=== PATIENT | female | born 1990 | race Caucasian/White ===

== ENCOUNTER → 2019-04-01 08:46 | Outpatient (BNVA) | payer SELFPAY | PROVIDERS: Family Provider Internal Medicine; Visit Provider Nurse Practitioner Psychiatric/Mental Health | DX: F43.12 Post-traumatic stress disorder, chronic (principal); F33.2 Major depressive disorder, recurrent severe without psychotic features; F41.0 Panic disorder [episodic paroxysmal anxiety]; F17.210 Nicotine dependence, cigarettes, uncomplicated; Z86.59 Personal history of other mental and behavioral disorders | CPT/HCPCS: 99214 ==

== ENCOUNTER 2019-09-07 17:31 | Emergency (ER) | payer SELFPAY ==
--- NOTE | 2019-09-07 17:37 | XRR_ITS ---
PROCEDURE INFORMATION: Exam: XR Right Ankle Exam date and time: 09/07/2019 5:49 PM Age: 29 years old Clinical indication: Injury or trauma; Fall; Initial encounter; Sprain or strain; Right; Injury date: 2 wks ago; [place] details[place], foot/ankle pain TECHNIQUE: Imaging protocol: XR Right ankle. Views: Frontal and lateral views. COMPARISON: CR Foot 2 views, RIGHT [id number] 06/26/2016 3:08 PM FINDINGS: Bones/joints: Normal. Soft tissues: Normal. XR/XR ankle RT 2V [id number] IMPRESSION: No acute findings.
[2019-09-07 17:38] VITALS: BP 127/73; PULSE 95; RESP 14; TEMP 36.9; O2SAT 100; BMI 26.6
--- NOTE | 2019-09-07 17:38 | XRR_ITS ---
PROCEDURE INFORMATION: Exam: XR Right Foot Exam date and time: 09/07/2019 5:49 PM Age: 29 years old Clinical indication: Injury or trauma; Fall; Initial encounter; Sprain or strain; Right; Injury date: 2 weeks ago; Injury details: [place], RT foot/ankle pain TECHNIQUE: Imaging protocol: XR Right foot. Views: Frontal and lateral views. COMPARISON: CR Foot 2 views, RIGHT [id number] 06/26/2016 3:08 PM FINDINGS: Bones/joints: No acute bony abnormality identified. A cornuate navicular is present, a sometimes symptomatic normal variant. Fifth DIP joint fusion, normal variant. Soft tissues: Normal. XR/XR foot RT 2V [id number] IMPRESSION: No acute bony injury identified.
--- NOTE | 2019-09-07 19:04 | ED_ITS ---
HPI - Extremity Problem General: Chief complaint: Extremity Injury, Lower Stated complaint: foot and ankle pain Time Seen by Provider: 09/07/19 18:51 Source: patient Mode of arrival: ambulatory Limitations: no limitations History of Present Illness: HPI Narrative: 29-year-old female states she went [place] and has had right-sided foot pain s gregory then. States it has been on the bottom of her foot for 4 to 5 days and is much worse with walking. States it is improved with rest. She states the pain is currently a 2 out of 10. Denies any fevers. Denies any known injury. Complaint: extremity pain Onset (ago): day(s) Location: right Severity scale (1-10): 5 Associated symptoms: Deny chest pain, fever(s) or rash Review of Systems Const: Denies: fever(s), chills, body aches or change in appetite Eyes: Denies: blurry vision or eye discomfort ENMT: Denies: throat pain or dental pain Card: Denies: chest pain Resp: Denies: dyspnea GI: Denies: abdominal pain, nausea, vomiting or diarrhea : Denies: dysuria Musc: Denies: neck pain or back pain Skin/Breast: Denies: rash Neuro: Denies: headache(s) Psych: Denies: depression Isaac/Lymph: Denies: easy bruising All/Imm: Denies: urticaria PFSH ED PFSH: Medical History (Updated 09/07/19 @ 19:04 by Douglas Meng MD) Chronic post-traumatic stress disorder History of eating disorder Major depressive disorder, recurrent severe without psychotic features Nicotine dependence, cigarettes, uncomplicated Panic disorder Social History (Updated 04/29/19 @ 08:08 by Zaida Byrd LPN) Smoking and tobacco status: current every day smoker cigarettes Packs smoked pe r day: 1 Physical Exam Const: COMMON NORMALS: no acute distress, patient oriented x3 and healthy appearing HENMT: COMMON NORMALS: normocephalic and atraumatic HEAD & SCALP: normocephalic and atraumatic Eye: COMMON NORMALS: Equal, round and reactive pupils present and EOMs intact bilaterally PUPIL: Yes Equal, round and reactive pupils present Neck/C-Spine: COMMON NORMALS: full ROM and supple Chest: COMMONS NORMALS: normal inspection of the chest and normal palpation of entire chest wall Resp: COMMON NORMALS: normal respiratory effort, No retractions, No use of accessory muscles and clear to auscultation bilaterally AUSCULTATION: clear to auscultation bilaterally Cardio: COMMON NORMALS: regular rate, regular rhythm and No murmurs present (Cardio) RATE: regular rate RHYTHM: regular rhythm GI: COMMON NORMALS: Normal to inspection, nondistended, normoactive bowel sounds present, Soft to palpation, non-tender and no masses PALPATION: Yes Soft to palpation Extremity: COMMON NORMALS: normal to inspection and full ROM NARRATIVE EXTREMITY EXAM: No obvious deformity. She does have tenderness over plantar fascia of right foot. Neuro: COMMON NORMALS: patient oriented x3, moves all extremities and no focal motor deficits Psych: COMMON NORMALS: mental status grossly normal, Normal thought process present and cooperative THOUGHT PROCESS: Normal thought process present Skin: COMMON NORMALS: no rashes or lesions noted and no wounds GENERAL SKIN EXAM: no rashes or lesions noted Course Vital Signs: Vital signs: Vital Signs Temperature 98.5 F 09/07/19 17:38 Pulse Rate 95 09/07/19 17:38 Respiratory Rate 14 09/07/19 17:38 Blood Pressure 127/73 09/07/19 17:38 Pulse Oximetry 100 09/07/19 17:38 MDM - Extremity (Nontraumatic) MDM Narrative: Medical decision making narrative: Patient presents here with plantar fasciitis of the right foot. Patient given exercises to do and is to ice and will place on ibuprofen as well. She is stable for discharge and is return if worsening. Discharge Plan Discharge Patient Disposition: Home, Self-Care Clinical Impression: Plantar fasciitis of right foot Condition: Stable Prescriptions: New Naprosyn 500 mg tablet 500 mg PO BID PRN (Reason: pain) Qty: 20 RF: 0 No Action ibuprofen 600 mg tablet 600 mg PO Q6H PRNRF: 0 rizatriptan [Maxalt] 10 mg tablet 10 mg PO ONCE PRNRF: 0 lamotrigine [Lamictal] 200 mg tablet 200 mg PO BID Qty: 60 RF: 3 desvenlafaxine succinate [Pristiq] 100 mg tablet extended release 24 hr 100 mg PO QAM Qty: 30 RF: 3 clonazepam [Klonopin] 0.5 mg tablet 0.5 mg PO BID Qty: 60 RF: 3 cyproheptadine 4 mg tablet 4 mg PO .bedtime Qty: 30 RF: 3 Discharge Orders: Discharge Order (Routine); Ordered 09/07/19 Ordered By: Douglas Meng Referrals: TOÑO FOSTER DO [Primary Care Provider] - 1-3 days Discharge Diet: Advance as tolerated Discharge Activity: Resume usual activity Patient Instructions: Plantar Fasciitis Exercises (GEN), Plantar Fasciitis (ED) Coding 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
[2019-09-07] MEDS: HYDROcodone-acetaminophen 5-325 mg Tablet 1 TAB PO (19:12)
[2019-09-07 19:20] VITALS: RESP 16
== END 2019-09-07 19:20 | disposition home or self-care (01) ==
PROVIDERS: Emergency Provider Emergency Medicine; PCP Internal Medicine
DX: M72.2 Plantar fascial fibromatosis (principal); F17.210 Nicotine dependence, cigarettes, uncomplicated
CPT/HCPCS: 12345; 73600; 73620; 99281; 99283

== ENCOUNTER 2019-11-19 16:34 | Emergency (ER) | payer MEDICAID, SELFPAY ==
[2019-11-19 17:38] VITALS: BP 134/91; PULSE 95; RESP 17; TEMP 36.7; O2SAT 100; BMI 25.0
[2019-11-19 21:56] LABS: Basophils % 0.6 %; Eosinophils # 0.2 10^3/uL (0.0-0.8); Eosinophils % 3.9 %; Hematocrit 43.6 % (37.0-47.0); Hemoglobin 14.5 g/dL (11.5-15.3); Lymphocytes # 1.5 10^3/uL (0.8-4.8); Lymphocytes % 30.9 %; Mean Corpuscular HGB Conc 33.3 g/dL (30.0-36.0); Mean Corpuscular Hemoglobin 31.7 pg (28.0-34.0); Mean Corpuscular Volume 95.2 fL (81-99); Mean Platelet Volume 9.6 fL (7.4-10.4); Monocytes # 0.3 10^3/uL (0.2-0.9); Monocytes % 6.4 %; Neutrophils # 2.83 10^3/uL (1.8-7.7); Nucleated Red Blood Cells % 0 %; Platelet Count 225 10^3/cmm (130-400); Red Blood Count 4.58 10^6/uL (4.1-5.3); Red Cell Distribution Width 12.1 % (12.1-15.1); White Blood Count 4.9 10^3/uL (4.0-10.0)
[2019-11-19 22:13] LABS: HCG, Serum Qual Negative (Negative)
[2019-11-19 22:19] LABS: Alanine Aminotransferase 12 U/L (0-33); Albumin Level 4.8 g/dL (3.5-5.2); Alkaline Phosphatase 52 IU/L (35-105); Anion Gap 12.5 (5-19); Aspartate Amino Transferase 15 U/L (0-32); Blood Urea Nitrogen 11 mg/dL (6-20); Calcium 9.1 mg/dL (8.5-10.5); Carbon Dioxide 26 mmol/L (22-29); Chloride 103 mmol/L (98-107); Globulin 3.1 g/dL (1.3-4.6); Glomerular Filtration Rate 65.1 mL/min (90-130); Glucose 90 mg/dL (65-115); Lipase 22 U/L (13-60); Osmolality Calculated 280 mOsm/kg (285-295); Potassium 4.5 mmol/L (3.5-5.1); Sodium 137 mmol/L (136-145); Total Bilirubin 0.3 mg/dL (0.15-1.2); Total Protein 7.9 g/dL (6.6-8.7)
[2019-11-19 22:22] LABS: INR 0.94 (0.8-1.2); Partial Thromboplastin Time 33.4 SECONDS (23.9-36.7)
[2019-11-20 00:35] VITALS: BP 121/93; PULSE 88; RESP 16; O2SAT 100
--- NOTE | 2019-11-20 00:37 | W.ED.ABDPA2 ---
HPI - Abdominal Pain General: Chief Complaint: Abdominal Pain Stated Complaint: sore throat/vommiting blood Time Seen by Provider: 11/20/19 00:37 Source: patient Mode of arrival: ambulatory Limitations: no limitations History of Present Illness: HPI narrative: Patient comes in today for complaints of 5 days of nausea with vomiting with burning into the esophagus. Patient does have a history of gastritis and heartburn. Patient denies any diarrhea. Patient reports no other symptoms or illness. Patient does take clonazepam, Lamictal, trazodone, and Effexor for mental disorder, patient also takes ibuprofen as needed. Related Data: Date of Last Menstrual Period: 10/28/19 Review of Systems General: Reports: 10 or more systems reviewed and unremarkable except in HPI and below GI: Reports: abdominal pain PFSH ED PFSH: Medical History (Updated 11/20/19 @ 02:12 by LUISA Camejo) Chronic post-traumatic stress disorder History of eating disorder Major depressive disorder, recurrent severe without psychotic features Nicotine dependence, cigarettes, uncomplicated Panic disorder Social History (Updated 04/29/19 @ 08:08 by Zaida Byrd LPN) Smoking and tobacco status: current every day smoker cigarettes Packs smoked per day: 1 Female Reproductive History: Date of last menstrual period: 10/28/19 : 2 Physical Exam Const: COMMON NORMALS: no acute distress and patient oriented x3 GENERAL APPEARANCE: cooperative HENMT: COMMON NORMALS: normocephalic, TM's normal bilaterally and Normal external nose present HEAD & SCALP: normal to inspection and normocephalic NOSE: Normal external nose present TYMPANIC MEMBRANE: TM's normal bilaterally MOUTH: Normal oral and palatal mucosa present THROAT: posterior oropharynx normal Eye: GENERAL EYE: appearance normal, both eyes and all related structures Neck/C-Spine: COMMON NORMALS: full ROM Lymph: LYMPHATIC: no lymphadenopathy noted Chest: COMMONS NORMALS: normal inspection of the chest Resp: COMMON NORMALS: normal respiratory effort EFFORT & INSPECTION: Yes able to speak in complete sentences Cardio: COMMON NORMALS: regular rate and regular rhythm RATE: regular rate RHYTHM: regular rhythm GI: INSPECTION: Yes normal to inspection AUSCULTATION: Yes normoactive bowel sounds PALPATION: Yes Tenderness to palpation present (GI) (epigastric) : COMMON NORMALS: Yes no CVA tenderness BLADDER/KIDNEY EXAM: Yes no CVA tenderness Back/Pelvis: COMMON NORMALS: no CVA tenderness and thoracic and lumbar spine normal to inspection Extremity: COMMON NORMALS: normal to inspection Neuro: COMMON NORMALS: patient oriented x3 and moves all extremities Psych: COMMON NORMALS: mental status grossly normal and cooperative Skin: COMMON NORMALS: no rashes or lesions noted GENERAL SKIN EXAM: no rashes or lesions noted Course Vital Signs: Vital signs: Vital Signs Temperature 98.1 F 11/19/19 17:38 Pulse Rate 76 11/20/19 02:06 Respiratory Rate 17 11/20/19 02:06 Blood Pressure 110/79 11/20/19 02:06 Pulse Oximetry 100 11/20/19 02:06 MDM - Abdominal Pain MDM Narrative: Medical decision making narrative: Patient comes in today for complaints of burning discomfort in her stomach. Exam notes abdomen soft with some midepigastric tenderness. Respirations are even lungs are clear to auscultation. Skin is warm and dry. Differential diagnosis includes pancreatitis, gastritis, GERD. Laboratory values were unremarkable. Urinalysis was clear. Patient was given Protonix, Zofran and Benadryl to help with her nausea and discomfort. She was given a dose of GI cocktail with some minimal relief. Suspect patient probably has a gastritis may be early peptic ulcer we will continue her on pantoprazole and recommend follow-up with surgeon for upper GI. Patient reported understanding agreed to plan. Lab Data: Labs: Lab Results 11/19/19 11/19/19 11/19/19 Range/Units 21:45 21:45 21:45 WBC 4.9 (4.0-10.0) 10^3/ uL RBC 4.58 (4.1-5.3) 10^6/u L Hgb 14.5 (11.5-15.3) g/dL Hct 43.6 (37.0-47.0) % MCV 95.2 (81-99) fL MCH 31.7 (28.0-34.0) pg MCHC 33.3 (30.0-36.0) g/dL RDW 12.1 (12.1-15.1) % Plt Count 225 (130-400) 10^3/c mm MPV 9.6 (7.4-10.4) fL Neut % (Auto) 58.0 % Lymph % (Auto) 30.9 % Kings % (Auto) 6.4 % Eos % (Auto) 3.9 % Baso % (Auto) 0.6 % Neut # (Auto) 2.83 (1.8-7.7) 10^3/u L Lymph # (Auto) 1.5 (0.8-4.8) 10^3/u L Kings # (Auto) 0.3 (0.2-0.9) 10^3/u L Eos # (Auto) 0.2 (0.0-0.8) 10^3/u L Baso # (Auto) 0.0 (0.0-0.1) 10^3/u L Nucleated RBC % (a uto) 0 % Nucleated RBCs # 0.0 /100WBC PT (12.1-14.9) SECO NDS INR (0.8-1.2) APTT (23.9-36.7) SECO NDS Sodium 137 (136-145) mmol/L Potassium 4.5 (3.5-5.1) mmol/L Chloride 103 (98-107) mmol/L Carbon Dioxide 26 (22-29) mmol/L Anion Gap 12.5 (5-19) BUN 11 (6-20) mg/dL Creatinine 1.0 H (0.5-0.9) mg/dL GFR Calculation 65.1 L (90-130) mL/min Glucose 90 (65-115) mg/dL Calculated Osmolal ity 280 L (285-295) mOsm/k g Calcium 9.1 (8.5-10.5) mg/dL Total Bilirubin 0.3 (0.15-1.2) mg/dL AST 15 (0-32) U/L ALT 12 (0-33) U/L Alkaline Phosphata se 52 (35-105) IU/L Total Protein 7.9 (6.6-8.7) g/dL Albumin 4.8 (3.5-5.2) g/dL Globulin 3.1 (1.3-4.6) g/dL Lipase 22 (13-60) U/L HCG, Qual Negative (Negative) Urine Color (Yellow) Urine Appearance (CLEAR) Urine pH (5-7) Ur Specific Gravit y (1.005-1.030) Urine Protein (Negative) Urine Glucose (UA) (Normal) Urine Ketones (Negative) Urine Blood (Negative) Urine Nitrate (Negative) Urine Bilirubin (Negative) Urine Urobilinogen (Negative) mg/dL Ur Leukocyte Gisela ase (Negative) Urine RBC (0-2) /hpf Urine WBC (0-5) /hpf Ur Squamous Epith Cells (0-5) /hpf Amorphous Sediment Urine Bacteria (NONE) /hpf 11/19/19 11/20/19 Range/Units 21:45 00:59 WBC (4.0-10.0) 10^3/ uL RBC (4.1-5.3) 10^6/u L Hgb (11.5-15.3) g/dL Hct (37.0-47.0) % MCV (81-99) fL MCH (28.0-34.0) pg MCHC (30.0-36.0) g/dL RDW (12.1-15.1) % Plt Count (130-400) 10^3/c mm MPV (7.4-10.4) fL Neut % (Auto) % Lymph % (Auto) % Kings % (Auto) % Eos % (Auto) % Baso % (Auto) % Neut # (Auto) (1.8-7.7) 10^3/u L Lymph # (Auto) (0.8-4.8) 10^3/u L Kings # (Auto) (0.2-0.9) 10^3/u L Eos # (Auto) (0.0-0.8) 10^3/u L Baso # (Auto) (0.0-0.1) 10^3/u L Nucleated RBC % (a uto) % Nucleated RBCs # /100WBC PT 12.80 (12.1-14.9) SECO NDS INR 0.94 (0.8-1.2) APTT 33.4 (23.9-36.7) SECO NDS Sodium (136-145) mmol/L Potassium (3.5-5.1) mmol/L Chloride (98-107) mmol/L Carbon Dioxide (22-29) mmol/L Anion Gap (5-19) BUN (6-20) mg/dL Creatinine (0.5-0.9) mg/dL GFR Calculation (90-130) mL/min Glucose (65-115) mg/dL Calculated Osmolal ity (285-295) mOsm/k g Calcium (8.5-10.5) mg/dL Total Bilirubin (0.15-1.2) mg/dL AST (0-32) U/L ALT (0-33) U/L Alkaline Phosphata se (35-105) IU/L Total Protein (6.6-8.7) g/dL Albumin (3.5-5.2) g/dL Globulin (1.3-4.6) g/dL Lipase (13-60) U/L HCG, Qual (Negative) Urine Color Yellow (Yellow) Urine Appearance Cloudy (CLEAR) Urine pH 6 (5-7) Ur Specific Gravit y 1.020 (1.005-1.030) Urine Protein Neg (Negative) Urine Glucose (UA) Norm (Normal) Urine Ketones Negative (Negative) Urine Blood Neg (Negative) Urine Nitrate Negative (Negative) Urine Bilirubin Neg (Negative) Urine Urobilinogen Norm (Negative) mg/dL Ur Leukocyte Gisela ase Negative (Negative) Urine RBC 0-4 H (0-2) /hpf Urine WBC 0-4 H (0-5) /hpf Ur Squamous Epith Cells 15-25 H (0-5) /hpf Amorphous Sediment Not Reportable Urine Bacteria 1+ H (NONE) /hpf Discharge Plan Discharge Patient Disposition: Home Clinical Impression: Gastritis Qualifiers: Gastritis type: unspecified gastritis Chronicity: acute Gastritis bleeding: presence of bleeding unspecified Qualified Code(s): K29.00 - Acute gastritis without bleeding Condition: Stable Prescriptions: New pantoprazole 40 mg tablet,delayed release (DR/EC) 40 mg PO DAILY Qty: 14 RF: 0 ondansetron HCl 4 mg tablet 4 mg PO Q8H PRN (Reason: nausea and vomiting) Qty: 7 RF: 0 No Action ibuprofen 600 mg tablet 600 mg PO Q6H PRNRF: 0 rizatriptan [Maxalt] 10 mg tablet 10 mg PO ONCE PRNRF: 0 cyproheptadine 4 mg tablet 8 mg PO .bedtime Qty: 60 RF: 3 venlafaxine [Effexor XR] 150 mg capsule,extended release 24hr 150 mg PO QAM Qty: 30 RF: 3 lamotrigine [Lamictal] 200 mg tablet 200 mg PO BID Qty: 60 RF: 3 clonazepam [Klonopin] 0.5 mg tablet 0.5 mg PO BID Qty: 60 RF: 3 trazodone 50 mg tablet 50 mg PO .bedtime PRN (Reason: sleep) Qty: 30 RF: 1 Naprosyn 500 mg tablet 500 mg PO BID PRN (Reason: pain) Qty: 20 RF: 0 Discharge Orders: Discharge Order (Routine); Ordered 11/20/19 Ordered By: Ming Mcfarlane Referrals: Tamika Joel DO [Primary Care Provider] - Discharge Diet: Usual diet Discharge Activity: Increase activity as tolerated Patient Instructions: Gastritis (ED) Activity Restrictions/Additional Instructions: Home and rest. Drink plenty of water. Healthy diet and exercise. Take medications as directed. Follow-up with primary care. 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
[2019-11-20] MEDS: pantoprazole 40 mg SDV IVP (00:56)
[2019-11-20] MEDS: ondansetron 2 mg/ML SDV 2 mL 4 MG IVP (00:56)
[2019-11-20] MEDS: sodium chloride 0.9% 1,000 ML 999 ML IV ×2 (00:57→02:35)
[2019-11-20] MEDS: lidocaine 2% viscous 15 ML, aluminum-mag hydrox-simethicon 30 ML, sucralfate oral liq 1 GM PO (01:51)
[2019-11-20 01:59] LABS: Add Urine Microscopic? YES; Bacteria Urine 1+ /hpf; Bilirubin Urine Neg (Negative); Blood Urine Neg (Negative); Glucose Urine UA Norm (Normal); Ketones Urine Negative (Negative); Leukocyte Esterase Urine Negative (Negative); Nitrate Urine Negative (Negative); Protein Urine Neg (Negative); RBC Urine 0-4 /hpf (0-2); Squamous Epithelial Cell Urine 15-25 /hpf (0-5); Urine Appearance Cloudy (CLEAR); Urine Color Yellow (Yellow); Urobilinogen Urine Norm (Negative); WBC Urine 0-4 /hpf (0-5); pH Urine 6 (5-7)
[2019-11-20] MEDS: diphenhydrAMINE 50 mg/mL SDV 1mL 25 MG IVP (02:01)
[2019-11-20 02:06] VITALS: BP 110/79; PULSE 76; RESP 17; O2SAT 100
[2019-11-20 03:31] VITALS: BP 108/72; PULSE 76; RESP 15; O2SAT 100
[2019-11-20 03:48] VITALS: BP 104/74; PULSE 81; RESP 16; O2SAT 100
--- NOTE | 2019-11-22 09:41 | DCPLANNER ---
manager front had message to schedule a follow up appointment for patient with general surgery. manager front called [facility], spoke with Margarita, gave clinic patients information. manager front was told that patients information would be printed and reviewed. Clinic will call patient with appointment information.
--- NOTE | 2019-11-26 14:35 | DCPLANNER ---
Patient has a follow up appointment scheduled for , December 02, 2019 at 11:[address] Lim. Clinic will call patient with appointment information.
--- NOTE | 2019-12-10 11:33 | DCPLANNER ---
Patient had a follow up appointment scheduled for 12.02.19 with [facility] - patient did attend appointment.
== END 2019-11-20 03:46 | disposition home or self-care (01) ==
PROVIDERS: Emergency Provider Nurse Practitioner Family; PCP Internal Medicine
DX: K29.00 Acute gastritis without bleeding (principal); F17.210 Nicotine dependence, cigarettes, uncomplicated
CPT/HCPCS: 36415; 80053; 81001; 83690; 84703; 85025; 85610; 85730; 96361; 96374; 96375; 99283; C9113; J1200; J2405; J7030

== ENCOUNTER → 2019-12-03 07:43 | Outpatient (BNVA) | payer OTHER, SELFPAY | PROVIDERS: PCP Internal Medicine; Visit Provider Surgery | DX: Z20.828 Contact with and (suspected) exposure to other viral communicable diseases (principal) | CPT/HCPCS: 87635 ==

== ENCOUNTER 2019-12-08 08:45 | Day surgery (SDC) | payer MEDICAID, SELFPAY ==
[2019-12-06 11:02] VITALS: BMI 25.0
[2019-12-08 09:07] VITALS: BP 127/91; PULSE 84; RESP 18; TEMP 36.3; O2SAT 97; BMI 25.0
[2019-12-08] MEDS: sodium chloride 0.9% 1,000 ML 30 ML IV (09:33)
[2019-12-08 09:35] LABS: OR HCG Qualitative Urine Negative (Negative)
--- NOTE | 2019-12-08 09:39 | ANES.PREANE2 ---
Pre-Anesthetic Assessment Pre-Anesthetic Assessment: Height/Weight: Height 1.7 m Weight 72.575 kg Temp Pulse Resp BP Pulse Ox 97.4 F L 84 18 127/91 97 12/08/19 09:07 12/08/19 09:07 12/08/19 09:07 12/08/19 09:07 12/08/19 09:07 Preop Diagnosis: Nausea and vomiting Proposed Procedure: Operation Date: 12/08/19 10:15 Proposed Procedures p EGD 42011 K92.0(Not Applicable) - Slade Lim MD Familial anesthetic complications: Wake up and freaks out, cries uncontrollably Last intake: Intake Last Liquid Date 12/07/19 Last Liquid Time 20:00 Last Solid Date 12/07/19 Last Solid Time 20:00 Social: Social History: Tobacco Exam: Pre-Anes Outpt Exam: alert, oriented x 3, clear to auscultation bilaterally and regular rate & rhythm Airway: Cervical ROM: WNL MP: 4 Dentition: Full GI: GI: GERD Musc/skel: Musc/skel: Lower Back Pain Neuropsych: Neuropsych: Depression Anesthetic Plan: ASA status: 2 Anesthesia: MAC Risk of > 500 ml blood loss (7ml/kg in children): No Meds/Allergies Current Medications: Current Medications Generic Name Dose Route Start Last Admin Trade Name Freq PRN Reason Stop Dose Admin Sodium Chloride 1,000 mls @ 30 ml s/hr 12/08/19 09:00 12/08/19 09:33 Sodium Chloride 0.9% IV 12/09/19 08:59 30 mls/hr .Q24H BLAKE Administration PFSH Anesthesia PFSH: Medical History (Updated 12/03/19 @ 11:50 by Slade Lim MD) Chronic post-traumatic stress disorder History of eating disorder Major depressive disorder, recurrent severe without psychotic features Nicotine dependence, cigarettes, uncomplicated Panic disorder Social History Smoking and tobacco status: current every day smoker cigarettes Packs smoked per day: 1 Female Reproductive History: Date of last menstrual period: 10/28/19 Data Anesthesia Other Labs: Laboratory Results - last 48 hr 12/08/19 09:34 Urine HCG, Qual Negative Cardiac Studies: No Data to Display
--- NOTE | 2019-12-08 09:55 | W.PM.OPSUD ---
Surgery/Procedure H&P Update DATE OF PROCEDURE: December 08, 2019 DATE H&P PERFORMED: 12/02/19 H&P UPDATE INFORMATION: I have reviewed H&P completed within last 30 days, I have examined patient prior to procedure and No changes to prior documentation PREOP DIAGNOSIS: Nausea and vomiting PRIMARY INDICATION FOR PROCEDURE: The same PLANNED PROCEDURE: Operation Date: 12/08/19 10:15 Proposed Procedures p EGD 81460 K92.0(Not Applicable) - Slade Lim MD
[2019-12-08 11:12] VITALS: BP 118/68; PULSE 77; RESP 16; TEMP 36.1; O2SAT 99
[2019-12-08 11:25] VITALS: BP 112/64; PULSE 90; RESP 16; O2SAT 100
--- NOTE | 2019-12-08 12:00 | ANE.PACU2 ---
Inpatient post-anesthesia follow up: Airway intact: Yes Vital signs: Temperature 97 F Pulse Rate 90 Respiratory Rate 16 Blood Pressure 112/64 Pulse Oximetry 100 Oxygen Delivery Me thod Room Air Oxygen Flow Rate Fraction of Inspir ed Oxygen Hydration adequate: Yes Nausea and vomiting: No Mental status: Baseline
[2019-12-09 06:09] LABS: H. Pylori / CLO Test Negative
== END 2019-12-08 11:34 | disposition home or self-care (01) ==
PROVIDERS: Anesthesiology; PCP Internal Medicine; Visit Provider Surgery
PROC: 0DJ08ZZ Inspection of Upper Intestinal Tract, Via Natural or Artificial Opening Endoscopic (ICD-10-PCS; CPT 43235; principal; 2019-12-08 10:15)
DX: R11.2 Nausea with vomiting, unspecified (principal); K21.0 Gastro-esophageal reflux disease with esophagitis; K29.70 Gastritis, unspecified, without bleeding; K29.80 Duodenitis without bleeding; F17.210 Nicotine dependence, cigarettes, uncomplicated
CPT/HCPCS: 12345; 43239; 84703; 87077; J2250; J2704; J7030

== ENCOUNTER 2019-12-25 10:21 | Emergency (ER) | payer MEDICAID, SELFPAY ==
[2019-12-25 10:29] VITALS: BP 136/91; PULSE 95; RESP 16; TEMP 36.1; O2SAT 99; BMI 26.9
--- NOTE | 2019-12-25 11:02 | ED_ITS ---
HPI - Back Pain/Injury General: Chief Complaint: Back Pain/Injury Stated Complaint: Back Pain, trouble walking Time Seen by Provider: 12/25/19 10:27 History of Present Illness: HPI Narrative: 29-year-old female presents to the emergency room with complaint of low back pain that began suddenly while she was driving. No recent heavy lifting no recent trauma or falls. She has had problems with recurrent chronic low back pain and she has been referred to neur osurgery but she has not yet seen them she is not had any advanced imaging either. She denies any difficulty with bowel or bladder. MD elicited complaint: back pain Pertinent past history: prior back pain Onset (ago): hour(s) Timing: constant Severity: severe Similar Symptoms Previously: Yes Quality: sharp and spasming Location: lumbar spine Radiation: left upper leg and left leg below the knee Exacerbating factors: movement and walking Relieving factors: immobilization and supine Associated symptoms: Reports difficulty walking; Deny abdominal pain, arthralgias, chills, change in bowel habits, dysuria, fati onofre, fecal incontinence, fever(s), hematuria, myalgias, nausea, numbness, syncope, tingling/numbness/burning, urinary frequency, urinary urgency, vomiting or weakness Treatments prior to arrival: NSAIDS Work related injury: No Review of Systems Const: Denies: fever(s), chills or fatigue ENMT: Denies: throat pain, ear or mastoid pain, nasal discharge or nasal congestion Card: Denies: syncope Resp: Denies: dyspnea, productive cough or non-productive cough GI: Denies: abdominal pain, nausea, vomiting, fecal incontinence or change in bowel habits : Denies: dysuria, urinary urgency or hematuria Skin/Breast: Denies: rash or pruritus Neuro: Reports: difficulty walking [facility] ED PFSH: Medical History Chronic post-traumatic stress disorder History of eating disorder Major depressive disorder, recurrent severe without psychotic features Nicotine dependence, cigarettes, uncomplicated Panic disorder Social History Smoking and tobacco status: current every day smoker cigarettes Packs smoked per day: 1 Female Reproductive History: Date of last menstrual period: 10/28/19 Physical Exam Const: COMMON NORMALS: no acute distress GENERAL APPEARANCE: cooperative and comfortable ORIENTATION/CONSCIOUSNESS: Yes awake, Yes oriented to person, Yes oriented to place and Yes oriented to time HENMT: COMMON NORMALS: normocephalic, atraumatic and hearing grossly normal bilaterally HEAD & SCALP: normocephalic and atraumatic Neck/C-Spine: COMMON NORMALS: no JVD Resp: COMMON NORMALS: normal respiratory effort, No retractions, No use of accessory muscles and clear to auscultation bilaterally AUSCULTATION: clear to auscultation bilaterally Cardio: COMMON NORMALS: no JVD, regular rate, regular rhythm and No murmurs present (Cardio) RATE: regular rate RHYTHM: regular rhythm GI: COMMON NORMALS: Soft to palpation and No hepatosplenomegaly present AUSCULTATION: Yes normoactive bowel sounds PALPATION: Yes Soft to palpation, No Tenderness to palpation present (GI), No Guarding due to palpation present (GI) and Yes No hepatosplenomegaly present Back/Pelvis: OTHER: Deep tendon reflexes equal bilaterally dorsi and plantar flexion 5 of 5 decreased sensation in the L4-5 distribution of the left leg. Straight leg raising equivocal she has worsening of pain with raising of the right or left leg. Is difficult for her to distinguish any significant worsening with leg raising in the left leg. Extremity: COMMON NORMALS: normal to inspection, capillary refill normal, no clubbing, cyanosis or edema, no calf tenderness and no pedal edema Neuro: SENSORIUM/ORIENTATION: Yes oriented to person, Yes oriented to place and Yes oriented to time Skin: COMMON NORMALS: no rashes or lesions noted GENERAL SKIN EXAM: no rashes or lesions noted Course Vital Signs: Vital signs: Vital Signs Temperature 97.0 F L 12/25/19 10:29 Pulse Rate 84 12/25/19 12:15 Respiratory Rate 17 12/25/19 12:15 Blood Pressure 141/74 12/25/19 12:15 Pulse Oximetry 100 12/25/19 12:15 MDM - Back Pain/Injury MDM Narrative: Medical decision making narrative: No evidence of cauda equina syndrome at this time work on pain control medications given as below follow-up with primary care doctor and neurosurgery as previously planned including outpatient advanced imaging. Return if has fecal incontinence or urinary retention or uncontrolled back pain. Discharge Plan Discharge Patient Disposition: Home Clinical Impression: Lumbar radiculopathy Condition: Stable Prescriptions: New hydrocodone-acetaminophen 5-325 mg tablet 1 tab PO Q6H PRN (Reason: pain) Qty: 15 RF: 0 Medrol (Daniel) 4 mg tablets,dose pack See Rx Instructions .ROUTE .COMPLEX Qty: 21 RF: 0 tizanidine 4 mg capsule 4 mg PO Q6H PRN (Reason: muscle spasticity) Qty: 30 RF: 0 No Action rizatriptan [Maxalt] 10 mg tablet 10 mg PO ONCE PRN (Reason: Headache) RF: 0 cyproheptadine 4 mg tablet 8 mg PO .bedtime Qty: 60 RF: 3 venlafaxine [Effexor XR] 150 mg capsule,extended release 24hr 150 mg PO QAM Qty: 30 RF: 3 lamotrigine [Lamictal] 200 mg tablet 200 mg PO BID Qty: 60 RF: 3 clonazepam [Klonopin] 0.5 mg tablet 0.5 mg PO BID Qty: 60 RF: 3 ondansetron HCl [Zofran] 4 mg tablet 4 mg PO Q6H PRN (Reason: nausea and vomiting) Qty: 25 RF: 1 pantoprazole [Protonix] 40 mg tablet,delayed release (DR/EC) 40 mg PO DAILY Qty: 30 RF: 2 sucralfate [Carafate] 1 gram tablet 1 gm PO BID 30 Days Qty: 60 RF: 2 venlafaxine [Effexor XR] 75 mg capsule,extended release 24hr 75 mg PO QAM Qty: 30 RF: 3 trazodone 50 mg tablet 50 mg PO .bedtime PRN (Reason: sleep) Qty: 30 RF: 3 pantoprazole 40 mg tablet,delayed release (DR/EC) 40 mg PO DAILY Qty: 14 RF: 0 ondansetron HCl 4 mg tablet 4 mg PO Q8H PRN (Reason: nausea and vomiting) Qty: 7 RF: 0 Discharge Orders: Discharge Order (Routine); Ordered 12/25/19 Ordered By: Huey Rolle Referrals: Tamika Joel DO [Primary Care Provider] - Discharge Diet: Usual diet Discharge Activity: Increase activity as tolerated Activity Restrictions/Additional Instructions: Up with your primary care doctor as scheduled. 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
[2019-12-25 11:14] VITALS: RESP 16
[2019-12-25] MEDS: ondansetron 2 mg/ML SDV 2 mL 4 MG IVP (11:14)
[2019-12-25] MEDS: morphine 4 mg/mL SDV 1 mL IVP ×2 (11:14→12:01)
[2019-12-25] MEDS: dexamethasone 10 mg/mL INJ IVP (11:15)
[2019-12-25] MEDS: ketorolac 30 mg/mL INJ IVP (11:21)
[2019-12-25 12:01] VITALS: RESP 18; O2SAT 100
[2019-12-25] MEDS: orphenadrine 30 mg/mL Inj 2 mL 60 MG IVP (12:02)
[2019-12-25 12:15] VITALS: BP 141/74; PULSE 84; RESP 17; O2SAT 100
== END 2019-12-25 12:15 | disposition home or self-care (01) ==
PROVIDERS: Emergency Provider Family Medicine; PCP Internal Medicine
DX: M54.16 Radiculopathy, lumbar region (principal); F17.210 Nicotine dependence, cigarettes, uncomplicated
CPT/HCPCS: 12345; 96374; 96375; 96376; 99282; 99283; J1100; J1885; J2270; J2360; J2405

== ENCOUNTER → 2019-12-29 08:54 | Outpatient (BNVA) | payer MEDICAID, SELFPAY | PROVIDERS: PCP Internal Medicine; Visit Provider Counselor Professional | DX: F43.12 Post-traumatic stress disorder, chronic (principal); F33.2 Major depressive disorder, recurrent severe without psychotic features; F41.0 Panic disorder [episodic paroxysmal anxiety]; F17.210 Nicotine dependence, cigarettes, uncomplicated; Z86.59 Personal history of other mental and behavioral disorders | CPT/HCPCS: 90834 ==

== ENCOUNTER 2020-01-05 08:21 | Emergency (ER) | payer MEDICAID, SELFPAY ==
[2020-01-05] VITALS (8 sets, daily range): BP systolic 113–128; BP diastolic 75–84; PULSE 75–94; RESP 16–20; TEMP 37.1; O2SAT 96–99; BMI 28.0
--- NOTE | 2020-01-05 08:41 | W.ED.FEMALGU ---
Documented by User: FE Blankenship 01/05/20 12:29 HPI - Female Genitourinary General: Chief complaint: Urogenital-Female Stated complaint: back pain, unable to void Time Seen by Provider: 01/05/20 08:26 History of Present Illness: HPI Narrative: 29-year-old female patient presents to the emergency department with 1 week onset of pain with urination, inability to void, feeling of urgency and inability to empty her bladder. Reports chills x 1 week, night sweats - reports vomiting and nausea. States has not vomited today, reports continued nausea. MD elicited complaint: dysuria, UTI , back pain (lower) and flank pain (right) Pertinent past history: pyelonephritis and other (VCUG repair; tubal ligation) Onset (ago): week(s) (1) Location of symptoms: suprapubic, low back and flank Severity: similar to previous episodes Severity scale (1-10): 10 Quality of pain: dull and aching Consistency: constant and progressively worsening Vaginal discharge: none Vaginal bleeding: none Urinary symptoms: Difficulty Urinating, Dysuria, Flank Pain, Frequency and Urgency Exacerbating factors: urination and movement Relieving factors: urination Associated symptoms: Reports abdominal pain, fevers/chills, nausea and weakness; Deny headache(s) Treatment prior to arrival: none Patient : No Date of Last Menstrual Period: 10/28/19 Review of Systems General: Reports: 10 or more systems reviewed and unremarkable except in HPI and below Const: Reports: chills, change in appetite, fatigue, malaise and night sweats; Denies: fever(s) or diaphoresis Eyes: Denies: blurry vision or eye redness ENMT: Denies: throat pain, dental pain or disequilibrium Card: Denies: chest pain, palpitations or irregular heart rhythm Resp: Denies: dyspnea, productive cough, non-productive cough or wheezing GI: Reports: abdominal pain, nausea and vomiting; Denies: diarrhea, constipation, fecal incontinence or change in stool character : Reports: flank pain, difficulty voiding, dysuria, urinary frequency, urinary urgency and urinary hesitancy; Denies: oliguria, urinary incontinence or hematuria Musc: Denies: neck pain, back pain or muscle cramps Skin/Breast: Denies: rash or pruritus Neuro: Denies: headache(s), weakness in extremities or behavioral changes Isaac/Lymph: Denies: easy bruising PFSH ED PFSH: Medical History (Updated 01/05/20 @ 12:34 by Huey Rolle DO) Chronic post-traumatic stress disorder History of eating disorder Major depressive disorder, recurrent severe without psychotic features Nicotine dependence, cigarettes, uncomplicated Panic disorder Social History Smoking and tobacco status: current every day smoker cigarettes Packs smoked per day: 1 Female Reproductive History: Date of last menstrual period: 10/28/19 Physical Exam Const: COMMON NORMALS: no acute distress, patient oriented x3, healthy appearing and alert GENERAL APPEARANCE: cooperative, comfortable and well hydrated HENMT: COMMON NORMALS: normocephalic, Normal external nose present and moist oral mucous membranes HEAD & SCALP: normocephalic NOSE: Normal external nose present Eye: COMMON NORMALS: Equal, round and reactive pupils present and EOMs intact bilaterally GENERAL EYE: appearance normal, both eyes and all related structures PUPIL: Yes Equal, round and reactive pupils present Neck/C-Spine: COMMON NORMALS: full ROM, no lymphadenopathy and no meningeal signs GENERAL: Yes normal visual inspection and Yes trachea midline CERVICAL SPINE: Yes cervical ROM normal Lymph: LYMPHATIC: no lymphadenopathy noted Chest: COMMONS NORMALS: normal inspection of the chest Resp: COMMON NORMALS: normal respiratory effort and clear to auscultation bilaterally AUSCULTATION: clear to auscultation bilaterally Cardio: COMMON NORMALS: regular rhythm, S1 normal heart sound present and S2 normal heart sound present RHYTHM: regular rhythm HEART SOUNDS: S1 normal heart sound present and S2 normal heart sound present GI: COMMON NORMALS: Soft to palpation and non-tender INSPECTION: Yes normal to inspection PALPATION: Yes Soft to palpation : COMMON NORMALS: Yes no CVA tenderness BLADDER/KIDNEY EXAM: Yes no CVA tenderness and Yes CVA tenderness Back/Pelvis: COMMON NORMALS: no CVA tenderness and thoracic and lumbar spine normal to inspection GENERAL BACK: Yes CVA tenderness CVA tenderness: bilateral THORACIC SPINE/UPPER BACK: Yes normal to inspection LUMBAR SPINE/LOWER BACK: Yes ROM limited (flexion and extension), Yes pain with ROM (flexion/extension), Yes lumbar spinal tenderness Lumbar spinal tenderness location: L1, L2, L3, L4 and L5, Yes paraspinal muscle tenderness Lumbar paraspinal muscle tenderness: bilateral, Yes straight leg raise positive right and Yes straight leg raise positive left PELVIS: Yes buttocks normal SACROILIAC JOINTS: Yes SI joints normal SACRUM: no ecchymosis COCCYX: no swelling Extremity: COMMON NORMALS: normal to inspection and capillary refill normal Neuro: COMMON NORMALS: patient oriented x3 and no focal motor deficits SENSORIUM/ORIENTATION: Yes alert MENINGEAL SIGNS: Yes no meningeal signs SPEECH: speech normal MONOFILAMENT EXAM PERFORMED: Yes Monofilament Exam (small fiber function): L great toe: normal, L 3rd toe: normal, L 5th toe: normal, R great toe: normal, R 3rd toe: normal and R 5th toe: normal MOTOR EXAM: 5/5 motor strength present throughout Psych: COMMON NORMALS: mental status grossly normal, Normal thought process present and cooperative ACTIVITY/MOTOR BEHAVIOR: Yes appropriate eye contact THOUGHT PROCESS: Normal thought process present Skin: COMMON NORMALS: no rashes or lesions noted and turgor normal GENERAL SKIN EXAM: no rashes or lesions noted and turgor normal Course ED course: transfer of care to Dr Rolle, patient to have MRI lumbar spine Vital Signs: Vital signs: Vital Signs Temperature 98.7 F 01/05/20 13:12 Pulse Rate 83 01/05/20 13:12 Respiratory Rate 16 01/05/20 13:12 Blood Pressure 114/83 01/05/20 13:12 Pulse Oximetry 96 01/05/20 13:12 MDM - Female Lab Data: Labs: Lab Results 01/05/20 01/05/20 01/05/20 Range/Units 08:30 09:08 09:08 WBC 4.9 (4.0-10.0) 10^3/ uL RBC 4.52 (4.1-5.3) 10^6/u L Hgb 14.3 (11.5-15.3) g/dL Hct 42.3 (37.0-47.0) % MCV 93.6 (81-99) fL MCH 31.6 (28.0-34.0) pg MCHC 33.8 (30.0-36.0) g/dL RDW 12.0 L (12.1-15.1) % Plt Count 225 (130-400) 10^3/c mm MPV 9.6 (7.4-10.4) fL Neut % (Auto) 55.7 % Lymph % (Auto) 32.6 % [place] % (Auto) 6.8 % Eos % (Auto) 4.1 % Baso % (Auto) 0.6 % Neut # (Auto) 2.70 (1.8-7.7) 10^3/u L Lymph # (Auto) 1.6 (0.8-4.8) 10^3/u L [place] # (Auto) 0.3 (0.2-0.9) 10^3/u L Eos # (Auto) 0.2 (0.0-0.8) 10^3/u L Baso # (Auto) 0.0 (0.0-0.1) 10^3/u L Nucleated RBC % (a uto) 0 % Nucleated RBCs # 0.0 /100WBC Sodium 135 L (136-145) mmol/L Potassium 4.1 (3.5-5.1) mmol/L Chloride 103 (98-107) mmol/L Carbon Dioxide 25 (22-29) mmol/L Anion Gap 11.1 (5-19) BUN 14 (6-20) mg/dL Creatinine 0.8 (0.5-0.9) mg/dL GFR Calculation 84.2 L (90-130) mL/min Glucose 89 (65-115) mg/dL Calculated Osmolal ity 280 L (285-295) mOsm/k g Calcium 9.2 (8.5-10.5) mg/dL Total Bilirubin 0.2 (0.15-1.2) mg/dL AST 13 (0-32) U/L ALT 9 (0-33) U/L Alkaline Phosphata se 49 (35-105) IU/L Total Protein 6.9 (6.6-8.7) g/dL Albumin 4.6 (3.5-5.2) g/dL Globulin 2.3 (1.3-4.6) g/dL Urine Color Yellow (Yellow) Urine Appearance Hazy A (CLEAR) Urine pH 6 (5-7) Ur Specific Gravit y 1.015 (1.005-1.030) Urine Protein Neg (Negative) Urine Glucose (UA) Norm (Normal) Urine Ketones Negative (Negative) Urine Blood 2+ H (Negative) Urine Nitrate Negative (Negative) Urine Bilirubin Neg (Negative) Urine Urobilinogen Norm (Negative) mg/dL Ur Leukocyte Gisela ase 1+ H (Negative) Urine RBC Rare (0-2) /hpf Urine WBC 0-4 H (0-5) /hpf Ur Squamous Epith Cells >100 H (0-5) /hpf Amorphous Sediment Not Reportable Urine Bacteria 1+ H (NONE) /hpf Urine Yeast Trace /hpf Discharge Plan Discharge Patient Disposition: Home Clinical Impression: Lumbar radicular pain, Urinary retention Condition: Stable Prescriptions: New Flomax 0.4 mg capsule 0.4 mg PO DAILY Qty: 20 RF: 0 hydrocodone-acetaminophen 5-325 mg tablet 1 tab PO Q6H PRN (Reason: pain) Qty: 10 RF: 0 Discontinued trazodone 50 mg tablet 50 mg PO BEDTIME PRN (Reason: sleep) RF: 0 No Action rizatriptan [Maxalt] 10 mg tablet 10 mg PO DAILY PRN (Reason: Headache) RF: 0 venlafaxine [Effexor XR] 150 mg capsule,extended release 24hr 150 mg PO QAM Qty: 30 RF: 3 lamotrigine [Lamictal] 200 mg tablet 200 mg PO BID Qty: 60 RF: 3 clonazepam [Klonopin] 0.5 mg tablet 0.5 mg PO BID Qty: 60 RF: 3 venlafaxine [Effexor XR] 75 mg capsule,extended release 24hr 75 mg PO QAM Qty: 30 RF: 3 pantoprazole 40 mg tablet,delayed release (DR/EC) 40 mg PO DAILY Qty: 14 RF: 0 tizanidine 4 mg capsule 4 mg PO Q6H PRN (Reason: muscle spasticity) Qty: 30 RF: 0 cyproheptadine 4 mg tablet 8 mg PO BEDTIME RF: 0 Discharge Orders: Discharge Order (Routine); Ordered 01/05/20 Ordered By: Huey Rolle Referrals: Tamika Joel DO [Primary Care Provider] - Discharge Diet: Usual diet Discharge Activity: Increase activity as tolerated Activity Restrictions/Additional Instructions: Case management will make an appointment with you to see Dr. Jeff. If you have worsening problems return. 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 She previously been seen with symptoms and had severe back pain with radicular pain at that time she had no urinary retention. We had advised her to return if it worsens she comes now today presenting with complaint of difficulty urinating as well. Initially seen by the GAME PROGRAMER I assumed care of the case urine is negative. She has decreased reflexes and sensation as well as loss of dorsal flexion at the ankle on the right foot. MD elicited complaint: dysuria and flank pain Onset (ago): day(s) Severity: severe Quality of pain: sharp Consistency: constant Vaginal discharge: none Vaginal bleeding: none Urinary symptoms: Difficulty Urinating and Dysuria Exacerbating factors: other (Ambulation) Relieving factors: other (Resting supine) Associated symptoms: Reports abdominal pain and nausea; Deny short of breath, fevers/chills, headache(s), rash, seizures, syncope, vaginal bleeding, vaginal discharge or weakness Treatment prior to arrival: none Review of Systems Const: Reports: chills; Denies: fever(s) or body aches ENMT: Denies: throat pain, ear or mastoid pain, nasal discharge or nasal congestion Card: Denies: syncope Resp: Denies: dyspnea, productive cough or non-productive cough GI: Reports: abdominal pain, nausea and vomiting : Denies: vaginal discharge Skin/Breast: Denies: rash or pruritus Neuro: Denies: headache(s) PFS ED PFSH: Medical History (Updated 01/05/20 @ 12:34 by Huey Rolle DO) Chronic post-traumatic stress disorder History of eating disorder Major depressive disorder, recurrent severe without psychotic features Nicotine dependence, cigarettes, uncomplicated Panic disorder Social History Smoking and tobacco status: current every day smoker cigarettes Packs smoked per day: 1 Physical Exam Const: GENERAL APPEARANCE: cooperative ORIENTATION/CONSCIOUSNESS: Yes awake, Yes oriented to person, Yes oriented to place and Yes oriented to time HENMT: COMMON NORMALS: normocephalic, atraumatic and hearing grossly normal bilaterally HEAD & SCALP: normocephalic and atraumatic Neck/C-Spine: COMMON NORMALS: no JVD Resp: COMMON NORMALS: normal respiratory effort, No retractions, No use of accessory muscles and clear to auscultation bilaterally AUSCULTATION: clear to auscultation bilaterally Cardio: COMMON NORMALS: no JVD, regular rate, regular rhythm and No murmurs present (Cardio) RATE: regular rate RHYTHM: regular rhythm GI: COMMON NORMALS: Soft to palpation and No hepatosplenomegaly present AUSCULTATION: Yes normoactive bowel sounds PALPATION: Yes Soft to palpation, No Tenderness to palpation present (GI), No Guarding due to palpation present (GI) and Yes No hepatosplenomegaly present : SPECULUM EXAM - VAGINA: No vaginal bleeding OB/EXTERNAL & SPECULUM: No vaginal bleeding Extremity: COMMON NORMALS: normal to inspection, capillary refill normal, no clubbing, cyanosis or edema, no calf tenderness and no pedal edema Neuro: SENSORIUM/ORIENTATION: Yes oriented to person, Yes oriented to place and Yes oriented to time OTHER: Diminished patellar tendon reflexes +1/4 on the right. 1 of 4 strength of dorsiflexion of the at the ankle and of the right great toe. Patient reports decreased sensation to sharp touch of the right compared to left. Skin: COMMON NORMALS: no rashes or lesions noted GENERAL SKIN EXAM: no rashes or lesions noted Course ED course: MRI of the lumbar spine does not show any evidence of cauda equina syndrome. Her symptoms are primarily on her right leg it is the left leg that has the more pronounced disc bulge. Discussed with Dr. Lawton, he concurs. He will graciously see the patient in the next 2 days if needed. We will try to get her set up with that through case management so she has short-term follow-up. Also set her up to see Dr. Jeff. I did call him and reviewed the case with him working to have her hold her trazodone start tamsulosin, And we will remove the Vasquez. Turn if she has further problems. Vital Signs: Vital signs: Vital Signs Temperature 98.7 F 01/05/20 13:12 Pulse Rate 83 01/05/20 13:12 Respiratory Rate 16 01/05/20 13:12 Blood Pressure 114/83 01/05/20 13:12 Pulse Oximetry 96 01/05/20 13:12 MDM - Female Lab Data: Labs: Lab Results 01/05/20 01/05/20 01/05/20 Range/Units 08:30 09:08 09:08 WBC 4.9 (4.0-10.0) 10^3/ uL RBC 4.52 (4.1-5.3) 10^6/u L Hgb 14.3 (11.5-15.3) g/dL Hct 42.3 (37.0-47.0) % MCV 93.6 (81-99) fL MCH 31.6 (28.0-34.0) pg MCHC 33.8 (30.0-36.0) g/dL RDW 12.0 L (12.1-15.1) % Plt Count 225 (130-400) 10^3/c mm MPV 9.6 (7.4-10.4) fL Neut % (Auto) 55.7 % Lymph % (Auto) 32.6 % [place] % (Auto) 6.8 % Eos % (Auto) 4.1 % Baso % (Auto) 0.6 % Neut # (Auto) 2.70 (1.8-7.7) 10^3/u L Lymph # (Auto) 1.6 (0.8-4.8) 10^3/u L [place] # (Auto) 0.3 (0.2-0.9) 10^3/u L Eos # (Auto) 0.2 (0.0-0.8) 10^3/u L Baso # (Auto) 0.0 (0.0-0.1) 10^3/u L Nucleated RBC % (a uto) 0 % Nucleated RBCs # 0.0 /100WBC Sodium 135 L (136-145) mmol/L Potassium 4.1 (3.5-5.1) mmol/L Chloride 103 (98-107) mmol/L Carbon Dioxide 25 (22-29) mmol/L Anion Gap 11.1 (5-19) BUN 14 (6-20) mg/dL Creatinine 0.8 (0.5-0.9) mg/dL GFR Calculation 84.2 L (90-130) mL/min Glucose 89 (65-115) mg/dL Calculated Osmolal ity 280 L (285-295) mOsm/k g Calcium 9.2 (8.5-10.5) mg/dL Total Bilirubin 0.2 (0.15-1.2) mg/dL AST 13 (0-32) U/L ALT 9 (0-33) U/L Alkaline Phosphata se 49 (35-105) IU/L Total Protein 6.9 (6.6-8.7) g/dL Albumin 4.6 (3.5-5.2) g/dL Globulin 2.3 (1.3-4.6) g/dL Urine Color Yellow (Yellow) Urine Appearance Hazy A (CLEAR) Urine pH 6 (5-7) Ur Specific Gravit y 1.015 (1.005-1.030) Urine Protein Neg (Negative) Urine Glucose (UA) Norm (Normal) Urine Ketones Negative (Negative) Urine Blood 2+ H (Negative) Urine Nitrate Negative (Negative) Urine Bilirubin Neg (Negative) Urine Urobilinogen Norm (Negative) mg/dL Ur Leukocyte Gisela ase 1+ H (Negative) Urine RBC Rare (0-2) /hpf Urine WBC 0-4 H (0-5) /hpf Ur Squamous Epith Cells >100 H (0-5) /hpf Amorphous Sediment Not Reportable Urine Bacteria 1+ H (NONE) /hpf Urine Yeast Trace /hpf Discharge Plan Discharge Patient Disposition: Home Clinical Impression: Lumbar radicular pain, Urinary retention Condition: Stable Prescriptions: New Flomax 0.4 mg capsule 0.4 mg PO DAILY Qty: 20 RF: 0 hydrocodone-acetaminophen 5-325 mg tablet 1 tab PO Q6H PRN (Reason: pain) Qty: 10 RF: 0 Discontinued trazodone 50 mg tablet 50 mg PO BEDTIME PRN (Reason: sleep) RF: 0 No Action rizatriptan [Maxalt] 10 mg tablet 10 mg PO DAILY PRN (Reason: Headache) RF: 0 venlafaxine [Effexor XR] 150 mg capsule,extended release 24hr 150 mg PO QAM Qty: 30 RF: 3 lamotrigine [Lamictal] 200 mg tablet 200 mg PO BID Qty: 60 RF: 3 clonazepam [Klonopin] 0.5 mg tablet 0.5 mg PO BID Qty: 60 RF: 3 venlafaxine [Effexor XR] 75 mg capsule,extended release 24hr 75 mg PO QAM Qty: 30 RF: 3 pantoprazole 40 mg tablet,delayed release (DR/EC) 40 mg PO DAILY Qty: 14 RF: 0 tizanidine 4 mg capsule 4 mg PO Q6H PRN (Reason: muscle spasticity) Qty: 30 RF: 0 cyproheptadine 4 mg tablet 8 mg PO BEDTIME RF: 0 Discharge Orders: Discharge Order (Routine); Ordered 01/05/20 Ordered By: Huey Rolle Referrals: Tamika Joel DO [Primary Care Provider] - Discharge Diet: Usual diet Discharge Activity: Increase activity as tolerated Activity Restrictions/Additional Instructions: Case management will make an appointment with you to see Dr. Jeff. If you have worsening problems return. Discharge Date/Time: 01/05/20 13:19 Coding Level of Care Code ED Band Head Saw Operator for Jimg Fwd Exam Comprehensive
[2020-01-05 08:46] LABS: Add Urine Microscopic? YES; Bilirubin Urine Neg (Negative); Blood Urine 2+ (Negative); Glucose Urine UA Norm (Normal); Ketones Urine Negative (Negative); Leukocyte Esterase Urine 1+ (Negative); Nitrate Urine Negative (Negative); Protein Urine Neg (Negative); Specific Gravity, Urine 1.015 (1.005-1.030); Urine Appearance Hazy (CLEAR); Urine Color Yellow (Yellow); Urobilinogen Urine Norm (Negative); pH Urine 6 (5-7)
[2020-01-05 08:48] LABS: Add Urine Culture? No; Bacteria Urine 1+ /hpf; RBC Urine RARE /hpf (0-2); Squamous Epithelial Cell Urine >100 /hpf (0-5); WBC Urine 0-4 /hpf (0-5)
--- NOTE | 2020-01-05 09:04 | MR_ITS ---
WS: [id number] MRI LUMBAR SPINE NONCONTRAST HISTORY: urinary retention COMPARISON: 06/05/2018 TECHNIQUE: Sagittal and axial multisequence imaging is submitted. Mild RIGHT convex curvature the thoracic spine and LEFT curvature lumbar spine. No signal abnormality within the cord. Posterior alignment is normal. Benign hemangioma at L4. Disc spaces and vertebral body heights are well-preserved. Conus terminates normally at L1. L1-L2: Normal. L2-L3: Normal. L3-L4: Normal. L4-L5: Very mild annular disc bulging. There is significant motion artifact. No stenosis appreciated. Small amount of fluid in the facet joints. L5-S1: Mild annular disc bulging. Slightly asymmetric disc protrusion to the LEFT with very mild cont act on the L5 nerve root. Similar to the prior study. Urinary bladder is moderately well distended. MR/MR lumbar spine wo con* [id number] IMPRESSION: 1. No significant lumbar spine stenosis. 2. No compression upon the conus or mass effect. 3. Mild broad-based disc bulging LEFT L5-S1 foramen with mild contact on the L 5 nerve root. Similar to the study of 06/05/2018.
[2020-01-05] MEDS: ondansetron 2 mg/ML SDV 2 mL 4 MG IVP (09:12)
[2020-01-05] MEDS: sodium chloride 0.9% 500 ML 999 ML IV (09:13)
[2020-01-05] MEDS: morphine 4 mg/mL SDV 1 mL 6 MG IVP ×2 (09:15→11:33)
[2020-01-05 09:18] LABS: Basophils % 0.6 %; Eosinophils # 0.2 10^3/uL (0.0-0.8); Eosinophils % 4.1 %; Hematocrit 42.3 % (37.0-47.0); Hemoglobin 14.3 g/dL (11.5-15.3); Lymphocytes # 1.6 10^3/uL (0.8-4.8); Lymphocytes % 32.6 %; Mean Corpuscular HGB Conc 33.8 g/dL (30.0-36.0); Mean Corpuscular Hemoglobin 31.6 pg (28.0-34.0); Mean Corpuscular Volume 93.6 fL (81-99); Mean Platelet Volume 9.6 fL (7.4-10.4); Monocytes # 0.3 10^3/uL (0.2-0.9); Monocytes % 6.8 %; Neutrophils % 55.7 %; Nucleated Red Blood Cells % 0 %; Platelet Count 225 10^3/cmm (130-400); Red Blood Count 4.52 10^6/uL (4.1-5.3); White Blood Count 4.9 10^3/uL (4.0-10.0)
[2020-01-05 09:35] LABS: Alanine Aminotransferase 9 U/L (0-33); Albumin Level 4.6 g/dL (3.5-5.2); Alkaline Phosphatase 49 IU/L (35-105); Anion Gap 11.1 (5-19); Aspartate Amino Transferase 13 U/L (0-32); Blood Urea Nitrogen 14 mg/dL (6-20); Calcium 9.2 mg/dL (8.5-10.5); Carbon Dioxide 25 mmol/L (22-29); Chloride 103 mmol/L (98-107); Globulin 2.3 g/dL (1.3-4.6); Glomerular Filtration Rate 84.2 mL/min (90-130); Glucose 89 mg/dL (65-115); Osmolality Calculated 280 mOsm/kg (285-295); Potassium 4.1 mmol/L (3.5-5.1); Sodium 135 mmol/L (136-145); Total Bilirubin 0.2 mg/dL (0.15-1.2); Total Protein 6.9 g/dL (6.6-8.7)
--- NOTE | 2020-01-05 10:21 | PC.NURSE ---
Gone to MRI
--- NOTE | 2020-01-05 11:16 | PC.NURSE ---
Back from MRI, C/O low back and leg pain
[2020-01-05] MEDS: orphenadrine 30 mg/mL Inj 2 mL 60 MG IVP (11:34)
[2020-01-05] MEDS: dexamethasone 4 mg/mL INJ 10 MG IVP (11:49)
--- NOTE | 2020-01-05 12:41 | DCPLANNER ---
mining manager was asked to schedule a follow up appointment for patient with Dr. Jeff. mining manager called the office of Dr. Jeff, spoke with Shavonne, gave clinic patients information. mining manager was told that patients information would be printed and reviewed. Clinic will call patient with appointment information.
--- NOTE | 2020-01-05 13:15 | DCPLANNER ---
track manager was asked to schedule a follow up appointment for patient with Dr. Lawton. track manager called the ortho clinic, spoke with Pat, gave clinic patients information. track manager was told that patients information would be printed and reviewed. Clinic will call patient with appointment information.
--- NOTE | 2020-01-06 07:59 | DCPLANNER ---
Patient has a follow up appointment scheduled for Friday, January 17, [address] at 3:[address] Jeff. Clinic will call patient with appointment information.
--- NOTE | 2020-01-06 11:07 | DCPLANNER ---
manager social spoke with Pat at [facility] to confirm if an appointment was scheduled for patient. manager social was told that patient has a neuro surgeon in [place] that she see, and will continue to see her physician. No appointment scheduled at this time.
--- NOTE | 2020-02-09 12:28 | DCPLANNER ---
Patient had a follow up appointment scheduled for 01.17.[address] Jeff - patient did attend appointment.
== END 2020-01-05 13:19 | disposition home or self-care (01) ==
PROVIDERS: Nurse Practitioner Family; Emergency Provider Family Medicine; PCP Internal Medicine
DX: M54.16 Radiculopathy, lumbar region (principal); R33.9 Retention of urine, unspecified; F17.210 Nicotine dependence, cigarettes, uncomplicated
CPT/HCPCS: 12345; 51702; 72148; 80053; 81001; 85025; 96374; 96375; 96376; 99283; 99284; J0131; J1100; J2270; J2360; J2405; J7040

== ENCOUNTER 2020-01-06 13:06 | Outpatient (CLI) | payer MEDICAID, SELFPAY ==
--- NOTE | 2020-01-06 13:45 | MR_ITS ---
WS: [id number] MRI LUMBAR SPINE POST CONTRAST ONLY. HISTORY: DDD LUMBAR; RADICULOPATHY SPINAL REGION COMPARISON: None available. TECHNIQUE: Sagittal and axial multisequence imaging is submitted. Sagittal and axial T1 fat sat seque nces post-ProHance 16 cc IV. Only postcontrast imaging is submitted. Noncontrast MRI was performed on 01/05/2020. There are no enhancing lesions within the spinal canal or involvement of the conus. There is no mass effect upon the conus of the nerve roots. No discitis or osteomyelitis. MR/MR lumbar spine w con [id number] IMPRESSION: 1. No discitis or osteomyelitis. 2. No compression upon the conus.
== END 2020-01-06 13:07 | disposition home or self-care (01) ==
LOC: RADSHAW 13:09
PROVIDERS: PCP Family Medicine; Visit Provider Neurological Surgery
DX: M51.36 Other intervertebral disc degeneration, lumbar region (principal); M54.16 Radiculopathy, lumbar region
CPT/HCPCS: 72149; A9579

== ENCOUNTER → 2020-01-07 09:06 | Outpatient (BNVA) | payer MEDICAID, SELFPAY | PROVIDERS: PCP Family Medicine; Visit Provider Family Medicine | DX: R30.0 Dysuria (principal); F17.219 Nicotine dependence, cigarettes, with unspecified nicotine-induced disorders | CPT/HCPCS: 81000; 87077; 87086; 87184 ==

== ENCOUNTER → 2020-01-14 07:50 | Outpatient (BNVA) | payer MEDICAID, SELFPAY | PROVIDERS: PCP Family Medicine; Visit Provider Nurse Practitioner Psychiatric/Mental Health | DX: F33.2 Major depressive disorder, recurrent severe without psychotic features (principal); F41.0 Panic disorder [episodic paroxysmal anxiety]; F43.12 Post-traumatic stress disorder, chronic; F17.210 Nicotine dependence, cigarettes, uncomplicated; Z86.59 Personal history of other mental and behavioral disorders | CPT/HCPCS: 99214 ==

== ENCOUNTER → 2020-01-17 14:10 | Outpatient (BNVA) | payer MEDICAID, SELFPAY | PROVIDERS: PCP Family Medicine; Referring Provider Family Medicine; Visit Provider Nurse Practitioner Family | DX: R30.0 Dysuria (principal); N39.0 Urinary tract infection, site not specified | CPT/HCPCS: 81003 ==

== ENCOUNTER → 2020-01-18 07:56 | Outpatient (BNVA) | payer MEDICAID, SELFPAY | PROVIDERS: PCP Family Medicine; Visit Provider Counselor Professional | DX: F33.2 Major depressive disorder, recurrent severe without psychotic features (principal); F43.12 Post-traumatic stress disorder, chronic | CPT/HCPCS: 90834 ==

== ENCOUNTER 2020-01-25 11:32 | Emergency (ER) | payer MEDICAID, SELFPAY ==
[2020-01-25 11:39] VITALS: BP 117/79; PULSE 92; RESP 15; TEMP 36.4; O2SAT 99; BMI 28.1
--- NOTE | 2020-01-25 11:51 | W.ED.DENTAL ---
HPI - Dental/Oral General: Chief complaint: Dental/Oral Stated complaint: swollen gums post teeth removal Time Seen by Provider: 01/25/20 11:40 Source: patient and family Mode of arrival: ambulatory Limitations: no limitations History of Present Illness: HPI Narrative: Patient is a 29-year-old female who had her wisdom tooth taken out on her left lower mouth. She said that during the procedure the dentist realized it was infected when pus was draining while trying to take it out. She also said that the dentist had difficulty removing the tooth and had to drill down into her jaw. She was started on amoxicillin for 10 days. The tooth was taken out 7 days ago. She denies any fever, no nausea or vomiting. She does have pain on swallowing but no difficulty swallowing. She also has left jaw pain. She also is worried about the hole in her mouth where the tooth was, she does not want to eat solid foods because she does not want the food to get stuck in there. She states that she has been in pain since the tooth was removed. She has been taking hydrocodone's with no improvement. She is unable to take NSAIDs because she has stomach ulcers. MD Complaint: tooth pain Location: Tooth # (17) Onset (ago): week(s) (1) Duration: constant Severity: severe Relieving factors: nothing Context: history of dental caries Associated symptoms: Reports gum swelling and odynophagia; Denies fever(s), sore throat or tongue swelling Review of Systems General: Reports: 10 or more systems reviewed and unremarkable except in HPI and below Const: Denies: fever(s) Eyes: Denies: change in vision or blurry vision ENMT: Reports: odynophagia and dental pain; Denies: enlarged tonsils or oral sores Card: Denies: palpitations, irregular heart rhythm, edema or swelling of feet/ankles Resp: Denies: dyspnea, productive cough or non-productive cough GI: Denies: abdominal pain, nausea or vomiting : Denies: flank pain, difficulty voiding, dysuria, urinary frequency, urinary urgency or urinary hesitancy Musc: Denies: neck pain, back pain or extremity swelling Skin/Breast: Denies: rash, pruritus or erythema Neuro: Denies: headache(s), numbness in extremities or weakness in extremities Endo: Denies: polyuria, polydipsia or tired all the time All/Imm: Denies: tongue swelling PFSH ED PFSH: Medical History Chronic post-traumatic stress disorder History of eating disorder Major depressive disorder, recurrent severe without psychotic features Nicotine dependence, cigarettes, uncomplicated Panic disorder Recurrent UTI Surgical History H/O ureter repair History of colonoscopy (~2015) History of esophagogastroduodenoscopy (EGD) (~11/2019) History of laparoscopic cholecystectomy Family History Mother Chronic kidney disease (CKD) Grandfather Cancer Kidney Social History Smoking and tobacco status: current every day smoker cigarettes Packs smoked per day: 1 Alcohol intake: never Substance/Drug Use: never Marital status: Female Reproductive History: Date of last menstrual period: 01/22/20 Physical Exam Const: COMMON NORMALS: no acute distress, average body habitus, patient oriented x3, no limitations and healthy appearing HENMT: COMMON NORMALS: normocephalic and atraumatic HEAD & SCALP: normocephalic and atraumatic TEETH & GINGIVA: Yes caries (multiple teeth with caries.) THROAT: posterior oropharynx normal and tonsils absent OTHER: She has poor oral hygiene with multiple teeth with significant caries. ICD site of the surgically removed wisdom tooth on the left lower jaw, it is tender but not swollen and not erythematous. I did not appreciate any purulent drainage. No signs of infection at this time. Lymph: LYMPHATIC: no lymphadenopathy noted Resp: COMMON NORMALS: normal respiratory effort, No retractions, No use of accessory muscles and clear to auscultation bilaterally AUSCULTATION: clear to auscultation bilaterally Cardio: COMMON NORMALS: regular rate, regular rhythm, S1 normal heart sound present, S2 normal heart sound present and No murmurs present (Cardio) RATE: regular rate RHYTHM: regular rhythm HEART SOUNDS: S1 normal heart sound present and S2 normal heart sound present GI: COMMON NORMALS: Normal to inspection, nondistended, normoactive bowel sounds present, Soft to palpation and non-tender PALPATION: Yes Soft to palpation Extremity: COMMON NORMALS: normal to inspection, full ROM, capillary refill normal and no pedal edema Neuro: COMMON NORMALS: patient oriented x3 Course ED course: 29-year-old female with dental pain post surgical removal of an infected molar. On evaluation there does not appear to be any current infection, and I explained as much. I explained to her that she possibly has a dry socket or just normal pain post surgery especially as he was infected and required significant manipulation to have it taken out. I advised her regarding the defect still in her gum she needs to call this dental surgeon today and discuss it with him and to see if he needs to close it or let it heal by secondary intention. I explained that he possibly left the open due to the purulent drainage that came out when he was taking the tooth out. But she needs to call him today. She voiced understanding and is in agreement with the plan. Vital Signs: Vital signs: Vital Signs Temperature 97.5 F L 01/25/20 11:39 Pulse Rate 85 01/25/20 12:06 Respiratory Rate 16 01/25/20 12:06 Blood Pressure 122/82 01/25/20 12:06 Pulse Oximetry 100 01/25/20 12:06 MDM - Dental/Oral MDM Narrative: Medical decision making narrative: 29-year-old female patient who has pain post molar removal. On examination he does not appear complicated. We will discharge her home with some more pain medication and she is advised to call the dentist today for further advice. Medical Records: Attestation: I reviewed the patient's medical records. Discharge Plan Discharge Patient Disposition: Home Clinical Impression: Dry tooth socket, Pain, dental, Dental caries Condition: Stable Prescriptions: New Percocet 5-325 mg tablet 1 tab PO Q8H PRN (Reason: pain) Qty: 12 RF: 0 Continued rizatriptan [Maxalt] 10 mg tablet 10 mg PO DAILY PRN (Reason: Headache) RF: 0 clonazepam [Klonopin] 0.5 mg tablet 0.5 mg PO BID Qty: 60 RF: 3 venlafaxine [Effexor XR] 150 mg capsule,extended release 24hr 150 mg PO QAM Qty: 30 RF: 3 lamotrigine [Lamictal] 200 mg tablet 200 mg PO BID Qty: 60 RF: 3 ciprofloxacin HCl 500 mg tablet 500 mg PO BID Qty: 60 RF: 1 venlafaxine [Effexor XR] 75 mg capsule,extended release 24hr 75 mg PO QAM Qty: 30 RF: 3 sucralfate [Carafate] 1 gram tablet 1 gm PO BID RF: 0 pantoprazole 40 mg tablet,delayed release (DR/EC) 40 mg PO DAILY Qty: 14 RF: 0 tizanidine 4 mg capsule 4 mg PO Q6H PRN (Reason: muscle spasticity) Qty: 30 RF: 0 Flomax 0.4 mg capsule 0.4 mg PO DAILY Qty: 20 RF: 0 Discharge Orders: Discharge Order (Routine); Ordered 01/25/20 Ordered By: Yeimi Ayers Referrals: Era Yuen DO [Primary Care Provider] - 1-3 days Discharge Diet: As Directed Discharge Activity: Increase activity as tolerated Patient Instructions: Dental Caries (ED), Toothache (ED), Dry Socket (ED) Activity Restrictions/Additional Instructions: Return for any new or worsening symptoms. Call the dentist to remove the tooth today for further advice, especially regarding the hole left by the removal of the tooth. Take the pain medicine as needed. Follow the advice of the dentist. Coding Level of Care Code ED Helper Driver for Jimg Fwd Exam Detailed
[2020-01-25 12:06] VITALS: BP 122/82; PULSE 85; RESP 16; O2SAT 100
[2020-01-25 12:24] VITALS: BP 122/82; PULSE 83; RESP 15; O2SAT 100
== END 2020-01-25 12:26 | disposition home or self-care (01) ==
PROVIDERS: Emergency Provider Family Medicine; PCP Family Medicine
DX: M27.3 Alveolitis of jaws (principal); K02.9 Dental caries, unspecified; F17.210 Nicotine dependence, cigarettes, uncomplicated
CPT/HCPCS: 12345; 99281; 99282

== ENCOUNTER → 2020-01-27 07:37 | Outpatient (BNVA) | payer MEDICAID, SELFPAY | PROVIDERS: PCP Family Medicine; Visit Provider Counselor Professional | DX: F33.2 Major depressive disorder, recurrent severe without psychotic features (principal); F43.12 Post-traumatic stress disorder, chronic; Z86.59 Personal history of other mental and behavioral disorders; F41.0 Panic disorder [episodic paroxysmal anxiety] | CPT/HCPCS: 90834 ==

== ENCOUNTER → 2020-02-08 08:25 | Outpatient (BNVA) | payer MEDICAID, SELFPAY | PROVIDERS: PCP Family Medicine; Visit Provider Counselor Professional | DX: F33.2 Major depressive disorder, recurrent severe without psychotic features (principal); F43.12 Post-traumatic stress disorder, chronic; Z86.59 Personal history of other mental and behavioral disorders; F41.0 Panic disorder [episodic paroxysmal anxiety] | CPT/HCPCS: 90832 ==

== ENCOUNTER → 2020-02-10 11:58 | Outpatient (BNVA) | payer MEDICAID, SELFPAY | PROVIDERS: PCP Family Medicine; Visit Provider Family Medicine | DX: Z01.419 Encounter for gynecological examination (general) (routine) without abnormal findings (principal); F33.2 Major depressive disorder, recurrent severe without psychotic features; F41.0 Panic disorder [episodic paroxysmal anxiety]; F43.12 Post-traumatic stress disorder, chronic | CPT/HCPCS: 88175; 99214 ==

== ENCOUNTER 2020-02-24 08:25 | Outpatient (CLI) | payer MEDICAID, SELFPAY ==
--- NOTE | 2020-02-24 08:45 | US_ITS ---
WS: [id number] RENAL ULTRASOUND HISTORY: RECURRENT UTI COMPARISON: 09/28/2015 TECHNIQUE: 2-D and color Doppler imaging of the kidney submitted. Right kidney: 11.0 cm x 4.8 cm x 4.5 cm. Normal echogenicity with no hydronephrosis or mass. Left kidney: 10.8 cm x 5.2 cm x 5.8 cm. Normal echogenicity with no hydronephrosis or mass. Aorta: Normal. Urinary Bladder: Normal distention. US/US renal BI* [id number] IMPRESSION: Normal renal ultrasound.
== END 2020-02-24 08:26 | disposition home or self-care (01) ==
LOC: US 08:25
PROVIDERS: PCP Family Medicine; Visit Provider Urology
DX: N39.0 Urinary tract infection, site not specified (principal)
CPT/HCPCS: 76770; 81003

== ENCOUNTER 2020-02-29 16:41 | Emergency (ER) | payer MEDICAID, SELFPAY ==
--- NOTE | 2020-02-29 | XRR_ITS ---
[facility] Final Radiology Report Call: [phone] assistance Online chat: [email or web address] Name: DELROY ALMEIDA Age: 29Years F Date: 02/29/2020 MRN: [id number] SSN: -- : 1990 Study: XR SPINE THORACIC 3 VIEWS Requesting Physician: Maria M Reagan Images: 5 Add?l Studies: Provided Clinical History: PROCEDURE INFORMATION: Exam: XR Thoracic Spine, 3 Views Exam date and time: 02/29/2020 6:28 PM Age: 29 years old Clinical indication: Other: Mid to lower back; Pain in thoracic spine; Patient HX: Back pain while bending TECHNIQUE: Imaging protocol: XR of the thoracic spine, 3 views. COMPARISON: No relevant prior studies available. FINDINGS: Bones/joints: Normal. No acute fracture. Normal alignment. Soft tissues: Unremarkable. IMPRESSION: No acute findings. Thank you for allowing us to participate in the care of your patient. Dictated and Authenticated by: Rick Geronimo MD 02/29/2020 7:17 PM Central Time ([place] & [place]) CORNELIUS
[2020-02-29 17:17] VITALS: BP 115/80; PULSE 101; RESP 15; TEMP 36.2; O2SAT 99
--- NOTE | 2020-02-29 18:03 | XRR_ITS ---
PROCEDURE INFORMATION: Exam: XR Lumbosacral Spine, 2 or 3 Views Exam date and time: 02/29/2020 6:22 PM Age: 29 years old Clinical indication: Low back pain; Additional info: Back pain while bending TECHNIQUE: Imaging protocol: XR of the lumbosacral spine, 2 or 3 views. Other technique: AP, lateral and spot lateral views of the lumbar spine are submitted. COMPARISON: MR lumbar spine w con [id number] 01/06/2020 1:57 PM FINDINGS: Bones/joints: Slight leftward lumbar spinal curvature. Moderate T12-L1 degenerative disc narrowing. Anterior L4-L5 vertebral body marginal osteophytes. Mild-moderate L5-S1 disc height loss. Soft tissues: The gallbladder is likely surgically absent, with metallic clips overlying the gallbladder fossa. XR/XR lumbar spine 2-3V* [id number] IMPRESSION: 1. Degenerative changes as above. 2. No acute lumbar spinal bony abnormality identified. 3. Prior cholecystectomy.
--- NOTE | 2020-02-29 18:20 | W.ED.BACK ---
HPI - Back Pain/Injury General: Chief Complaint: Back Pain/Injury Stated Complaint: BACK PAIN Time Seen by Provider: 02/29/20 17:53 History of Present Illness: HPI Narrative: 29-year-old female patient presents to the emergency department with mid and lower back pain. She reports was slightly bent at the waist, wrapping a gift when she felt her back pop. She states her son also squeezed her too tight today at the onset of back pain. She reports neurosurgeon evaluation is scheduled for [facility] in March due to her chronic back pain. She denies urinary or bladder incontinence. Reports back pain is similar to that she is experienced in the past. She denies increased leg weakness or other neurological symptoms. MD elicited complaint: back pain and back injury Pertinent past history: prior back pain Onset (ago): hour(s) (1-2) Timing: constant Severity: moderate Similar Symptoms Previously: Yes Quality: dull, aching and spasming Location: lumbar spine and thoracic spine Radiation: buttocks Exacerbating factors: movement and walking Relieving factors: other (rest) Context: turning/twisting and bending Associated symptoms: Reports no associated symptoms and difficulty walking (due to pain to the lower and middle back); Deny abdominal pain, chills, dysuria, fever(s), nausea or vomiting Treatments prior to arrival: NSAIDS Work related injury: No Review of Systems General: Reports: 10 or more systems reviewed and unremarkable except in HPI and below Const: Denies: fever(s), chills or diaphoresis Eyes: Denies: blurry vision or eye redness ENMT: Denies: throat pain, dental pain or disequilibrium Card: Denies: chest pain, palpitations or irregular heart rhythm Resp: Denies: dyspnea, productive cough, non-productive cough or wheezing GI: Denies: abdominal pain, nausea or vomiting : Denies: difficulty voiding or dysuria Musc: Reports: back pain and limited range of motion (lumbar and mid thoracic); Denies: neck pain, joint swelling, muscle cramps or muscle weakness Skin/Breast: Denies: rash or pruritus Neuro: Reports: difficulty walking (due to pain to the lower and middle back); Denies: headache(s), numbness in extremities, weakness in extremities or behavioral changes Psych: Denies: anxiety or depression Isaac/Lymph: Denies: easy bruising PFSH ED PFSH: Medical History Chronic post-traumatic stress disorder History of eating disorder Major depressive disorder, recurrent severe without psychotic features Nicotine dependence, cigarettes, uncomplicated Panic disorder Recurrent UTI Surgical History H/O ureter repair History of colonoscopy (~2015) History of esophagogastroduodenoscopy (EGD) (~11/2019) History of laparoscopic cholecystectomy Family History Mother Chronic kidney disease (CKD) Grandfather Cancer Kidney Social History Smoking and tobacco status: current every day smoker cigarettes Packs smoked per day: 1 Alcohol intake: never Substance/Drug Use: never Marital status: Current occupational status: unemployed History of recent travel: No Female Reproductive History: Date of last menstrual period: 02/15/20 Physical Exam Const: COMMON NORMALS: no acute distress, average body habitus, patient oriented x3, healthy appearing, alert and well nourished EXAM LIMITATIONS: no behavioral limitations and no physical limitations GENERAL APPEARANCE: cooperative, comfortable, well kempt, well developed and well hydrated; not combative and not ill appearing NUTRITIONAL APPEARANCE: thin ORIENTATION/CONSCIOUSNESS: Yes awake, Yes oriented to person, Yes oriented to place and Yes oriented to time HENMT: COMMON NORMALS: normocephalic, atraumatic, Normal external nose present and moist oral mucous membranes HEAD & SCALP: normal to inspection, normocephalic and atraumatic FACE & SINUS: normal facial exam, sinuses nontender and face symmetric NOSE: Normal external nose present MOUTH: Normal oral and palatal mucosa present, lip normal and tongue normal THROAT: posterior oropharynx normal, tonsils normal and uvula midline Eye: COMMON NORMALS: Equal, round and reactive pupils present and EOMs intact bilaterally GENERAL EYE: appearance normal, both eyes and all related structures PUPIL: Yes Equal, round and reactive pupils present Neck/C-Spine: COMMON NORMALS: full ROM, no lymphadenopathy, supple and no meningeal signs GENERAL: Yes normal visual inspection and Yes trachea midline CERVICAL SPINE: Yes cervical ROM normal Lymph: LYMPHATIC: no lymphadenopathy noted Chest: COMMONS NORMALS: normal inspection of the chest and normal palpation of entire chest wall Resp: COMMON NORMALS: normal respiratory effort, No retractions, No use of accessory muscles and clear to auscultation bilaterally EFFORT & INSPECTION: Yes able to speak in complete sentences and No paradoxical thoraco-abdominal movements AUSCULTATION: clear to auscultation bilaterally Cardio: COMMON NORMALS: regular rhythm, S1 normal heart sound present, S2 normal heart sound present and Peripheral pulses 2+ throughout RHYTHM: regular rhythm HEART SOUNDS: S1 normal heart sound present and S2 normal heart sound present PERIPHERAL PULSES: Peripheral pulses 2+ throughout GI: COMMON NORMALS: Normal to inspection, nondistended, normoactive bowel sounds present, Soft to palpation and non-tender INSPECTION: Yes normal to inspection PALPATION: Yes Soft to palpation : COMMON NORMALS: Yes no CVA tenderness BLADDER/KIDNEY EXAM: Yes no CVA tenderness Back/Pelvis: COMMON NORMALS: no CVA tenderness and thoracic and lumbar spine normal to inspection THORACIC SPINE/UPPER BACK: Yes normal to inspection, Yes ROM limited, Yes thoracic spinal tenderness, Yes paraspinal muscle tenderness and Yes paraspinal muscle spasm LUMBAR SPINE/LOWER BACK: Yes normal to inspection, Yes ROM limited, Yes lumbar spinal tenderness, Yes paraspinal muscle tenderness, Yes paraspinal muscle spasm, Yes straight leg raise positive right, Yes straight leg raise positive left and Yes bend over test abnormal SACROILIAC JOINTS: Yes SI joints normal COCCYX: no swelling Extremity: COMMON NORMALS: normal to inspection and capillary refill normal Neuro: BARB COMA SCALE: document GCS findings Barb coma scale eye opening: Spontaneous Barb coma scale verbal response: Orientated [place] coma scale motor response: Obey commands [place] coma scale total score: 15 COMMON NORMALS: patient oriented x3 and no focal motor deficits SENSORIUM/ORIENTATION: Yes alert, Yes oriented to person, Yes oriented to place and Yes oriented to time MENINGEAL SIGNS: Yes no meningeal signs GAIT: Yes Normal gait present MOTOR EXAM: no tremor noted and Normal motor muscle tone present throughout Psych: COMMON NORMALS: mental status grossly normal, Normal thought process present and cooperative APPEARANCE: Yes well kempt ACTIVITY/MOTOR BEHAVIOR: Yes appropriate eye contact THOUGHT PROCESS: Normal thought process present Skin: COMMON NORMALS: no rashes or lesions noted and turgor normal GENERAL SKIN EXAM: no rashes or lesions noted and turgor normal Course ED course: 29-year-old female patient presents to the emergency department with onset of middle and lower back pain. Reports was slightly bent over wrapping gifts at time of onset. She also reports was hugged by her son who exacerbated lower back pain. MRI lumbar spine completed December 2019 did reveal slight disc bulge with mild contact of L5 root on the left. No other abnormalities appreciated. States has appointment with neurosurgeon in March. She is requesting prednisone as this has been helpful in the past, she is also requesting cyclobenzaprine which is also effective. Advised not to take cyclobenzaprine with Klonopin. Verbalized understanding. Advised on activity restriction and no bending or lifting greater than 10 pounds until improved. Also advised to return to the emergency department if she developed worsening pain or concerning symptoms. Vital Signs: Vital signs: Vital Signs Temperature 97.2 F L 02/29/20 17:17 Pulse Rate 101 H 02/29/20 17:17 Respiratory Rate 15 02/29/20 17:17 Blood Pressure 115/80 02/29/20 17:17 Pulse Oximetry 99 02/29/20 17:17 Discharge Plan Discharge Patient Disposition: Home Clinical Impression: Strain of thoracic spine Strain of lumbar region Qualifiers: Encounter type: initial encounter Qualified Code(s): S39.012A - Strain of muscle, fascia and tendon of lower back, initial encounter Condition: Stable Prescriptions: New cyclobenzaprine 10 mg tablet 10 mg PO TID PRN (Reason: muscle spasm) Qty: 20 RF: 0 Medrol (Daniel) 4 mg tablets,dose pack See Rx Instructions .ROUTE .COMPLEX Qty: 21 RF: 0 No Action rizatriptan [Maxalt] 10 mg tablet 10 mg PO DAILY PRN (Reason: Headache) RF: 0 venlafaxine [Effexor XR] 150 mg capsule,extended release 24hr 150 mg PO QAM Qty: 30 RF: 3 lamotrigine [Lamictal] 200 mg tablet 200 mg PO BID Qty: 60 RF: 3 clonazepam [Klonopin] 0.5 mg tablet 0.5 mg PO BID Qty: 60 RF: 3 mirtazapine 7.5 mg tablet 7.5 mg PO .bedtime Qty: 30 RF: 1 lidocaine 1.8 % adhesive patch,medicated 1 patch topical DAILY Qty: 30 RF: 1 sucralfate [Carafate] 1 gram tablet 1 gm PO BID RF: 0 ibuprofen 800 mg tablet 800 mg PO .prn RF: 0 Flomax 0.4 mg capsule 0.4 mg PO DAILY Qty: 30 RF: 12 ciprofloxacin HCl 500 mg tablet 500 mg PO BID Qty: 60 RF: 4 pantoprazole 40 mg tablet,delayed release (DR/EC) 40 mg PO DAILY Qty: 14 RF: 0 Discharge Orders: Discharge ED (Routine); Ordered 02/29/20 Ordered By: Maria M Reagan Referrals: Era Yuen DO [Primary Care Provider] - Discharge Diet: Usual diet Discharge Activity: Limit activity as instructed Patient Instructions: Low Back Strain (ED), Thoracic Pain (ED), Chronic Back Pain (ED) Activity Restrictions/Additional Instructions: Continue follow-up with your primary care provider/neurosurgeon as scheduled Turn to the emergency room if you develop urinary or bladder incontinence or inability to feel your legs, leg weakness or other concerning symptoms Continue current medications for back pain May take Tylenol as needed for pain, 1 g of Tylenol every 8 hours, continue with cool and warm compresses to the area No bending, straining or lifting over 10 pounds until back is improved Coding Level of Care Code ED Telephone Order Supervisor for Treasure Fwd Exam Comprehensive
[2020-02-29] MEDS: orphenadrine 30 mg/mL Inj 2 mL 60 MG IM (19:15)
[2020-02-29] MEDS: predniSONE 20 mg Tablet PO (19:40)
[2020-02-29 19:57] VITALS: BP 115/80; PULSE 96; RESP 16; O2SAT 99
== END 2020-02-29 19:58 | disposition home or self-care (01) ==
PROVIDERS: Emergency Provider Nurse Practitioner Family; PCP Family Medicine
DX: S39.012A Strain of muscle, fascia and tendon of lower back, initial encounter (principal); S29.012A Strain of muscle and tendon of back wall of thorax, initial encounter; F17.210 Nicotine dependence, cigarettes, uncomplicated; X50.1XXA Overexertion from prolonged static or awkward postures, initial encounter
CPT/HCPCS: 12345; 72072; 72100; 96372; 99281; 99283; J2360; J7512

== ENCOUNTER 2020-03-08 12:56 | Emergency (ER) | payer MEDICAID, SELFPAY ==
[2020-03-08 13:12] VITALS: BP 124/62; PULSE 124; RESP 16; TEMP 37.1; O2SAT 98; BMI 26.6
--- NOTE | 2020-03-08 13:48 | ED_ITS ---
Documented by User: FE Blankenship 03/11/20 09:45 HPI - COVID General: Chief Complaint: COVID symptoms Stated Complaint: fever, body aches, back pain, FELICIANO Time Seen by Provider: 03/08/20 13:25 Triage information: Has fever, cough or shortness of breath . No known COVID + exposure last 14 days History of Present Illness: HPI Narrative: 29 year old female presents to the ED with fever (100.4), chills, body aches and FELICIANO - reports chronic back pain, seen in the ED recently - reports potential COVID exposure with recent ED visit for LBP - denies loss of taste or smell. MD complaint: has COVID symptoms Prior covid testing: no COVID 19 common symptoms: positive fever(s), chills, fatigue, body aches, headache(s), nasal congestion and nausea; negative non-productive cough, productive cough, dyspnea, throat pain, vomiting or diarrhea COVID 19 other sytmptoms: negative chest pain or confusion Onset (ago): day(s) (2) Severity: moderate Treatment prior to arrival: ibuprofen COVID Results: SARS-CoV-2 Antigen (Rapid) Positive (Negative) H 03/08/20 14:54 03/08/20 Nasal/Oral Coronavirus 2019 PCR Negative 12/03/19 07:43 12/03/19 Review of Systems General: Reports: 10 or more systems reviewed and unremarkable except in HPI and below Const: Reports: fever(s), chills, body aches and fatigue Eyes: Denies: blurry vision or eye redness ENMT: Reports: nasal discharge, nasal congestion and post nasal drip; Denies: throat pain, hoarseness, halitosis, ear discharge or sinus pain Card: Denies: chest pain, palpitations or irregular heart rhythm Resp: Denies: dyspnea, productive cough, non-productive cough, wheezing or chest congestion GI: Reports: nausea; Denies: abdominal pain, vomiting, heartburn, diarrhea or constipation : Denies: difficulty voiding or dysuria Musc: Denies: neck pain, back pain or joint pain Skin/Breast: Denies: rash or pruritus Neuro: Reports: headache(s); Denies: numbness in extremities, difficulty walking, dizziness or confusion Psych: Reports: anxiety, depression and change in appetite Isaac/Lymph: Denies: easy bruising FOR[facility]LY [facility], LATER [facility] ED PFSH: Medical History Chronic post-traumatic stress disorder History of eating disorder Major depressive disorder, recurrent severe without psychotic features Nicotine dependence, cigarettes, uncomplicated Panic disorder Recurrent UTI Surgical History H/O ureter repair History of colonoscopy (~2015) History of esophagogastroduodenoscopy (EGD) (~11/2019) History of laparoscopic cholecystectomy Family History Mother Chronic kidney disease (CKD) Grandfather Cancer Kidney Social History Smoking and tobacco status: current every day smoker cigarettes Packs smoked per day: 1 Alcohol intake: never Marital status: Current occupational status: unemployed History of recent travel: No Female Reproductive History: Date of last menstrual period: 02/16/20 Physical Exam Const: COMMON NORMALS: no acute distress, patient oriented x3, healthy appearing, alert and well nourished GENERAL APPEARANCE: cooperative, comfortable and well hydrated; not ill appearing and not frail appearing NUTRITIONAL APPEARANCE: thin ORIENTATION/CONSCIOUSNESS: Yes awake, Yes oriented to person, Yes oriented to place and Yes oriented to time HENMT: COMMON NORMALS: normocephalic, atraumatic, Normal external nose present and moist oral mucous membranes HEAD & SCALP: normal to inspection, normocephalic and atraumatic FACE & SINUS: normal facial exam and face symmetric NOSE: Normal external nose present THROAT: posterior oropharynx normal and uvula midline Eye: COMMON NORMALS: Equal, round and reactive pupils present and EOMs intact bilaterally GENERAL EYE: appearance normal, both eyes and all related structures PUPIL: Yes Equal, round and reactive pupils present Neck/C-Spine: COMMON NORMALS: full ROM and no lymphadenopathy GENERAL: Yes normal visual inspection and Yes trachea midline CERVICAL SPINE: Yes cervical ROM normal Lymph: LYMPHATIC: no lymphadenopathy noted Chest: COMMONS NORMALS: normal inspection of the chest and normal palpation of entire chest wall Resp: COMMON NORMALS: normal respiratory effort, No retractions, No use of accessory muscles and clear to auscultation bilaterally EFFORT & INSPECTION: Yes able to speak in complete sentences AUSCULTATION: clear to auscultation bilaterally Cardio: COMMON NORMALS: regular rate, regular rhythm, S1 normal heart sound present, S2 normal heart sound present and Peripheral pulses 2+ throughout RATE: regular rate RHYTHM: regular rhythm HEART SOUNDS: S1 normal heart sound present and S2 normal heart sound present PERIPHERAL PULSES: Peripheral pulses 2+ throughout GI: COMMON NORMALS: Normal to inspection, nondistended, normoactive bowel sounds present, Soft to palpation and non-tender INSPECTION: Yes normal to inspection PALPATION: Yes Soft to palpation : COMMON NORMALS: Yes no CVA tenderness BLADDER/KIDNEY EXAM: Yes no CVA tenderness Back/Pelvis: COMMON NORMALS: no CVA tenderness THORACIC SPINE/UPPER BACK: Yes normal to inspection and Yes thoracic ROM normal LUMBAR SPINE/LOWER BACK: Yes normal to inspection, Yes lumbar spinal tenderness, Yes paraspinal muscle tenderness Lumbar paraspinal muscle tenderness: left and Yes straight leg raise positive left Extremity: COMMON NORMALS: normal to inspection, full ROM and capillary refill normal Neuro: COMMON NORMALS: patient oriented x3 and no focal motor deficits SENSORIUM/ORIENTATION: Yes alert, Yes oriented to person, Yes oriented to place and Yes oriented to time SPEECH: speech normal GAIT: Yes Normal gait present MOTOR EXAM: 5/5 motor strength present throughout Psych: COMMON NORMALS: mental status grossly normal, Normal thought process present and cooperative ACTIVITY/MOTOR BEHAVIOR: Yes appropriate eye contact THOUGHT PROCESS: Normal thought process present Skin: COMMON NORMALS: no rashes or lesions noted and turgor normal GENERAL SKIN EXAM: no rashes or lesions noted and turgor normal Course ED course: 29-year-old female patient presents to the emergency department with 2-day history of body aches, fever and headache. Covid positive here in the ED. Staff reports someone taking off her coat, patient became dizzy, fell off the exam bed, staff witnessed her landing on her bottom. She is complaining of left shoulder pain and dizziness/headache. X-ray left shoulder requested as well as CT of the head. Dr. Rolle was notified of fall. Patient is alert and oriented x4, neurologically at baseline. Extremities were examined for further injuries. Not able to reproduce pain to the lumbar spine upon exam. Muscle strength 5/5 x 4. Vital Signs: Vital signs: Vital Signs Temperature 98.7 F 03/08/20 13:12 Pulse Rate 86 03/08/20 19:49 Respiratory Rate 18 03/08/20 19:49 Blood Pressure 116/85 03/08/20 19:49 Pulse Oximetry 99 03/08/20 19:49 MDM - COVID Lab Data: Labs: Lab Results 03/08/20 03/08/20 03/08/20 Range/Units 14:54 15:25 15:25 WBC 1.7 L (4.0-10.0) 10^3/ uL RBC 4.87 (4.1-5.3) 10^6/u L Hgb 15.2 (11.5-15.3) g/dL Hct 45.5 (37.0-47.0) % MCV 93.4 (81-99) fL MCH 31.2 (28.0-34.0) pg MCHC 33.4 (30.0-36.0) g/dL RDW 11.8 L (12.1-15.1) % Plt Count 197 (130-400) 10^3/c mm MPV 9.6 (7.4-10.4) fL Neut % (Auto) 35.5 % Lymph % (Auto) 45.3 % [place] % (Auto) 15.1 % Eos % (Auto) 2.9 % Baso % (Auto) 1.2 % Neut # (Auto) 0.61 L* (1.8-7.7) 10^3/u L Lymph # (Auto) 0.8 (0.8-4.8) 10^3/u L [place] # (Auto) 0.3 (0.2-0.9) 10^3/u L Eos # (Auto) 0.1 (0.0-0.8) 10^3/u L Baso # (Auto) 0.0 (0.0-0.1) 10^3/u L Nucleated RBC % (a uto) 0 % Nucleated RBCs # 0.0 /100WBC ESR 4 (0-15) mm/hr Sodium (136-145) mmol/L Potassium (3.5-5.1) mmol/L Chloride (98-107) mmol/L Carbon Dioxide (22-29) mmol/L Anion Gap (5-19) BUN (6-20) mg/dL Creatinine (0.5-0.9) mg/dL GFR Calculation (90-130) mL/min Glucose (65-115) mg/dL Calculated Osmolal ity (285-295) mOsm/k g Calcium (8.5-10.5) mg/dL Total Bilirubin (0.15-1.2) mg/dL AST (0-32) U/L ALT (0-33) U/L Alkaline Phosphata se (35-105) IU/L C-Reactive Protein (0.0-4.9) mg/L Total Protein (6.6-8.7) g/dL Albumin (3.5-5.2) g/dL Globulin (1.3-4.6) g/dL Urine Color (Yellow) Urine Appearance (CLEAR) Urine pH (5-7) Ur Specific Gravit y (1.005-1.030) Urine Protein (Negative) Urine Glucose (UA) (Normal) Urine Ketones (Negative) Urine Blood (Negative) Urine Nitrate (Negative) Urine Bilirubin (Negative) Urine Urobilinogen (Negative) mg/dL Ur Leukocyte Gisela ase (Negative) Urine RBC (0-2) /hpf Urine WBC (0-5) /hpf Ur Squamous Epith Cells (0-5) /hpf Amorphous Sediment Urine Bacteria (NONE) /hpf Influenza Type A A g (Negative) Influenza Type B A g (Negative) SARS-CoV-2 Ag (Rap id) Positive H (Negative) 03/08/20 03/08/20 03/08/20 Range/Units 15:25 15:25 17:40 WBC (4.0-10.0) 10^3/ uL RBC (4.1-5.3) 10^6/u L Hgb (11.5-15.3) g/dL Hct (37.0-47.0) % MCV (81-99) fL MCH (28.0-34.0) pg MCHC (30.0-36.0) g/dL RDW (12.1-15.1) % Plt Count (130-400) 10^3/c mm MPV (7.4-10.4) fL Neut % (Auto) % Lymph % (Auto) % [place] % (Auto) % Eos % (Auto) % Baso % (Auto) % Neut # (Auto) (1.8-7.7) 10^3/u L Lymph # (Auto) (0.8-4.8) 10^3/u L [place] # (Auto) (0.2-0.9) 10^3/u L Eos # (Auto) (0.0-0.8) 10^3/u L Baso # (Auto) (0.0-0.1) 10^3/u L Nucleated RBC % (a uto) % Nucleated RBCs # /100WBC ESR (0-15) mm/hr Sodium 137 (136-145) mmol/L Potassium 4.4 (3.5-5.1) mmol/L Chloride 102 (98-107) mmol/L Carbon Dioxide 26 (22-29) mmol/L Anion Gap 13.4 (5-19) BUN 10 (6-20) mg/dL Creatinine 0.9 (0.5-0.9) mg/dL GFR Calculation 73.5 L (90-130) mL/min Glucose 79 (65-115) mg/dL Calculated Osmolal ity 282 L (285-295) mOsm/k g Calcium 9.4 (8.5-10.5) mg/dL Total Bilirubin 0.4 (0.15-1.2) mg/dL AST 14 (0-32) U/L ALT 17 (0-33) U/L Alkaline Phosphata se 64 (35-105) IU/L C-Reactive Protein 2.2 (0.0-4.9) mg/L Total Protein 7.2 (6.6-8.7) g/dL Albumin 4.7 (3.5-5.2) g/dL Globulin 2.5 (1.3-4.6) g/dL Urine Color Yellow (Yellow) Urine Appearance Sl hazy (CLEAR) Urine pH 5 (5-7) Ur Specific Gravit y 1.015 (1.005-1.030) Urine Protein Neg (Negative) Urine Glucose (UA) Norm (Normal) Urine Ketones Negative (Negative) Urine Blood Neg (Negative) Urine Nitrate Negative (Negative) Urine Bilirubin Neg (Negative) Urine Urobilinogen Norm (Negative) mg/dL Ur Leukocyte Gisela ase Negative (Negative) Urine RBC 0-4 H (0-2) /hpf Urine WBC 0-4 H (0-5) /hpf Ur Squamous Epith Cells Too numerous to c nt H (0-5) /hpf Amorphous Sediment Not Reportable Urine Bacteria 2+ H (NONE) /hpf Influenza Type A A g Negative (Negative) Influenza Type B A g Negative (Negative) SARS-CoV-2 Ag (Rap id) (Negative) COVID Results: SARS-CoV-2 Antigen (Rapid) Positive (Negative) H 03/08/20 14:54 03/08/20 Nasal/Oral Coronavirus 2019 PCR Negative 12/03/19 07:43 12/03/19 Discharge Plan Discharge Patient Disposition: Home Clinical Impression: COVID-19, Dizziness Condition: Stable Prescriptions: New Zofran 4 mg tablet 4 mg PO Q4H 5 Days Qty: 14 RF: 0 No Action rizatriptan [Maxalt] 10 mg tablet 10 mg PO DAILY PRN (Reason: Headache) RF: 0 lidocaine 1.8 % adhesive patch,medicated 1 patch topical DAILY Qty: 30 RF: 1 sucralfate [Carafate] 1 gram tablet 1 gm PO BID@0800,1900 RF: 0 diclofenac potassium 50 mg tablet 50 mg PO BID Qty: 14 RF: 0 Lamictal 200 mg tablet 200 mg PO BID@0800,2100 RF: 0 Klonopin 0.5 mg tablet 0.5 mg PO BID@0800,2100 RF: 0 Effexor XR 150 mg capsule,extended release 24hr 150 mg PO DAILY@0800 RF: 0 ciprofloxacin HCl 500 mg tablet 500 mg PO BID@0800,2100 RF: 0 Flomax 0.4 mg capsule 0.4 mg PO DAILY@0800 RF: 0 pantoprazole 40 mg tablet,delayed release (DR/EC) 40 mg PO DAILY@0800 RF: 0 mirtazapine 7.5 mg tablet 7.5 mg PO BEDTIME@2100 RF: 0 cyclobenzaprine 10 mg tablet 10 mg PO TID PRN (Reason: muscle spasm) Qty: 20 RF: 0 Discharge Orders: Discharge ED (Routine); Ordered 03/08/20 Ordered By: Malick Little Referrals: Era Yuen DO [Primary Care Provider] - Discharge Diet: Advance as tolerated and Clear Liquid Discharge Activity: Limit activity as instructed Patient Instructions: Viral Syndrome (ED), Near Syncope (ED), Dizziness (ED) Activity Restrictions/Additional Instructions: You will need to push fluids, drink lots and lots of fluids secondary to possibility of dehydration You will need to remain in quarantine, [facility] will be contacting you with further instructions, quarantine will last approximately 10 days May take Tylenol/ibuprofen as needed for pain/fever visitor services specialist will be contacting you with an appointment tomorrow for a follow-up, follow-up will be needed tomorrow via telemedicine. Return to the emergency department if you develop difficulty breathing, inability to catch her breath, or increased weakness Oxygen monitor will be provided, please return to the emergency department if you develop oxygen level less than 90% Coding Level of Care Code ED Geographic Information Systems Analyst for Chg Fwd Exam Comprehensive Documented by User: LUISA Magallon 03/09/20 17:02 HPI - COVID General: Chief Complaint: COVID symptoms Stated Complaint: fever, body aches, back pain, FELICIANO Time Seen by Provider: 03/08/20 13:25 COVID Results: SARS-CoV-2 Antigen (Rapid) Positive (Negative) H 03/08/20 14:54 03/08/20 Nasal/Oral Coronavirus 2019 PCR Negative 12/03/19 07:43 12/03/19 [facility]LY [facility] LAT[facility] ED PFS: Medical History Chronic post-traumatic stress disorder History of eating disorder Major depressive disorder, recurrent severe without psychotic features Nicotine dependence, cigarettes, uncomplicated Panic disorder Recurrent UTI Surgical History H/O ureter repair History of colonoscopy (~2015) History of esophagogastroduodenoscopy (EGD) (~11/2019) History of laparoscopic cholecystectomy Family History Mother Chronic kidney disease (CKD) Grandfather Cancer Kidney Social History Smoking and tobacco status: current every day smoker cigarettes Packs smoked per day: 1 Alcohol intake: never Marital status: Current occupational status: unemployed History of recent travel: No Course Vital Signs: Vital signs: Vital Signs Temperature 98.7 F 03/08/20 13:12 Pulse Rate 86 03/08/20 19:49 Respiratory Rate 18 03/08/20 19:49 Blood Pressure 116/85 03/08/20 19:49 Pulse Oximetry 99 03/08/20 19:49 MDM - COVID Lab Data: Labs: Lab Results 03/08/20 03/08/20 03/08/20 Range/Units 14:54 15:25 15:25 WBC 1.7 L (4.0-10.0) 10^3/ uL RBC 4.87 (4.1-5.3) 10^6/u L Hgb 15.2 (11.5-15.3) g/dL Hct 45.5 (37.0-47.0) % MCV 93.4 (81-99) fL MCH 31.2 (28.0-34.0) pg MCHC 33.4 (30.0-36.0) g/dL RDW 11.8 L (12.1-15.1) % Plt Count 197 (130-400) 10^3/c mm MPV 9.6 (7.4-10.4) fL Neut % (Auto) 35.5 % Lymph % (Auto) 45.3 % [place] % (Auto) 15.1 % Eos % (Auto) 2.9 % Baso % (Auto) 1.2 % Neut # (Auto) 0.61 L* (1.8-7.7) 10^3/u L Lymph # (Auto) 0.8 (0.8-4.8) 10^3/u L [place] # (Auto) 0.3 (0.2-0.9) 10^3/u L Eos # (Auto) 0.1 (0.0-0.8) 10^3/u L Baso # (Auto) 0.0 (0.0-0.1) 10^3/u L Nucleated RBC % (a uto) 0 % Nucleated RBCs # 0.0 /100WBC ESR 4 (0-15) mm/hr Sodium (136-145) mmol/L Potassium (3.5-5.1) mmol/L Chloride (98-107) mmol/L Carbon Dioxide (22-29) mmol/L Anion Gap (5-19) BUN (6-20) mg/dL Creatinine (0.5-0.9) mg/dL GFR Calculation (90-130) mL/min Glucose (65-115) mg/dL Calculated Osmolal ity (285-295) mOsm/k g Calcium (8.5-10.5) mg/dL Total Bilirubin (0.15-1.2) mg/dL AST (0-32) U/L ALT (0-33) U/L Alkaline Phosphata se (35-105) IU/L C-Reactive Protein (0.0-4.9) mg/L Total Protein (6.6-8.7) g/dL Albumin (3.5-5.2) g/dL Globulin (1.3-4.6) g/dL Urine Color (Yellow) Urine Appearance (CLEAR) Urine pH (5-7) Ur Specific Gravit y (1.005-1.030) Urine Protein (Negative) Urine Glucose (UA) (Normal) Urine Ketones (Negative) Urine Blood (Negative) Urine Nitrate (Negative) Urine Bilirubin (Negative) Urine Urobilinogen (Negative) mg/dL Ur Leukocyte Gisela ase (Negative) Urine RBC (0-2) /hpf Urine WBC (0-5) /hpf Ur Squamous Epith Cells (0-5) /hpf Amorphous Sediment Urine Bacteria (NONE) /hpf Influenza Type A A g (Negative) Influenza Type B A g (Negative) SARS-CoV-2 Ag (Rap id) Positive H (Negative) 03/08/20 03/08/20 03/08/20 Range/Units 15:25 15:25 17:40 WBC (4.0-10.0) 10^3/ uL RBC (4.1-5.3) 10^6/u L Hgb (11.5-15.3) g/dL Hct (37.0-47.0) % MCV (81-99) fL MCH (28.0-34.0) pg MCHC (30.0-36.0) g/dL RDW (12.1-15.1) % Plt Count (130-400) 10^3/c mm MPV (7.4-10.4) fL Neut % (Auto) % Lymph % (Auto) % [place] % (Auto) % Eos % (Auto) % Baso % (Auto) % Neut # (Auto) (1.8-7.7) 10^3/u L Lymph # (Auto) (0.8-4.8) 10^3/u L [place] # (Auto) (0.2-0.9) 10^3/u L Eos # (Auto) (0.0-0.8) 10^3/u L Baso # (Auto) (0.0-0.1) 10^3/u L Nucleated RBC % (a uto) % Nucleated RBCs # /100WBC ESR (0-15) mm/hr Sodium 137 (136-145) mmol/L Potassium 4.4 (3.5-5.1) mmol/L Chloride 102 (98-107) mmol/L Carbon Dioxide 26 (22-29) mmol/L Anion Gap 13.4 (5-19) BUN 10 (6-20) mg/dL Creatinine 0.9 (0.5-0.9) mg/dL GFR Calculation 73.5 L (90-130) mL/min Glucose 79 (65-115) mg/dL Calculated Osmolal ity 282 L (285-295) mOsm/k g Calcium 9.4 (8.5-10.5) mg/dL Total Bilirubin 0.4 (0.15-1.2) mg/dL AST 14 (0-32) U/L ALT 17 (0-33) U/L Alkaline Phosphata se 64 (35-105) IU/L C-Reactive Protein 2.2 (0.0-4.9) mg/L Total Protein 7.2 (6.6-8.7) g/dL Albumin 4.7 (3.5-5.2) g/dL Globulin 2.5 (1.3-4.6) g/dL Urine Color Yellow (Yellow) Urine Appearance Sl hazy (CLEAR) Urine pH 5 (5-7) Ur Specific Gravit y 1.015 (1.005-1.030) Urine Protein Neg (Negative) Urine Glucose (UA) Norm (Normal) Urine Ketones Negative (Negative) Urine Blood Neg (Negative) Urine Nitrate Negative (Negative) Urine Bilirubin Neg (Negative) Urine Urobilinogen Norm (Negative) mg/dL Ur Leukocyte Gisela ase Negative (Negative) Urine RBC 0-4 H (0-2) /hpf Urine WBC 0-4 H (0-5) /hpf Ur Squamous Epith Cells Too numerous to c nt H (0-5) /hpf Amorphous Sediment Not Reportable Urine Bacteria 2+ H (NONE) /hpf Influenza Type A A g Negative (Negative) Influenza Type B A g Negative (Negative) SARS-CoV-2 Ag (Rap id) (Negative) COVID Results: SARS-CoV-2 Antigen (Rapid) Positive (Negative) H 03/08/20 14:54 03/08/20 Nasal/Oral Coronavirus 2019 PCR Negative 12/03/19 07:43 12/03/19 Discharge Plan Discharge Patient Disposition: Home Clinical Impression: COVID-19, Dizziness Condition: Stable Prescriptions: New Zofran 4 mg tablet 4 mg PO Q4H 5 Days Qty: 14 RF: 0 No Action rizatriptan [Maxalt] 10 mg tablet 10 mg PO DAILY PRN (Reason: Headache) RF: 0 lidocaine 1.8 % adhesive patch,medicated 1 patch topical DAILY Qty: 30 RF: 1 sucralfate [Carafate] 1 gram tablet 1 gm PO BID@0800,1900 RF: 0 diclofenac potassium 50 mg tablet 50 mg PO BID Qty: 14 RF: 0 Lamictal 200 mg tablet 200 mg PO BID@0800,2100 RF: 0 Klonopin 0.5 mg tablet 0.5 mg PO BID@0800,2100 RF: 0 Effexor XR 150 mg capsule,extended release 24hr 150 mg PO DAILY@0800 RF: 0 ciprofloxacin HCl 500 mg tablet 500 mg PO BID@0800,2100 RF: 0 Flomax 0.4 mg capsule 0.4 mg PO DAILY@0800 RF: 0 pantoprazole 40 mg tablet,delayed release (DR/EC) 40 mg PO DAILY@0800 RF: 0 mirtazapine 7.5 mg tablet 7.5 mg PO BEDTIME@2100 RF: 0 cyclobenzaprine 10 mg tablet 10 mg PO TID PRN (Reason: muscle spasm) Qty: 20 RF: 0 Discharge Orders: Discharge ED (Routine); Ordered 03/08/20 Ordered By: Malick Little Referrals: Era Yuen DO [Primary Care Provider] - Discharge Diet: Advance as tolerated and Clear Liquid Discharge Activity: Limit activity as instructed Patient Instructions: Viral Syndrome (ED), Near Syncope (ED), Dizziness (ED) Activity Restrictions/Additional Instructions: You will need to push fluids, drink lots and lots of fluids secondary to possibility of dehydration You will need to remain in quarantine, [facility] will be contacting you with further instructions, quarantine will last approximately 10 days May take Tylenol/ibuprofen as needed for pain/fever visitor services specialist will be contacting you with an appointment tomorrow for a follow-up, follow-up will be needed tomorrow via telemedicine. Return to the emergency department if you develop difficulty breathing, inability to catch her breath, or increased weakness Oxygen monitor will be provided, please return to the emergency department if you develop oxygen level less than 90% Coding Level of Care Code ED Geographic Information Systems Analyst for Treasure Arnold Exam Comprehensive
[2020-03-08] MEDS: ondansetron 2 mg/ML SDV 2 mL 4 MG IVP (15:08)
[2020-03-08 15:32] LABS: SARS Covid-2 Antigen Positive (Negative)
[2020-03-08 15:37] LABS: Basophils % 1.2 %; Eosinophils # 0.1 10^3/uL (0.0-0.8); Eosinophils % 2.9 %; Hematocrit 45.5 % (37.0-47.0); Hemoglobin 15.2 g/dL (11.5-15.3); Lymphocytes # 0.8 10^3/uL (0.8-4.8); Lymphocytes % 45.3 %; Mean Corpuscular HGB Conc 33.4 g/dL (30.0-36.0); Mean Corpuscular Hemoglobin 31.2 pg (28.0-34.0); Mean Corpuscular Volume 93.4 fL (81-99); Mean Platelet Volume 9.6 fL (7.4-10.4); Monocytes # 0.3 10^3/uL (0.2-0.9); Monocytes % 15.1 %; Neutrophils % 35.5 %; Nucleated Red Blood Cells % 0 %; Platelet Count 197 10^3/cmm (130-400); Red Blood Count 4.87 10^6/uL (4.1-5.3); Red Cell Distribution Width 11.8 % (12.1-15.1); White Blood Count 1.7 10^3/uL (4.0-10.0)
[2020-03-08 15:46] LABS: Neutrophils # 0.61 10^3/uL (1.8-7.7)
[2020-03-08 16:12] LABS: Alanine Aminotransferase 17 U/L (0-33); Albumin Level 4.7 g/dL (3.5-5.2); Alkaline Phosphatase 64 IU/L (35-105); Anion Gap 13.4 (5-19); Aspartate Amino Transferase 14 U/L (0-32); Blood Urea Nitrogen 10 mg/dL (6-20); C Reactive Protein 2.2 mg/L (0.0-4.9); Calcium 9.4 mg/dL (8.5-10.5); Carbon Dioxide 26 mmol/L (22-29); Chloride 102 mmol/L (98-107); Globulin 2.5 g/dL (1.3-4.6); Glomerular Filtration Rate 73.5 mL/min (90-130); Glucose 79 mg/dL (65-115); Osmolality Calculated 282 mOsm/kg (285-295); Potassium 4.4 mmol/L (3.5-5.1); Sodium 137 mmol/L (136-145); Total Bilirubin 0.4 mg/dL (0.15-1.2); Total Protein 7.2 g/dL (6.6-8.7)
[2020-03-08 16:21] LABS: Influenza A by IFA Negative (Negative); Influenza B by IFA Negative (Negative)
--- NOTE | 2020-03-08 17:11 | XRR_ITS ---
PROCEDURE INFORMATION: Exam: XR Left Shoulder Exam date and time: 03/08/2020 5:13 PM Age: 29 years old Clinical indication: Injury or trauma; Fall; Blunt trauma (contusions or hematomas); Shoulder; Right; Additional info: Left shoulder pain TECHNIQUE: Imaging protocol: XR Left shoulder. Views: 2 or more views. COMPARISON: No relevant prior studies available. FINDINGS: Bones/joints: Normal. Soft tissues: Normal. XR/XR shoulder LT min 2V* [id number] IMPRESSION: No acute findings.
--- NOTE | 2020-03-08 17:11 | CTR_ITS ---
PROCEDURE INFORMATION: Exam: CT Head Without Contrast Exam date and time: 03/08/2020 5:15 PM Age: 29 years old Clinical indication: Injury or trauma; Fall; Blunt trauma (contusions or hematomas); Dizziness; Additional info: Fall, dizziness TECHNIQUE: Imaging protocol: Computed tomography of the head without contrast. Radiation optimization: All CT scans at this facility use at least one of these dose optimization techniques: automated exposure control; mA and/or kV adjustment per patient size (includes targeted exams where dose is matched to clinical indication); or iterative reconstruction. COMPARISON: CT head wo con* [id number] 01/26/2018 10:41 PM RADIATION DOSE METRICS: Total DLP (mGy-cm): 749.68 FINDINGS: Brain: Normal. No hemorrhage. Unremarkable white matter. No mass effect. Cerebral ventricles: No ventriculomegaly. Bones/joints: Unremarkable. No acute fracture. Paranasal sinuses: Visualized sinuses are unremarkable. No fluid levels. Mastoid air cells: Visualized mastoid air cells are well aerated. Soft tissues: Unremarkable. CT/CT head wo con* [id number] IMPRESSION: No acute intracranial abnormality. No change from previous. Radiation Dose CTDIVOL = (mGy): DLP = 749.68 (mGy-cm)
[2020-03-08 17:12] LABS: Erythrocyte Sedimentation Rate 4 mm/hr (0-15)
--- NOTE | 2020-03-08 17:15 | PC.NURSE ---
patient was taking off her jacket with the help of the pharmaceutical tech patient stated she got dizzy and slid off the bed tech asked if she was okay and patient stated that she was fine and nothing hurt later mariangel went in and patient stated that her head hurt and she hurt her shoulder
[2020-03-08 17:30] VITALS: BP 115/81; BP 128/77; BP 128/85; PULSE 110; PULSE 82; PULSE 90
[2020-03-08] MEDS: sodium chloride 0.9% 1,000 ML 999 ML IV (17:33)
[2020-03-08 18:36] LABS: Glucose Urine UA Norm (Normal); Ketones Urine Negative (Negative); Protein Urine Neg (Negative); Specific Gravity, Urine 1.015 (1.005-1.030); Urine Appearance SL Hazy (CLEAR); Urine Color Yellow (Yellow); pH Urine 5 (5-7)
[2020-03-08 18:37] LABS: Add Urine Microscopic? YES; Bilirubin Urine Neg (Negative); Blood Urine Neg (Negative); Leukocyte Esterase Urine Negative (Negative); Nitrate Urine Negative (Negative); Urobilinogen Urine Norm (Negative)
[2020-03-08 18:38] LABS: Bacteria Urine 2+ /hpf; RBC Urine 0-4 /hpf (0-2); Squamous Epithelial Cell Urine TOO NUMEROUS TO CNT /hpf (0-5); WBC Urine 0-4 /hpf (0-5)
[2020-03-08 18:39] LABS: Add Urine Culture? No
[2020-03-08 19:11] VITALS: BP 135/89; PULSE 90; RESP 17; O2SAT 99
[2020-03-08 19:49] VITALS: BP 116/85; PULSE 86; RESP 18; O2SAT 99
--- NOTE | 2020-03-09 09:19 | DCPLANNER ---
senior restaurant manager had message to schedule a follow up tele health visit for patient. senior restaurant manager called [facility], a follow up appointment was scheduled for , March 09, 2020 at 10:[address] Yuen. Clinic will call patient with appointment information.
--- NOTE | 2020-03-09 09:24 | DCPLANNER ---
Addendum entered by Lary Sibley 03/09/20 09:29: this note was made on wrong patient Original Note: fleet manager had message to schedule a follow up appointment for patient with ortho. fleet manager called the ortho clinic, spoke with Melissa, gave clinic patients information. fleet manager was told that patients information would be printed and reviewed. Clinic will call patient with appointment information.
== END 2020-03-08 19:49 | disposition home or self-care (01) ==
PROVIDERS: Nurse Practitioner Family; Emergency Provider Nurse Practitioner Family; PCP Family Medicine
DX: U07.1 COVID-19 (principal); F17.210 Nicotine dependence, cigarettes, uncomplicated
CPT/HCPCS: 12345; 70450; 73030; 80053; 81001; 85025; 85651; 86140; 87040; 87426; 87804; 96361; 96374; 96375; 99282; 99283; J0131; J2405; J7030

== ENCOUNTER 2020-03-13 17:24 | Emergency (ER) | payer MEDICAID, SELFPAY ==
[2020-03-13 17:36] VITALS: BP 121/81; PULSE 104; RESP 16; TEMP 36.3; O2SAT 99; BMI 27.4
--- NOTE | 2020-03-13 19:52 | ED_ITS ---
HPI - Female Genitourinary General: Chief complaint: Urogenital-Female Stated complaint: UNABLE TO URINATE, COVID + Time Seen by Provider: 03/13/20 19:49 History of Present Illness: HPI Narrative: Patient is a 29-year-old female who comes to the ED with anuria. Patient tested positive for COVID-19 on March 08[address] Patient sees Dr. Jeff and recently had an appointment with him on February 23 she was diagnosed with a UTI and put on ciprofloxacin. Today she urinated a little bit in the morning and then was able to void some this evening. Patient says she has had this acute urinary retention once before when being treated for a bad UTI she developed urinary retention and she had to get a Vasquez catheter placed. She has drink coffee and multiple bottles of water and feels like her bladder is full and is uncomfortable and she needs to urinate but is unable to. Patient also has some Covid symptoms of fevers and chills and has a headache. Associated symptoms: Reports abdominal pain (Lower abdominal pain over bladder.) and headache(s); Deny nausea Date of Last Menstrual Period: 02/16/20 Review of Systems Const: Reports: fever(s) and chills; Denies: fatigue Eyes: Denies: change in vision or eye discomfort ENMT: Denies: throat pain, odynophagia, nasal discharge or nasal congestion Card: Denies: chest pain, palpitations, edema, swelling of feet/ankles, dyspnea on exertion or orthopnea Resp: Denies: dyspnea, productive cough or non-productive cough GI: Reports: abdominal pain (Lower abdominal pain over bladder.); Denies: nausea, vomiting, diarrhea, constipation or hematochezia : Reports: difficulty voiding and oliguria; Denies: flank pain, dysuria or hematuria Musc: Denies: neck pain, back pain or extremity swelling Skin/Breast: Denies: rash or new lesions Neuro: Reports: headache(s); Denies: numbness in extremities or weakness in extremities PFS ED PFSH: Medical History Chronic post-traumatic stress disorder History of eating disorder Major depressive disorder, recurrent severe without psychotic features Nicotine dependence, cigarettes, uncomplicated Panic disorder Recurrent UTI Surgical History H/O ureter repair History of colonoscopy (~2015) History of esophagogastroduodenoscopy (EGD) (~11/2019) History of laparoscopic cholecystectomy Family History Mother Chronic kidney disease (CKD) Grandfather Cancer Kidney Social History Smoking and tobacco status: current every day smoker cigarettes Packs smoked per day: 1 Alcohol intake: never Marital status: Current occupational status: unemployed History of recent travel: No Female Reproductive History: Date of last menstrual period: 02/16/20 Physical Exam Const: COMMON NORMALS: patient oriented x3 and alert GENERAL APPEARANCE: cooperative; not comfortable (Patient appeared uncomfortable due to pain.) HENMT: COMMON NORMALS: normocephalic HEAD & SCALP: normocephalic MOUTH: Normal oral and palatal mucosa present THROAT: posterior oropharynx normal and uvula midline Neck/C-Spine: COMMON NORMALS: supple GENERAL: Yes normal visual inspection Resp: COMMON NORMALS: normal respiratory effort, No retractions, No use of accessory muscles and clear to auscultation bilaterally AUSCULTATION: clear to auscultation bilaterally Cardio: COMMON NORMALS: regular rate, regular rhythm, S1 normal heart sound present, S2 normal heart sound present, No gallops present (Cardio), No clicks present (Cardio), No murmurs present (Cardio) and Peripheral pulses 2+ throughout RATE: regular rate RHYTHM: regular rhythm HEART SOUNDS: S1 normal heart sound present and S2 normal heart sound present PERIPHERAL PULSES: Peripheral pulses 2+ throughout GI: COMMON NORMALS: Normal to inspection, nondistended, normoactive bowel sounds present, Soft to palpation, non-tender and no masses PALPATION: Yes Soft to palpation and Yes Bladder palpation abnormal : BLADDER/KIDNEY EXAM: Yes Bladder palpation abnormal Bladder abnormal details: tender and distended midway to the umbilicus and Yes CVA tenderness bilateral (Right right side seem more tender than left.) Extremity: COMMON NORMALS: normal to inspection and no pedal edema Neuro: COMMON NORMALS: patient oriented x3 and moves all extremities SENSORIUM/ORIENTATION: Yes alert Skin: GENERAL SKIN EXAM: dry skin Course ED course: Nurse tech performed bladder scan on patient and it showed 725 mL in the bladder. I told the nurse to insert Vasquez catheter and placed order. Patient's abdominal pain and discomfort improved after getting Vasquez catheter placed. Vital Signs: Vital signs: Vital Signs Temperature 97.8 F 03/13/20 23:02 Pulse Rate 86 03/13/20 23:02 Respiratory Rate 16 03/13/20 23:02 Blood Pressure 112/82 03/13/20 23:02 Pulse Oximetry 97 03/13/20 23:02 MDM - Female MDM Narrative: Medical decision making narrative: Patient is a 29-year-old female comes to the ED with acute urinary retention. She has had this issue once before and saw Dr. Jeff on February 23 and was diagnosed with UTI and is currently on ciprofloxacin to treat. Patient's bladder was tender upon palpation was distended. Bladder scan was performed and over 725 mL were identified in bladder. Patient was given a Vasquez catheter and her symptoms improved. White blood cell count 2.9 and the rest of the CBC and CMP were unremarkable. Urinalysis was unremarkable. I placed an order with case management for patient be referred to Dr. Jeff. Patient was discharged with Vasquez catheter in place and told that case management will contact her in the next several days set up an appointment with Dr. Jeff. She was instructed on catheter care by nurse. She was told to continue taking her previously prescribed ciprofloxacin. Return to ED precautions given. Patient understood agree with plan. Lab Data: Attestation: I reviewed the patient's lab results. Labs: Lab Results 03/13/20 03/13/20 03/13/20 Range/Units 21:05 21:34 21:34 WBC 2.9 L (4.0-10.0) 10^3/ uL RBC 4.55 (4.1-5.3) 10^6/u L Hgb 14.3 (11.5-15.3) g/dL Hct 43.1 (37.0-47.0) % MCV 94.7 (81-99) fL MCH 31.4 (28.0-34.0) pg MCHC 33.2 (30.0-36.0) g/dL RDW 12.0 L (12.1-15.1) % Plt Count 188 (130-400) 10^3/c mm MPV 9.3 (7.4-10.4) fL Neut % (Auto) 46.1 % Lymph % (Auto) 43.0 % Troup % (Auto) 6.8 % Eos % (Auto) 3.8 % Baso % (Auto) 0.3 % Neut # (Auto) 1.35 L (1.8-7.7) 10^3/u L Lymph # (Auto) 1.3 (0.8-4.8) 10^3/u L Troup # (Auto) 0.2 (0.2-0.9) 10^3/u L Eos # (Auto) 0.1 (0.0-0.8) 10^3/u L Baso # (Auto) 0.0 (0.0-0.1) 10^3/u L Nucleated RBC % (a uto) 0 % Nucleated RBCs # 0.0 /100WBC Sodium 137 (136-145) mmol/L Potassium 4.1 (3.5-5.1) mmol/L Chloride 102 (98-107) mmol/L Carbon Dioxide 28 (22-29) mmol/L Anion Gap 11.1 (5-19) BUN 8 (6-20) mg/dL Creatinine 0.8 (0.5-0.9) mg/dL GFR Calculation 84.2 L (90-130) mL/min Glucose 93 (65-115) mg/dL Calculated Osmolal ity 282 L (285-295) mOsm/k g Calcium 9.2 (8.5-10.5) mg/dL HCG, Qual (Negative) Urine Color Yellow (Yellow) Urine Appearance Clear (CLEAR) Urine pH 6 (5-7) Ur Specific Gravit y 1.010 (1.005-1.030) Urine Protein Neg (Negative) Urine Glucose (UA) Norm (Normal) Urine Ketones Negative (Negative) Urine Blood Neg (Negative) Urine Nitrate Negative (Negative) Urine Bilirubin Neg (Negative) Urine Urobilinogen Norm (Negative) mg/dL Ur Leukocyte Gisela ase Negative (Negative) 03/13/20 Range/Units 21:34 WBC (4.0-10.0) 10^3/ uL RBC (4.1-5.3) 10^6/u L Hgb (11.5-15.3) g/dL Hct (37.0-47.0) % MCV (81-99) fL MCH (28.0-34.0) pg MCHC (30.0-36.0) g/dL RDW (12.1-15.1) % Plt Count (130-400) 10^3/c mm MPV (7.4-10.4) fL Neut % (Auto) % Lymph % (Auto) % Troup % (Auto) % Eos % (Auto) % Baso % (Auto) % Neut # (Auto) (1.8-7.7) 10^3/u L Lymph # (Auto) (0.8-4.8) 10^3/u L Troup # (Auto) (0.2-0.9) 10^3/u L Eos # (Auto) (0.0-0.8) 10^3/u L Baso # (Auto) (0.0-0.1) 10^3/u L Nucleated RBC % (a uto) % Nucleated RBCs # /100WBC Sodium (136-145) mmol/L Potassium (3.5-5.1) mmol/L Chloride (98-107) mmol/L Carbon Dioxide (22-29) mmol/L Anion Gap (5-19) BUN (6-20) mg/dL Creatinine (0.5-0.9) mg/dL GFR Calculation (90-130) mL/min Glucose (65-115) mg/dL Calculated Osmolal ity (285-295) mOsm/k g Calcium (8.5-10.5) mg/dL HCG, Qual Negative (Negative) Urine Color (Yellow) Urine Appearance (CLEAR) Urine pH (5-7) Ur Specific Gravit y (1.005-1.030) Urine Protein (Negative) Urine Glucose (UA) (Normal) Urine Ketones (Negative) Urine Blood (Negative) Urine Nitrate (Negative) Urine Bilirubin (Negative) Urine Urobilinogen (Negative) mg/dL Ur Leukocyte Gisela ase (Negative) Discharge Plan Discharge Patient Disposition: Home Clinical Impression: Acute urinary retention Condition: Stable Prescriptions: No Action rizatriptan [Maxalt] 10 mg tablet 10 mg PO DAILY PRN (Reason: Headache) RF: 0 lidocaine 1.8 % adhesive patch,medicated 1 patch topical DAILY Qty: 30 RF: 1 sucralfate [Carafate] 1 gram tablet 1 gm PO BID@0800,1900 RF: 0 lamotrigine [Lamictal] 200 mg tablet 200 mg PO BID@0800,2100 RF: 0 clonazepam [Klonopin] 0.5 mg tablet 0.5 mg PO BID@0800,2100 RF: 0 venlafaxine [Effexor XR] 150 mg capsule,extended release 24hr 150 mg PO DAILY@0800 RF: 0 ciprofloxacin HCl 500 mg tablet 500 mg PO BID@0800,2100 RF: 0 tamsulosin [Flomax] 0.4 mg capsule 0.4 mg PO DAILY@0800 RF: 0 pantoprazole 40 mg tablet,delayed release (DR/EC) 40 mg PO DAILY@0800 RF: 0 mirtazapine 7.5 mg tablet 7.5 mg PO BEDTIME@2100 RF: 0 cyclobenzaprine 10 mg tablet 10 mg PO TID PRN (Reason: muscle spasm) Qty: 20 RF: 0 Discharge Orders: Discharge ED (Routine); Ordered 03/13/20 Ordered By: Jose Jane Referrals: Era Yuen DO [Primary Care Provider] - Discharge Diet: Regular Discharge Activity: Resume usual activity Patient Instructions: Vasquez Catheter Care, Vasquez Catheter Placement and Care (ED), Acute Urinary Retention in Women (ED) Activity Restrictions/Additional Instructions: Follow-up with medical provider as directed. Case management should be contacting you in the next several days to set up an appointment with Dr. Jeff. Nurse given instructions on Vasquez catheter care discharge. Continue taking your prescribed ciprofloxacin for UTI. Return to the ER or your medical provider if condition worsens. Please read and understand discharge instructions. If any questions, please ask. 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
[2020-03-13 20:41] VITALS: BP 114/65; PULSE 84; RESP 16; O2SAT 100
[2020-03-13 21:17] LABS: Add Urine Microscopic? NO
[2020-03-13] MEDS: HYDROcodone-acetaminophen 7.5-325 mg Tablet 1 TAB PO (21:21)
[2020-03-13 21:22] LABS: Bilirubin Urine Neg (Negative); Blood Urine Neg (Negative); Glucose Urine UA Norm (Normal); Ketones Urine Negative (Negative); Leukocyte Esterase Urine Negative (Negative); Nitrate Urine Negative (Negative); Protein Urine Neg (Negative); Urine Appearance Clear (CLEAR); Urine Color Yellow (Yellow); Urobilinogen Urine Norm (Negative); pH Urine 6 (5-7)
[2020-03-13 21:30] VITALS: BP 112/74; PULSE 98; RESP 17; O2SAT 100
[2020-03-13 21:38] LABS: Basophils % 0.3 %; Eosinophils # 0.1 10^3/uL (0.0-0.8); Eosinophils % 3.8 %; Hematocrit 43.1 % (37.0-47.0); Hemoglobin 14.3 g/dL (11.5-15.3); Lymphocytes # 1.3 10^3/uL (0.8-4.8); Mean Corpuscular HGB Conc 33.2 g/dL (30.0-36.0); Mean Corpuscular Hemoglobin 31.4 pg (28.0-34.0); Mean Corpuscular Volume 94.7 fL (81-99); Mean Platelet Volume 9.3 fL (7.4-10.4); Monocytes # 0.2 10^3/uL (0.2-0.9); Monocytes % 6.8 %; Neutrophils # 1.35 10^3/uL (1.8-7.7); Neutrophils % 46.1 %; Nucleated Red Blood Cells % 0 %; Platelet Count 188 10^3/cmm (130-400); Red Blood Count 4.55 10^6/uL (4.1-5.3); White Blood Count 2.9 10^3/uL (4.0-10.0)
[2020-03-13 21:54] LABS: HCG, Serum Qual Negative (Negative)
[2020-03-13 22:01] LABS: Anion Gap 11.1 (5-19); Blood Urea Nitrogen 8 mg/dL (6-20); Calcium 9.2 mg/dL (8.5-10.5); Carbon Dioxide 28 mmol/L (22-29); Chloride 102 mmol/L (98-107); Glomerular Filtration Rate 84.2 mL/min (90-130); Glucose 93 mg/dL (65-115); Osmolality Calculated 282 mOsm/kg (285-295); Potassium 4.1 mmol/L (3.5-5.1); Sodium 137 mmol/L (136-145)
[2020-03-13 23:02] VITALS: BP 112/82; PULSE 86; RESP 16; TEMP 36.6; O2SAT 97
--- NOTE | 2020-03-14 10:06 | DCPLANNER ---
auto parts manager had message to schedule a followup appointment for patient with Dr. Jeff. auto parts manager called the office of Dr. Jeff, spoke with Griselda. auto parts manager gave clinic patients information, case management manager was told that patients information would be printed and reviewed. Clinic will call patient with appointment information.
--- NOTE | 2020-03-16 14:39 | DCPLANNER ---
Patient has a follow up appointment scheduled for Friday, April 03, 2020 at 11:[address] Jeff. Clinic will call patient with appointment information.
--- NOTE | 2020-04-11 07:31 | DCPLANNER ---
Patient had a follow up appointment scheduled for 04.03.[address] Jeff - patient did attend appointment.
--- NOTE | 2020-04-13 13:54 | DCPLANNER ---
Patient had a follow up appointment scheduled for 03.09.20 - appointment was cancelled.
== END 2020-03-13 23:02 | disposition home or self-care (01) ==
PROVIDERS: Family Medicine; Emergency Provider Physician Assistant; PCP Family Medicine
DX: R33.9 Retention of urine, unspecified (principal); Z87.440 Personal history of urinary (tract) infections; F17.210 Nicotine dependence, cigarettes, uncomplicated
CPT/HCPCS: 12345; 51702; 51798; 80048; 81003; 84703; 85025; 99282; 99283

== ENCOUNTER → 2020-03-23 09:15 | Outpatient (BNVA) | payer MEDICAID, SELFPAY | PROVIDERS: PCP Family Medicine; Visit Provider Nurse Practitioner Psychiatric/Mental Health | DX: F33.2 Major depressive disorder, recurrent severe without psychotic features (principal); F41.0 Panic disorder [episodic paroxysmal anxiety]; F43.12 Post-traumatic stress disorder, chronic; F17.210 Nicotine dependence, cigarettes, uncomplicated; Z86.59 Personal history of other mental and behavioral disorders | CPT/HCPCS: 99214 ==

== ENCOUNTER 2020-03-28 06:00 | Outpatient (CLI) | payer MEDICAID, SELFPAY | END 2020-03-28 06:01 | disposition home or self-care (01) | LOC: LAB 10-26 12:30 | PROVIDERS: Visit Provider Family Medicine | DX: Z13.6 Encounter for screening for cardiovascular disorders (principal); D70.3 Neutropenia due to infection | CPT/HCPCS: 85025 ==

== ENCOUNTER → 2020-04-19 07:53 | Outpatient (BNVA) | payer MEDICAID, SELFPAY | PROVIDERS: PCP Family Medicine; Visit Provider Nurse Practitioner Psychiatric/Mental Health | DX: F33.2 Major depressive disorder, recurrent severe without psychotic features (principal); F41.0 Panic disorder [episodic paroxysmal anxiety]; F43.12 Post-traumatic stress disorder, chronic; F17.210 Nicotine dependence, cigarettes, uncomplicated; Z86.59 Personal history of other mental and behavioral disorders | CPT/HCPCS: 99214 ==

== ENCOUNTER 2020-05-02 09:06 | Outpatient (CLI) | payer MEDICAID, SELFPAY ==
--- NOTE | 2020-05-02 09:45 | MR_ITS ---
WS: [id number] MRI BRAIN WITH AND WITHOUT CONTRAST HISTORY: MIGRAINE HEADACHES COMPARISON: 08/06/[address] 03/08/2020 TECHNIQUE: Multiplanar imaging performed through the brain with MultiHance 16 ml's IV. No acute infarcts are seen. Watkins-white matter differentiation is well preserved. No susceptibility artifacts or prior lacunar infarcts. Ventricles and extra-axial spaces are normal. Clivus and pituitary gland are normal. Visualized posterior fossa and brainstem are also normal. No enhancing masses. There is a small venous angioma towards the RIGHT frontal vertex. No areas of he morrhage. Dural venous sinuses are normal. Paranasal sinuses: Well aerated with no significant disease. Mastoid air cells: Normal. Calvarium and scalp: Normal. MR/MR head wo/w con [id number] IMPRESSION: 1. No acute infarct or masses. 2. RIGHT frontal vertex venous angioma.
[2020-05-02] MEDS: gadobenate dimeglumine 20 mL vial IV (10:39)
== END 2020-05-02 09:07 | disposition home or self-care (01) ==
LOC: RADWPI 09:09
PROVIDERS: PCP Family Medicine; Visit Provider Family Medicine
DX: G43.009 Migraine without aura, not intractable, without status migrainosus (principal); Q28.3 Other malformations of cerebral vessels
CPT/HCPCS: 70553; A9577

== ENCOUNTER → 2020-05-09 08:58 | Outpatient (BNVA) | payer MEDICAID, SELFPAY | PROVIDERS: PCP Family Medicine; Visit Provider Counselor Professional | DX: F33.2 Major depressive disorder, recurrent severe without psychotic features (principal); F43.12 Post-traumatic stress disorder, chronic; F41.0 Panic disorder [episodic paroxysmal anxiety] | CPT/HCPCS: 90834 ==

== ENCOUNTER → 2020-05-12 08:01 | Outpatient (BNVA) | payer MEDICAID, SELFPAY | PROVIDERS: PCP Family Medicine; Visit Provider Nurse Practitioner Psychiatric/Mental Health | DX: F33.2 Major depressive disorder, recurrent severe without psychotic features (principal); F41.0 Panic disorder [episodic paroxysmal anxiety]; F43.12 Post-traumatic stress disorder, chronic; F17.210 Nicotine dependence, cigarettes, uncomplicated; Z86.59 Personal history of other mental and behavioral disorders | CPT/HCPCS: 99214 ==

== ENCOUNTER → 2020-05-29 08:20 | Outpatient (BNVA) | payer MEDICAID, SELFPAY | PROVIDERS: PCP Family Medicine; Visit Provider Counselor Professional | DX: F33.2 Major depressive disorder, recurrent severe without psychotic features (principal); F43.12 Post-traumatic stress disorder, chronic; F41.0 Panic disorder [episodic paroxysmal anxiety] | CPT/HCPCS: 90834 ==

== ENCOUNTER → 2020-06-01 09:31 | Outpatient (BNVA) | payer MEDICAID, SELFPAY | PROVIDERS: PCP Family Medicine; Visit Provider Specialist | DX: G43.711 Chronic migraine without aura, intractable, with status migrainosus (principal); D18.02 Hemangioma of intracranial structures; M51.17 Intervertebral disc disorders with radiculopathy, lumbosacral region; F17.210 Nicotine dependence, cigarettes, uncomplicated | CPT/HCPCS: 99215 ==

== ENCOUNTER → 2020-06-16 09:14 | Outpatient (BNVA) | payer MEDICAID, SELFPAY | PROVIDERS: PCP Family Medicine; Visit Provider Nurse Practitioner Psychiatric/Mental Health | DX: F33.2 Major depressive disorder, recurrent severe without psychotic features (principal); F41.0 Panic disorder [episodic paroxysmal anxiety]; F43.12 Post-traumatic stress disorder, chronic; F17.210 Nicotine dependence, cigarettes, uncomplicated; Z86.59 Personal history of other mental and behavioral disorders | CPT/HCPCS: 99214 ==

== ENCOUNTER → 2020-06-22 09:34 | Outpatient (BNVA) | payer MEDICAID, SELFPAY | PROVIDERS: PCP Family Medicine; Visit Provider Counselor Professional | DX: F33.2 Major depressive disorder, recurrent severe without psychotic features (principal); F41.0 Panic disorder [episodic paroxysmal anxiety]; F43.12 Post-traumatic stress disorder, chronic | CPT/HCPCS: 90832 ==

== ENCOUNTER → 2020-07-28 08:35 | Outpatient (BNVA) | payer MEDICAID, SELFPAY | PROVIDERS: PCP Family Medicine; Visit Provider Nurse Practitioner Psychiatric/Mental Health | DX: F33.2 Major depressive disorder, recurrent severe without psychotic features (principal); F41.0 Panic disorder [episodic paroxysmal anxiety]; F43.12 Post-traumatic stress disorder, chronic; F17.210 Nicotine dependence, cigarettes, uncomplicated; Z86.59 Personal history of other mental and behavioral disorders | CPT/HCPCS: 99214 ==

== ENCOUNTER → 2020-08-10 12:20 | Outpatient (BNVA) | payer MEDICAID, SELFPAY | PROVIDERS: PCP Family Medicine; Visit Provider Specialist | DX: G43.711 Chronic migraine without aura, intractable, with status migrainosus (principal); D18.02 Hemangioma of intracranial structures; M51.17 Intervertebral disc disorders with radiculopathy, lumbosacral region; F17.210 Nicotine dependence, cigarettes, uncomplicated | CPT/HCPCS: G0463 ==

== ENCOUNTER → 2020-08-24 08:26 | Outpatient (BNVA) | payer MEDICAID, SELFPAY | PROVIDERS: PCP Family Medicine; Visit Provider Anesthesiology Pain Medicine | DX: G89.29 Other chronic pain (principal); M51.17 Intervertebral disc disorders with radiculopathy, lumbosacral region; M54.9 Dorsalgia, unspecified; M19.90 Unspecified osteoarthritis, unspecified site; Q76.49 Other congenital malformations of spine, not associated with scoliosis; F17.210 Nicotine dependence, cigarettes, uncomplicated; Z79.891 Long term (current) use of opiate analgesic | CPT/HCPCS: 99205 ==

== ENCOUNTER 2020-09-19 15:28 | Outpatient (RCR) | payer MEDICAID, SELFPAY | END 2020-10-07 23:59 | disposition home or self-care (01) | LOC: SPT 15:28 | PROVIDERS: PCP Family Medicine; Referring Provider Nurse Practitioner Family; Visit Provider Nurse Practitioner Family | DX: G89.29 Other chronic pain (principal); M54.5 Low back pain; Z98.1 Arthrodesis status; M51.36 Other intervertebral disc degeneration, lumbar region | CPT/HCPCS: 97032; 97110; 97161 ==

== ENCOUNTER 2020-10-08 06:00 | Outpatient (RCR) | payer MEDICAID, SELFPAY | END 2020-11-07 23:59 | disposition home or self-care (01) | LOC: SPT 06:00 | PROVIDERS: PCP Family Medicine; Referring Provider Nurse Practitioner Family; Visit Provider Nurse Practitioner Family | DX: M54.5 Low back pain (principal); G89.29 Other chronic pain; Z98.1 Arthrodesis status; M51.36 Other intervertebral disc degeneration, lumbar region | CPT/HCPCS: 97110 ==

== ENCOUNTER → 2020-10-12 07:21 | Outpatient (BNVA) | payer MEDICAID, SELFPAY | PROVIDERS: PCP Family Medicine; Visit Provider Counselor Professional | DX: F33.2 Major depressive disorder, recurrent severe without psychotic features (principal); F41.0 Panic disorder [episodic paroxysmal anxiety]; F31.2 Bipolar disorder, current episode manic severe with psychotic features; F17.210 Nicotine dependence, cigarettes, uncomplicated; Z86.59 Personal history of other mental and behavioral disorders | CPT/HCPCS: 90834 ==

== ENCOUNTER 2020-10-25 16:34 | Emergency (ER) | payer MEDICAID, SELFPAY ==
[2020-10-25 16:41] VITALS: BP 136/87; PULSE 100; RESP 19; TEMP 37.1; O2SAT 97
--- NOTE | 2020-10-25 16:43 | W.ED.DENTAL ---
HPI - Dental/Oral General: Chief complaint: Dental/Oral Stated complaint: dental/oral pain Time Seen by Provider: 10/25/20 16:43 Source: patient Mode of arrival: ambulatory Limitations: no limitations History of Present Illness: HPI Narrative: Patient is a 30-year-old female who presents to ED today with a complaint of left lower dental pain. Patient tells me she had a tooth extracted yesterday at a clinic in [place]. She states her pain is severe and she has noticed facial swelling. She states she was not sent home with antibiotics or anything for her discomfort. She has been using OTC Tylenol and Motrin without relief. MD Complaint: tooth pain Teeth map: 1. extracted tooth Onset (ago): day(s) Duration: constant Severity: severe Relieving factors: nothing Exacerbating factors: chewing Context: history of dental caries and poor dental care Associated symptoms: Reports no associated symptoms; Denies ear or mastoid pain, fever(s) or odynophagia Treatment prior to arrival: topical analgesic and oral analgesic Review of Systems Const: Denies: fever(s), chills, body aches, fatigue or malaise Eyes: Denies: change in vision or blurry vision ENMT: Reports: dental pain; Denies: throat pain, odynophagia, ear or mastoid pain, nasal discharge or nasal congestion Card: Denies: chest pain Resp: Denies: dyspnea GI: Denies: nausea or vomiting Musc: Denies: neck pain Skin/Breast: Denies: rash Neuro: Denies: headache(s) PFSH ED PFSH: Medical History Chronic post-traumatic stress disorder History of eating disorder Major depressive disorder, recurrent severe without psychotic features Nicotine dependence, cigarettes, uncomplicated Panic disorder Recurrent UTI Surgical History H/O ureter repair History of colonoscopy (~2015) History of esophagogastroduodenoscopy (EGD) (~11/2019) History of laparoscopic cholecystectomy Family History Mother Chronic kidney disease (CKD) Grandfather Cancer Kidney Social History (Reviewed 08/24/20 @ 08:34 by OSIEL Acosta Smoking and tobacco status: current every day smoker cigarettes Packs smoked per day: 1 Alcohol intake: never Marital status: Current occupational status: unemployed History of recent travel: No Female Reproductive History: Date of last menstrual period: 06/08/20 Physical Exam Const: COMMON NORMALS: no acute distress, average body habitus, patient oriented x3, no limitations, healthy appearing, alert and well nourished GENERAL APPEARANCE: cooperative HENMT: HEAD & SCALP: normal to inspection FACE & SINUS: other (swelling L mandibular region) TEETH & GINGIVA: Yes poor dentition and Yes teeth discoloration (secondary to smoking) TEETH & GINGIVA IMAGES: 1. extracted tooth; no abscess formation at this time Neck/C-Spine: GENERAL: No anterior neck swelling and No submandibular swelling Lymph: LYMPHATIC: no lymphadenopathy noted Resp: COMMON NORMALS: normal respiratory effort Neuro: COMMON NORMALS: patient oriented x3 and CN's II-XII intact bilaterally SENSORIUM/ORIENTATION: Yes alert Course Vital Signs: Vital signs: Vital Signs Temperature 98.7 F 10/25/20 16:58 Pulse Rate 88 10/25/20 16:58 Respiratory Rate 19 H 10/25/20 16:58 Blood Pressure 136/87 10/25/20 16:41 Pulse Oximetry 97 10/25/20 16:58 Discharge Plan Discharge Patient Disposition: Home Clinical Impression: Status post tooth extraction, Pain, dental Condition: Stable Prescriptions: New clindamycin HCl 300 mg capsule 300 mg PO Q6H 7 Days Qty: 28 RF: 0 tramadol 50 mg tablet 50 mg PO Q6H PRN (Reason: pain) Qty: 10 RF: 0 Discontinued hydrocodone-acetaminophen 10-325 mg tablet 1 tab PO Q4H PRNRF: 0 No Action lidocaine 1.8 % adhesive patch,medicated 1 patch topical DAILY Qty: 30 RF: 1 methenamine hippurate 1 gram tablet 1 g PO BID Qty: 60 RF: 12 fluoxetine [Prozac] 40 mg capsule 40 mg PO QAM Qty: 30 RF: 3 lamotrigine [Lamictal] 200 mg tablet 200 mg PO BID Qty: 60 RF: 3 mirtazapine [Remeron] 15 mg tablet 15 mg PO .bedtime Qty: 30 RF: 3 Aimovig Autoinjector 140 mg/mL auto-injector 140 mg SUBCUT .monthly Qty: 1 RF: 2 ondansetron HCl [Zofran] 4 mg tablet 4 mg PO Q6H PRNRF: 0 methocarbamol 750 mg tablet 750 mg PO Q6H RF: 0 tizanidine 4 mg capsule 4 mg PO Q6H PRNRF: 0 clonazepam [Klonopin] 0.5 mg tablet 0.5 mg PO BID Qty: 60 RF: 3 sucralfate 1 gram tablet See Rx Instructions .ROUTE .COMPLEX Qty: 60 RF: 1 sumatriptan succinate [Imitrex] 100 mg tablet See Rx Instructions PO .COMPLEX Qty: 7 RF: 0 tamsulosin [Flomax] 0.4 mg capsule 0.4 mg PO DAILY@0800 RF: 0 pantoprazole 40 mg tablet,delayed release (DR/EC) 40 mg PO DAILY@0800 RF: 0 Discharge Orders: Discharge ED (Routine); Ordered 10/25/20 Ordered By: Mariel Stevens Referrals: Mattie Summers DO [Primary Care Provider] - Patient Instructions: Dental Caries (ED), Toothache (ED) Activity Restrictions/Additional Instructions: As we discussed please contact your dentist as soon as possible to schedule a follow-up appointment. You may return to the emergency department for severe or uncontrollable pain, severe facial swelling, difficulty swallowing, fevers, or any other concerns you may have. I hope you begin to feel better soon. 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
[2020-10-25 16:58] VITALS: PULSE 88; RESP 19; TEMP 37.1; O2SAT 97
== END 2020-10-25 17:00 | disposition home or self-care (01) ==
LOC: ER 17:00
PROVIDERS: Emergency Provider Physician Assistant; PCP Family Medicine
DX: K08.89 Other specified disorders of teeth and supporting structures (principal); K08.409 Partial loss of teeth, unspecified cause, unspecified class; F17.210 Nicotine dependence, cigarettes, uncomplicated
CPT/HCPCS: 99281

== ENCOUNTER → 2020-11-06 08:11 | Outpatient (BNVA) | payer MEDICAID, SELFPAY | PROVIDERS: PCP Family Medicine; Visit Provider Counselor Professional | DX: F33.2 Major depressive disorder, recurrent severe without psychotic features (principal); F41.0 Panic disorder [episodic paroxysmal anxiety]; F43.12 Post-traumatic stress disorder, chronic; F17.210 Nicotine dependence, cigarettes, uncomplicated; Z86.59 Personal history of other mental and behavioral disorders | CPT/HCPCS: 90834 ==

== ENCOUNTER → 2020-11-23 07:17 | Outpatient (BNVA) | payer MEDICAID, SELFPAY | PROVIDERS: PCP Family Medicine; Visit Provider Counselor Professional | DX: F33.2 Major depressive disorder, recurrent severe without psychotic features (principal); F41.0 Panic disorder [episodic paroxysmal anxiety]; F43.12 Post-traumatic stress disorder, chronic; F17.210 Nicotine dependence, cigarettes, uncomplicated; Z86.59 Personal history of other mental and behavioral disorders | CPT/HCPCS: 90834 ==

== ENCOUNTER 2020-11-28 07:36 | Emergency (ER) | payer MEDICAID, SELFPAY ==
[2020-11-28 07:46] VITALS: BP 122/100; PULSE 109; RESP 19; TEMP 36.9; O2SAT 100; BMI 25.0
[2020-11-28 07:54] VITALS: BP 122/100; PULSE 99; RESP 19; O2SAT 100
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
[2020-11-28] MEDS: ketorolac 30 mg/mL INJ IVP (08:02)
[2020-11-28] MEDS: orphenadrine 30 mg/mL Inj 2 mL 60 MG IVP (08:03)
[2020-11-28] MEDS: dexamethasone 10 mg/mL INJ IVP (08:03)
[2020-11-28 09:08] VITALS: RESP 20
[2020-11-28] MEDS: morphine 4 mg/mL SDV 1 mL IVP (09:08)
[2020-11-28] MEDS: acetaminophen 1,000 MG/100 ML PIGGYBACK 400 MG IV (09:08)
[2020-11-28 10:12] VITALS: BP 97/69; PULSE 77; RESP 17; TEMP 36.9; O2SAT 99
== END 2020-11-28 10:21 | disposition home or self-care (01) ==
PROVIDERS: Emergency Provider Family Medicine; PCP Family Medicine
DX: S39.012A Strain of muscle, fascia and tendon of lower back, initial encounter (principal); G89.29 Other chronic pain; F17.210 Nicotine dependence, cigarettes, uncomplicated; X58.XXXA Exposure to other specified factors, initial encounter
CPT/HCPCS: 96374; 96375; 99284; J1100; J1885; J2270; J2360

== ENCOUNTER → 2020-12-05 08:36 | Outpatient (BNVA) | payer MEDICAID, SELFPAY | PROVIDERS: PCP Family Medicine; Visit Provider Counselor Professional | DX: F33.2 Major depressive disorder, recurrent severe without psychotic features (principal); F41.0 Panic disorder [episodic paroxysmal anxiety]; F43.12 Post-traumatic stress disorder, chronic; Z86.59 Personal history of other mental and behavioral disorders | CPT/HCPCS: 90834 ==

== ENCOUNTER → 2020-12-11 07:15 | Outpatient (BNVA) | payer MEDICARE, MEDICAID, SELFPAY | PROVIDERS: PCP Family Medicine; Visit Provider Nurse Practitioner Psychiatric/Mental Health | DX: F33.2 Major depressive disorder, recurrent severe without psychotic features (principal); F41.0 Panic disorder [episodic paroxysmal anxiety]; F43.12 Post-traumatic stress disorder, chronic; F17.210 Nicotine dependence, cigarettes, uncomplicated; Z86.59 Personal history of other mental and behavioral disorders | CPT/HCPCS: 99214 ==

== ENCOUNTER → 2020-12-19 07:25 | Outpatient (BNVA) | payer MEDICAID, SELFPAY | PROVIDERS: PCP Family Medicine; Visit Provider Counselor Professional | DX: F33.2 Major depressive disorder, recurrent severe without psychotic features (principal) | CPT/HCPCS: 90834; 90832 ==

== ENCOUNTER → 2021-01-02 08:35 | Outpatient (BNVA) | payer MEDICAID, SELFPAY | PROVIDERS: PCP Family Medicine; Visit Provider Counselor Professional | DX: F33.2 Major depressive disorder, recurrent severe without psychotic features (principal); F41.0 Panic disorder [episodic paroxysmal anxiety]; F43.12 Post-traumatic stress disorder, chronic; F17.210 Nicotine dependence, cigarettes, uncomplicated; Z86.59 Personal history of other mental and behavioral disorders | CPT/HCPCS: 90834 ==

== ENCOUNTER → 2021-01-22 07:41 | Outpatient (BNVA) | payer MEDICAID, SELFPAY | PROVIDERS: PCP Family Medicine; Visit Provider Nurse Practitioner Psychiatric/Mental Health | DX: F33.2 Major depressive disorder, recurrent severe without psychotic features (principal); F41.0 Panic disorder [episodic paroxysmal anxiety]; F43.12 Post-traumatic stress disorder, chronic; F17.210 Nicotine dependence, cigarettes, uncomplicated; Z86.59 Personal history of other mental and behavioral disorders | CPT/HCPCS: 99214 ==

== ENCOUNTER → 2021-01-23 07:47 | Outpatient (BNVA) | payer MEDICAID, SELFPAY | PROVIDERS: PCP Family Medicine; Visit Provider Counselor Professional | DX: F33.2 Major depressive disorder, recurrent severe without psychotic features (principal); F41.0 Panic disorder [episodic paroxysmal anxiety]; F43.12 Post-traumatic stress disorder, chronic; F17.210 Nicotine dependence, cigarettes, uncomplicated; Z86.59 Personal history of other mental and behavioral disorders | CPT/HCPCS: 90834 ==

== ENCOUNTER → 2021-02-13 09:00 | Outpatient (BNVA) | payer MEDICAID, SELFPAY | PROVIDERS: PCP Family Medicine; Visit Provider Counselor Professional | DX: F43.12 Post-traumatic stress disorder, chronic (principal) | CPT/HCPCS: 90834 ==

== ENCOUNTER → 2021-02-19 07:29 | Outpatient (BNVA) | payer MEDICAID, SELFPAY | PROVIDERS: PCP Family Medicine; Visit Provider Nurse Practitioner Psychiatric/Mental Health | DX: F33.2 Major depressive disorder, recurrent severe without psychotic features (principal); F41.0 Panic disorder [episodic paroxysmal anxiety]; F43.12 Post-traumatic stress disorder, chronic; F17.210 Nicotine dependence, cigarettes, uncomplicated; Z86.59 Personal history of other mental and behavioral disorders | CPT/HCPCS: 99214 ==

== ENCOUNTER → 2021-02-20 08:02 | Outpatient (BNVA) | payer MEDICAID, SELFPAY | PROVIDERS: PCP Family Medicine; Visit Provider Counselor Professional | DX: F33.2 Major depressive disorder, recurrent severe without psychotic features (principal); F41.0 Panic disorder [episodic paroxysmal anxiety]; F43.12 Post-traumatic stress disorder, chronic | CPT/HCPCS: 90834 ==

== ENCOUNTER → 2021-03-22 07:31 | Outpatient (BNVA) | payer MEDICARE, MEDICAID, SELFPAY | PROVIDERS: PCP Family Medicine; Visit Provider Nurse Practitioner Psychiatric/Mental Health | DX: F33.2 Major depressive disorder, recurrent severe without psychotic features (principal); F41.0 Panic disorder [episodic paroxysmal anxiety]; F43.12 Post-traumatic stress disorder, chronic; Z86.59 Personal history of other mental and behavioral disorders | CPT/HCPCS: 99214 ==

== ENCOUNTER → 2021-08-21 08:48 | Outpatient (BNVA) | payer MEDICARE, MEDICAID, SELFPAY | PROVIDERS: PCP Family Medicine; Visit Provider Nurse Practitioner Psychiatric/Mental Health | DX: F33.2 Major depressive disorder, recurrent severe without psychotic features (principal); F41.0 Panic disorder [episodic paroxysmal anxiety]; F43.12 Post-traumatic stress disorder, chronic; Z86.59 Personal history of other mental and behavioral disorders | CPT/HCPCS: 99214 ==

== ENCOUNTER → 2021-09-19 16:10 | Outpatient (BNVA) | payer MEDICARE, MEDICAID, SELFPAY | PROVIDERS: PCP Family Medicine; Visit Provider Obstetrics & Gynecology | DX: N93.9 Abnormal uterine and vaginal bleeding, unspecified (principal) | CPT/HCPCS: 87624; 88305 ==

== ENCOUNTER 2021-10-09 10:26 | Outpatient (CLI) | payer MEDICARE, MEDICAID, SELFPAY ==
[2021-10-09 11:39] LABS: LAB Peripheral Smear Sent for Review
--- NOTE | 2021-10-09 11:45 | US_ITS ---
WS: [id number] TRANSABDOMINAL PELVIC AND TRANSVAGINAL PELVIC ULTRASOUND HISTORY: N93.9 - Abnormal uterine and vaginal bleeding, unspecified COMPARISON: None available. Uterus: 7.5 cm x 5.8 cm x 4.5 cm. Anteverted uterus is normal size. Variable echogenicity within the myometrium. This is new since the prior study. There may be small fibroids present. The junctional zo ne is still present. Endometrium: 0.8 cm. Junctional zone is normal around the endometrium. There is fluid distending the endometrial canal. No mass identified. Right ovary: 3.8 cm x 2.9 cm x 2.2 cm. Normal size ovary and vascularity. There is a small hemorrhagi c and collapsing corpus luteal cyst measuring 18 x 20 x 17 mm. Left ovary: 2.4 cm x 2.1 cm x 1.1 cm. Normal size. Normal vascularity. No free fluid US/US pelvic with transvaginal IMPRESSION: 1. Heterogeneous myometrium without discrete mass. There may be present fibroi ds present. Less likely adenomyosis as the junctional zone is still present and normal. 2. Small amount of fluid distending the endometrial canal but no mass identifi ed. Component of cervical stenosis may be present. 3. Negative ovaries.
== END 2021-10-09 10:27 | disposition home or self-care (01) ==
LOC: RAD 10:29 → LAB 10:32
PROVIDERS: PCP Family Medicine; Visit Provider Obstetrics & Gynecology
DX: N93.9 Abnormal uterine and vaginal bleeding, unspecified (principal)
CPT/HCPCS: 36415; 76830; 76856; 80503

== ENCOUNTER 2021-10-30 12:05 | Day surgery (SDC) | payer MEDICARE, MEDICAID, SELFPAY ==
[2021-10-30] VITALS (8 sets, daily range): BP systolic 90–115; BP diastolic 62–74; PULSE 79–108; RESP 16–19; TEMP 36.2–36.9; O2SAT 99–100
--- NOTE | 2021-10-30 12:25 | P.ANESASSM_ITS ---
Pre-Anesthetic Assessment Height/Weight: Height 1.7 m Weight 70.307 kg Temp Pulse Resp BP Pulse Ox O2 Del Method 98.5 F 108 H 18 115/74 99 10/30/21 12:18 10/30/21 12:18 10/30/21 12:18 10/30/21 12:18 10/30/21 12:18 10/30/21 12:18 Preop Diagnosis: AUB, cervical stenosis Operation Date: 10/30/21 13:45 Proposed Procedures p Hysteroscopy, dilation and curettage with Myosure 66469, 21319, 58474,N93.9(Not Applicable) - Maira Stephens MD s Dilation And Curettage (D&C)(Not Applicable) - Maira Stephens MD Familial anesthetic complications: Wakes up emotional not knowing where I am at recently had endoscopy where this did not occur and was told she was given more medicine Was Beta Kaci taken within 24 hours: N/A Was Clonidine taken within 24 hours: N/A Social Tobacco and No alcohol Exam alert, oriented x 3, clear to auscultation bilaterally and regular rate & rhythm Airway Submandibular: within normal limits Cervical ROM: within normal limits Mallampati: Class II Dentition: full Pulmonary None reported CV/HEM None reported METS > 4 Cervical steonsis AUB Hx of acute urinary retention Hepatic None reported GI Gastroesophageal Reflux Disease (Well controlled ) Hx of gastritis Metabolic None reported Musc/skel Lower Back Pain and Osteoarthritis/DJD S/P lower lumbar surgery Neuropsych Depression and Headache PTSD Panic disorder Anesthetic Plan ASA status: 3 (31 year old smoker with hx of GERD, PTSD, gastritis, and eating disorder ) Anesthesia: Anesthesia Evaluation and General Other: We discussed risk and benefits of general anesthesia including PONV, sore throat (sometimes severe), corneal abrasion, positioning and peripheral nerve injuries, life threatening allergic reaction, post operative ICU admission requiring prolonged intubation, aspiration, stroke, heart attack, , and rare incidences of recall. Patient consents to proceed with general anesthesia. Risk of > 500 ml blood loss (7ml/kg in children): No Medications/Allergies Home Medications Medication Instructions Recorded Confirmed Last Taken Type pantoprazole 40 mg tablet,delayed 40 mg PO DAILY@0800 03/08/20 10/29/21 03/13/20 History release tizanidine 4 mg capsule (Zanaflex) 4 mg PO Q6H PRN Spasms 06/15/20 10/29/21 Unknown History clonazepam 0.5 mg tablet (Klonopin) 0.5 mg PO BID PRN anxiety #60 tabs 08/21/21 10/29/21 Unknown Rx fluoxetine 20 mg capsule (Prozac) 20 mg PO .morning #30 caps 08/21/21 10/29/21 Unknown Rx fluoxetine 40 mg capsule (Prozac) 40 mg PO QAM #30 caps 08/21/21 10/29/21 Unknown Rx mirtazapine 15 mg tablet (Remeron) 7.5 mg PO .bedtime #15 tabs 08/21/21 10/29/21 Unknown Rx lidocaine HCl 4 % topical liquid 1 ea topical DIRECTED PRN Pain 09/19/21 10/29/21 Unknown History roll-on (Aspercreme (lidocaine HCl)) methocarbamol 750 mg tablet 750 mg PO Q6H PRN Muscle Spasm 09/19/21 10/29/21 Unknown History tamsulosin 0.4 mg capsule (Flomax) 0.4 mg PO DAILY@0800 PRN urine 09/19/21 10/29/21 Unknown History retention misoprostol 200 mcg tablet 600 mcg PO Q6H #12 tabs 10/15/21 10/29/21 Unknown Rx (Cytotec) hydrocodone 7.5 mg-acetaminophen 1 tab PO TID PRN Pain 10/29/21 10/29/21 Unknown History 325 mg tablet methenamine hippurate 1 gram 1 g PO BID 10/29/21 10/29/21 Unknown History tablet (Hiprex) sucralfate 1 gram tablet (Carafate) 1 g PO DAILY 10/29/21 10/29/21 Unknown History Allergies Allergy/AdvReac Type Severity Reaction Status Date / Time cefaclor [From [facility]] Allergy Unknown Unknown--diagnosed Verified 10/15/21 14:03 with allergy testing Penicillins Allergy Unknown Hives---can Verified 10/15/21 14:03 take Keflex and amoxicillin Sulfa (Sulfonamide Allergy Unknown hives Verified 10/15/21 14:03 Antibiotics) zolpidem [From Ambien] AdvReac hallucinations Verified 10/15/21 14:03 and nightmares PFSH Anesthesia Medical History Chronic post-traumatic stress disorder History of eating disorder Major depressive disorder, recurrent severe without psychotic features Nicotine dependence, cigarettes, uncomplicated No pertinent past medical history Denies diabetes, hypertension, seizures, DVT/PE PCP: Dr. Summers Panic disorder Psychiatric care Recurrent UTI Surgical History H/O ureter repair History of back surgery 2020--T12 and L1 History of colonoscopy (~2015) History of esophagogastroduodenoscopy (EGD) (~11/2019) History of laparoscopic cholecystectomy S/P tonsillectomy S/P tubal ligation laparoscopic procedure, performed in 2014 Family History Mother Chronic kidney disease (CKD) Stroke Ovarian cancer diagnosed at age 32 or 33 Grandfather No problems noted. Grandmother Diabetes paternal Ovarian cancer maternal, age at diagnosis unknown Father Hyperlipidemia Stroke Family/Other Ovarian cancer maternal aunt, age age at diagnosis unknown Denies family history of Colon cancer Heart disease Hypertension Uterine cancer Thyroid condition Social History Smoking and tobacco status: current every day smoker cigarettes Packs smoked per day: 1 Alcohol intake: never Marital status: Current occupational status: unemployed History of recent travel: No Female Reproductive History Date of last menstrual period: 11/08/20 Data Anesthesia Cardiac Studies: No Data to Display
[2021-10-30] MEDS: sodium chloride 0.9% 1,000 ML 30 ML IV (12:50)
--- NOTE | 2021-10-30 14:55 | W.PM.OPSUD ---
Surgery/Procedure H&P Update DATE OF PROCEDURE: October 30, 2021 DATE H&P PERFORMED: 10/24/21 H&P UPDATE INFORMATION: I have reviewed H&P completed within last 30 days, I have examined patient prior to procedure and No changes to prior documentation PREOP DIAGNOSIS: AUB, cervical stenosis PLANNED PROCEDURE: Operation Date: 10/30/21 13:45 Proposed Procedures p Hysteroscopy, dilation and curettage with Myosure 08334, 18005, 10965,N93.9(Not Applicable) - Maira Stephens MD s Dilation And Curettage (D&C)(Not Applicable) - Maira Stephens MD Related Problem List Diagnoses (1) Cervical stenosis (uterine cervix): (2) Abnormal uterine bleeding (AUB):
--- NOTE | 2021-10-30 15:58 | P.OP_ITS ---
Operative Report Date of procedure: October 30, 2021 Pre-op diagnosis: Preop Diagnosis AUB, cervical stenosis Post-op diagnosis: same Post-op findings: moderate amount of endometrial tissue with endometrial polyps and septate uterus Procedure done: hysteroscopy, dilation and curettage with myosure Specimens removed/disposition: endometrial curettings to pathology Surgeon: Maira Stephens Anesthesia: MAC Estimated blood loss (mL): 5 IV fluids (mL): 800 Complications: none Findings: 545 ml of hysteroscopy deficit Procedure: The patient was taken to the operating room where monitored anesthesia was administered and to be adequate. She was prepped and draped in the normal sterile fashion in the dorsal lithotomy position in [facility]. A weighted speculum was placed into the vagina and the anterior lip of the cervix grasped with a single-tooth tenaculum. The uterus was sounded to 9 cm. The cervix was dilated to 16 Indonesian. The hysteroscope was advanced into the endometrial cavity. There was a uterine septum and moderate tissue visualized. The MyoSure device was activated and the tissue was removed. Pictures were taken pre and post procedure. All instruments were removed. The patient tolerated the procedure well. Sponge lap and needle counts were correct x3. She was taken to the recovery room in stable condition.
--- NOTE | 2021-10-30 16:04 | P.DS_ITS ---
Discharge Providers Date of Admission: 10/30/21 Date of Discharge: October 30, 2021 Attending Provider at Discharge: Maira Stephens MD Primary Care Provider: Mattie Summers DO Diagnoses at Discharge Discharge Diagnosis (1) Cervical stenosis (uterine cervix): Status: Acute (2) Abnormal uterine bleeding (AUB): Status: Acute Reason for Visit Reason for Visit: Abdominal pain Hospital Course Hospital Course The patient was admitted for surgery. She did well postoperatively and was ready for discharge. Discharge Data Studies Completed and Pending Pending at discharge Category Date Time Status ES surgery / GI images Routine Exams 10/30/21 15:10 Taken OR HCG Qualitative Urine Routine Lab 10/30/21 12:32 Ordered Vitals Last Vital Signs Temp 98.5 F 10/30/21 12:18 Pulse 108 H 10/30/21 12:18 Resp 18 10/30/21 12:18 BP 115/74 10/30/21 12:18 Pulse Ox 99 10/30/21 12:18 O2 Del Method 10/30/21 12:28 Discharge Plan Discharge Patient Disposition: Home Condition: Stable Prescriptions: Continued tizanidine [Zanaflex] 4 mg capsule 4 mg PO Q6H PRN (Reason: Spasms) methocarbamol 750 mg tablet 750 mg PO Q6H PRN (Reason: Muscle Spasm) clonazepam [Klonopin] 0.5 mg tablet 0.5 mg PO BID PRN (Reason: anxiety) Qty: 60 3RF Rx Instructions: Take one tablet twice per day as needed for anxiety fluoxetine [Prozac] 20 mg capsule 20 mg PO .morning Qty: 30 4RF Rx Instructions: Take one capsule in morning with 40 mg capsule for total dose 60 mg. fluoxetine [Prozac] 40 mg capsule 40 mg PO QAM Qty: 30 4RF Rx Instructions: Take one capsule every morning mirtazapine [Remeron] 15 mg tablet 7.5 mg PO .bedtime Qty: 15 4RF Rx Instructions: Take half tablet at bedtime Aspercreme (lidocaine HCl) 4 % liquid roll-on 1 ea topical DIRECTED PRN (Reason: Pain) misoprostol [Cytotec] 200 mcg tablet 600 mcg PO Q6H Qty: 12 0RF Rx Instructions: Start medication 24 hours prior to procedure. Last dose should be at 6 am, d ay of procedure pantoprazole 40 mg tablet,delayed release (DR/EC) 40 mg PO DAILY@0800 Rx Instructions: take thirty minutes prior to first meal of the day tamsulosin [Flomax] 0.4 mg capsule 0.4 mg PO DAILY@0800 PRN (Reason: urine retention) hydrocodone-acetaminophen 7.5-325 mg tablet 1 tab PO TID PRN (Reason: Pain) sucralfate [Carafate] 1 gram tablet 1 g PO DAILY Rx Instructions: TAKE 1 TABLET BY MOUTH TWICE DAILY methenamine hippurate [Hiprex] 1 gram tablet 1 g PO BID Rx Instructions: Take 1000 mg of vitamin C with each dose of methenamine Discharge Orders: Discharge Order (Routine); Ordered 10/30/21 Ordered By: Maira Stephens Discharge Attestations Time Spent in Discharge Care*: less than 30 min Quality Metrics Clinical Quality Measures [ No reported AMI, CVA or VTE this stay] Coding Level of Care Code Acute Chg FW DC note Diagnoses Cervical stenosis (uterine cervix) N88.2 Abnormal uterine bleeding (AUB) N93.9
--- NOTE | 2021-10-30 17:08 | ANE.PACU2 ---
Inpatient post-anesthesia follow up: Airway intact: Yes Vital signs: Temperature 97.6 F Pulse Rate 79 Respiratory Rate 18 Blood Pressure 115/74 Pulse Oximetry 100 Oxygen Delivery Me thod Room Air Oxygen Flow Rate Fraction of Inspir ed Oxygen Hydration adequate: Yes Nausea and vomiting: No Pain level: 2 Mental status: Baseline
== END 2021-10-30 16:51 | disposition home or self-care (01) ==
PROVIDERS: PCP Family Medicine; Visit Provider Obstetrics & Gynecology
PROC: 0UDB8ZZ Extraction of Endometrium, Via Natural or Artificial Opening Endoscopic (ICD-10-PCS; CPT 58558; principal; 2021-10-30 13:35)
PROC: (CPT 58120; 2021-10-30 13:35)
DX: N84.0 Polyp of corpus uteri (principal); N88.2 Stricture and stenosis of cervix uteri; Q51.28 Other and unspecified doubling of uterus; F17.210 Nicotine dependence, cigarettes, uncomplicated; Z88.0 Allergy status to penicillin; Z88.2 Allergy status to sulfonamides
CPT/HCPCS: 58558; 88305; J1885; J2405; J2704; J3010; J7030

== ENCOUNTER 2022-01-02 08:45 | Emergency (ER) | payer MEDICARE, MEDICAID, SELFPAY ==
[2022-01-02 09:02] VITALS: BP 128/89; PULSE 112; RESP 14; TEMP 37; O2SAT 99; BMI 23.5
--- NOTE | 2022-01-02 09:34 | XR_ITS ---
WS: [id number] Exam: XR chest 1V portable [id number] Date/Time of Exam: 01/02/2022 9:38 AM Reason For Exam: dyspnea/cough Comparison 08/04/2018. Mild infiltrate in the right lower lobe suspicious for developing pneumonia. Remaining lung gonzales ar e clear. The lungs are fully inflated. No pleural effusions. Normal cardiomediastinal silhouette. Bon y structures are unremarkable. Fusion hardware noted at the T12-L1 level. XR/XR chest 1V portable [id number] IMPRESSION: 1. Small infiltrate in the right lower lobe suspicious for pneumonia.
--- NOTE | 2022-01-02 10:03 | ED_ITS ---
HPI - General Adult General: Chief complaint: General Medical Stated complaint: Fever, body aches Time Seen by Provider: 01/02/22 09:31 History of Present Illness: Ms. Maya is a 31-year-old lady with significant past medical history of tobaccoism presenting to the emergency department due to generalized illness. Onset of symptoms was approximately 2 days ago and subacute. She endorses generalized malaise associated with cough, body aches, kidney pain, and urinary symptoms. Course of symptoms has worsened mildly. Intensity is moderate to severe. She does have some relief of fever by [id number] medications however fevers return. No other specific changes in health, exacerbating, or alleviating factors identified. Onset (ago): day(s) Severity: moderate Quality: aching Pain Consistency: constant Exacerbating factors: movement Associated symptoms: Reports cough, fevers/chills, headache(s), malaise and nausea Review of Systems General: Reports: 10 or more systems reviewed and unremarkable except in HPI and below Const: Reports: malaise GI: Reports: nausea Neuro: Reports: headache(s) PFSH ED PFSH: Medical History Chronic post-traumatic stress disorder History of eating disorder Major depressive disorder, recurrent severe without psychotic features Nicotine dependence, cigarettes, uncomplicated No pertinent past medical history Denies diabetes, hypertension, seizures, DVT/PE PCP: Dr. Summers Panic disorder Psychiatric care Recurrent UTI Surgical History H/O ureter repair History of back surgery 2020--T12 and L1 History of colonoscopy (~2015) History of esophagogastroduodenoscopy (EGD) (~11/2019) History of laparoscopic cholecystectomy S/P tonsillectomy S/P tubal ligation laparoscopic procedure, performed in 2014 Family History Mother Chronic kidney disease (CKD) Stroke Ovarian cancer diagnosed at age 32 or 33 Grandfather No problems noted. Grandmother Diabetes paternal Ovarian cancer maternal, age at diagnosis unknown Father Hyperlipidemia Stroke Family/Other Ovarian cancer maternal aunt, age age at diagnosis unknown Denies family history of Colon cancer Heart disease Hypertension Uterine cancer Thyroid condition Social History Smoking and tobacco status: current every day smoker cigarettes Packs smoked per day: 1 Alcohol intake: never Marital status: Current occupational status: unemployed History of recent travel: No Female Reproductive History: Date of last menstrual period: 12/21/21 Physical Exam Const: COMMON NORMALS: alert GENERAL APPEARANCE: cooperative, well developed and ill appearing (Mildly) HENMT: COMMON NORMALS: normocephalic, atraumatic, external ears normal, EAC's normal and TM's normal bilaterally HEAD & SCALP: normocephalic and atraumatic EXTERNAL EAR: Yes external ears normal EXTERNAL AUDITORY CANAL: EAC's normal TYMPANIC MEMBRANE: TM's normal bilaterally Eye: COMMON NORMALS: conjunctivae normal CONJUNCTIVA: Yes conjunctivae normal SCLERA: sclerae normal Neck/C-Spine: COMMON NORMALS: supple GENERAL: Yes trachea midline Resp: EFFORT & INSPECTION: Yes able to speak in complete sentences AUSCULTATION: diminished lung sounds Cardio: COMMON NORMALS: regular rhythm RATE: tachycardic RHYTHM: regular rhythm GI: COMMON NORMALS: Soft to palpation PALPATION: Yes Soft to palpation and No Tenderness to palpation present (GI) PERCUSSION: normal to percussion Extremity: GENERAL: Yes normal exam except as noted and No edema Neuro: COMMON NORMALS: moves all extremities SENSORIUM/ORIENTATION: Yes alert and No Orientation impaired Psych: COMMON NORMALS: mental status grossly normal and Normal thought process present THOUGHT PROCESS: Normal thought process present Course Vital Signs: Vital signs: Vital Signs Temperature 98.6 F 01/02/22 09:02 Pulse Rate 83 01/02/22 13:13 Respiratory Rate 14 01/02/22 09:02 Blood Pressure 106/64 01/02/22 13:13 Pulse Oximetry 100 01/02/22 13:13 Oxygen Delivery Me thod 01/02/22 11:16 [facility] - General Adult Medical Decision Making 31-year-old lady presenting with fever and respiratory concern as well as generalized illness. Patient is mildly ill in appearance and initially mildly tachycardic though nontoxic. Laboratory studies essentially unremarkable, COVID PCR is pending. Chest x-ray consistent with pneumonia. Upon reassessment patient feels improved and is satisfactory for outpatient management of pneumonia. The results of ED evaluation were discussed with the patient including prescriptions and/or symptomatic cares (if applicable) including appropriate and responsible use, followup plan, and return precautions. The patient verbalized understanding and felt safe for discharge. Medical Records I reviewed the patient's medical records. Lab Data I reviewed the patient's lab results. : 01/02/22 11:08 01/02/22 11:08 Radiology Impressions Chest X-Ray 01/02/22 09:34 IMPRESSION: 1. Small infiltrate in the right lower lobe suspicious for pneumonia. Laboratory Results WBC 4.6 10^3/uL (4.0-10.0) 01/02/22 11:08 RBC 4.15 10^6/uL (4.1-5.3) 01/02/22 11:08 Hgb 13.4 g/dL (11.5-15.3) 01/02/22 11:08 Hct 39.0 % (37.0-47.0) 01/02/22 11:08 MCV 94.0 fl (81-99) 01/02/22 11:08 MCH 32.3 pg (28.0-34.0) 01/02/22 11:08 MCHC 34.4 g/dL (30.0-36.0) 01/02/22 11:08 RDW 12.2 % (12.1-15.1) 01/02/22 11:08 Plt Count 175 10^3/cmm (130-400) 01/02/22 11:08 MPV 9.8 fL (7.4-10.4) 01/02/22 11:08 Neut % (Auto) 70.1 % 01/02/22 11:08 Lymph % (Auto) 18.9 % 01/02/22 11:08 [place] % (Auto) 8.6 % 01/02/22 11:08 Eos % (Auto) 1.8 % 01/02/22 11:08 Baso % (Auto) 0.4 % 01/02/22 11:08 Neut # (Auto) 3.20 10^3/uL (1.8-7.7) 01/02/22 11:08 Lymph # (Auto) 0.9 10^3/uL (0.8-4.8) 01/02/22 11:08 [place] # (Auto) 0.4 10^3/uL (0.2-0.9) 01/02/22 11:08 Eos # (Auto) 0.1 10^3/uL (0.0-0.8) 01/02/22 11:08 Baso # (Auto) 0.0 10^3/uL (0.0-0.1) 01/02/22 11:08 Nucleated RBC % (auto) 0 % 01/02/22 11:08 Nucleated RBCs # 0.0 /100WBC 01/02/22 11:08 Sodium 137 mmol/L (136-145) 01/02/22 11:08 Potassium 4.1 mmol/L (3.5-5.1) 01/02/22 11:08 Chloride 103 mmol/L (98-107) 01/02/22 11:08 Carbon Dioxide 23 mmol/L (22-29) 01/02/22 11:08 Anion Gap 15.1 (5-19) 01/02/22 11:08 BUN 10 mg/dL (6-20) 01/02/22 11:08 Creatinine 0.8 mg/dL (0.5-0.9) 01/02/22 11:08 GFR Calculation 83.1 mL/min (90-130) L 01/02/22 11:08 Glucose 93 mg/dL (65-115) 01/02/22 11:08 Calculated Osmolality 283 mOsm/kg (285-295) L 01/02/22 11:08 Calcium 9.2 mg/dL (8.5-10.5) 01/02/22 11:08 Total Bilirubin 0.4 mg/dL (0.15-1.2) 01/02/22 11:08 AST 14 U/L (0-32) 01/02/22 11:08 ALT 17 U/L (0-33) 01/02/22 11:08 Alkaline Phosphatase 57 U/L (35-105) 01/02/22 11:08 Total Protein 7.0 g/dL (6.6-8.7) 01/02/22 11:08 Albumin 4.1 g/dL (3.5-5.2) 01/02/22 11:08 Globulin 2.9 g/dL (1.3-4.6) 01/02/22 11:08 HCG, Qual Negative (Negative) 01/02/22 11:08 Urine Color Yellow (Yellow) 01/02/22 11:05 Urine Appearance Clear (CLEAR) 01/02/22 11:05 Urine pH 5 (5-7) 01/02/22 11:05 Ur Specific [place] 1.010 (1.005-1.030) 01/02/22 11:05 Urine Protein Neg (Negative) 01/02/22 11:05 Urine Glucose (UA) Norm (Normal) 01/02/22 11:05 Urine Ketones Negative (Negative) 01/02/22 11:05 Urine Blood Neg (Negative) 01/02/22 11:05 Urine Nitrate Negative (Negative) 01/02/22 11:05 Urine Bilirubin Neg (Negative) 01/02/22 11:05 Urine Urobilinogen Neg mg/dL (Negative) 01/02/22 11:05 Ur Leukocyte Esterase Negative (Negative) 01/02/22 11:05 Coronavirus 229E (PCR) Not detected (NOT DETECT) 01/02/22 09:45 SARS-CoV-2 (PCR) Not detected (NOT DETECT) 01/02/22 09:45 Discharge Plan Discharge Patient Disposition: Home Clinical Impression: Pneumonia Condition: Stable Prescriptions: New ondansetron 4 mg tablet,disintegrating 4 mg PO Q8H PRN (Reason: nausea and vomiting) Qty: 15 0RF doxycycline hyclate 100 mg capsule 100 mg PO BID 7 Days Qty: 14 0RF cephalexin 500 mg capsule 1,000 mg PO BID 7 Days Qty: 28 0RF No Action tizanidine [Zanaflex] 4 mg capsule 4 mg PO Q6H PRN (Reason: Spasms) methocarbamol 750 mg tablet 750 mg PO Q6H PRN (Reason: Muscle Spasm) fluoxetine [Prozac] 40 mg capsule 40 mg PO QAM Qty: 90 2RF Rx Instructions: Take one capsule every morning fluoxetine [Prozac] 20 mg capsule 20 mg PO .morning Qty: 90 2RF Rx Instructions: Take one capsule in morning with 40 mg capsule for total dose 60 mg. clonazepam [Klonopin] 0.5 mg tablet 0.5 mg PO DAILY PRN (Reason: anxiety) Qty: 30 3RF Rx Instructions: Take one tablet daily as needed for anxiety mirtazapine [Remeron] 15 mg tablet 7.5 mg PO .9 pm Qty: 15 4RF Rx Instructions: Take half tablet at 9 pm pantoprazole 40 mg tablet,delayed release (DR/EC) 40 mg PO DAILY@0800 Rx Instructions: take thirty minutes prior to first meal of the day tamsulosin [Flomax] 0.4 mg capsule 0.4 mg PO DAILY@0800 PRN (Reason: urine retention) hydrocodone-acetaminophen 7.5-325 mg tablet 1 tab PO TID PRN (Reason: Pain) sucralfate [Carafate] 1 gram tablet 1 g PO DAILY Rx Instructions: TAKE 1 TABLET BY MOUTH TWICE DAILY methenamine hippurate [Hiprex] 1 gram tablet 1 g PO BID Rx Instructions: Take 1000 mg of vitamin C with each dose of methenamine Discharge Orders: Discharge ED (Routine); Ordered 01/02/22 Ordered By: Sharif English Referrals: Mattie Summers DO [Primary Care Provider] - Discharge Diet: Usual diet Discharge Activity: Increase activity as tolerated Patient Instructions: Pneumonia (ED) Activity Restrictions/Additional Instructions: Thank you for visiting the emergency department. You were seen and evaluated for generalized illness. The most likely cause of your symptoms is pneumonia. This will be treated with antibiotics. Additionally will prescribe antinausea medication. Please follow-up with a primary care provider. Return to the emergency department for worsening symptoms or anything else that you are concerned about and feel needs emergency department evaluation. Coding Level of Care Code ED Power Hair Clipper for Treasure Arnold Exam Comprehensive
[2022-01-02] MEDS: sodium chloride 0.9% 1,000 ML 999 ML IV (11:11)
[2022-01-02] MEDS: ondansetron 2 mg/ML SDV 2 mL 4 MG IVP (11:11)
[2022-01-02 11:16] VITALS: BP 100/75; PULSE 90; O2SAT 100
[2022-01-02 11:18] LABS: Basophils % 0.4 %; Eosinophils # 0.1 10^3/uL (0.0-0.8); Eosinophils % 1.8 %; Hemoglobin 13.4 g/dL (11.5-15.3); Lymphocytes # 0.9 10^3/uL (0.8-4.8); Lymphocytes % 18.9 %; Mean Corpuscular HGB Conc 34.4 g/dL (30.0-36.0); Mean Corpuscular Hemoglobin 32.3 pg (28.0-34.0); Mean Platelet Volume 9.8 fL (7.4-10.4); Monocytes # 0.4 10^3/uL (0.2-0.9); Monocytes % 8.6 %; Neutrophils % 70.1 %; Nucleated Red Blood Cells % 0 %; Platelet Count 175 10^3/cmm (130-400); Red Blood Count 4.15 10^6/uL (4.1-5.3); Red Cell Distribution Width 12.2 % (12.1-15.1); White Blood Count 4.6 10^3/uL (4.0-10.0)
[2022-01-02 11:19] LABS: Add Urine Microscopic? NO; Charge for UA Resulting for Rev
[2022-01-02 11:27] LABS: HCG Qualitative Urine. Negative (Negative)
[2022-01-02 11:35] LABS: Bilirubin Urine Neg (Negative); Blood Urine Neg (Negative); Glucose Urine UA Norm (Normal); Ketones Urine Negative (Negative); Leukocyte Esterase Urine Negative (Negative); Nitrate Urine Negative (Negative); Protein Urine Neg (Negative); Urine Appearance Clear (CLEAR); Urine Color Yellow (Yellow); Urobilinogen Urine Neg (Negative); pH Urine 5 (5-7)
[2022-01-02 11:43] LABS: Alanine Aminotransferase 17 U/L (0-33); Albumin Level 4.1 g/dL (3.5-5.2); Alkaline Phosphatase 57 U/L (35-105); Aspartate Amino Transferase 14 U/L (0-32); Blood Urea Nitrogen 10 mg/dL (6-20); Calcium 9.2 mg/dL (8.5-10.5); Carbon Dioxide 23 mmol/L (22-29); Chloride 103 mmol/L (98-107); Globulin 2.9 g/dL (1.3-4.6); Glomerular Filtration Rate 83.1 mL/min (90-130); Glucose 93 mg/dL (65-115); Osmolality Calculated 283 mOsm/kg (285-295); Sodium 137 mmol/L (136-145); Total Bilirubin 0.4 mg/dL (0.15-1.2)
[2022-01-02 11:44] LABS: Anion Gap 15.1 (5-19); Potassium 4.1 mmol/L (3.5-5.1)
[2022-01-02] MEDS: acetaminophen 500 mg Tablet 1000 MG PO (11:49)
[2022-01-02 13:13] VITALS: BP 106/64; PULSE 83; O2SAT 100
[2022-01-02 13:29] LABS: Adenovirus Not Detected (NOT DETECT); Chlamydia Pneumoniae Not Detected (NOT DETECT); Coronavirus 229E,HKU1,NL63,OC4 Not Detected (NOT DETECT); Human Metapneumovirus Not Detected (NOT DETECT); Human Rhinovirus/Enterovirus Not Detected (NOT DETECT); Influenza A Not Detected (NOT DETECT); Influenza A H1 Not Detected (NOT DETECT); Influenza A H1-2009 Not Detected (NOT DETECT); Influenza A H3 Not Detected (NOT DETECT); Influenza B Not Detected (NOT DETECT); Mycoplasma Pneumoniae Not Detected (NOT DETECT); Parainfluenza Virus Type 1 Not Detected (NOT DETECT); Parainfluenza Virus Type 2 Not Detected (NOT DETECT); Parainfluenza Virus Type 3 Not Detected (NOT DETECT); Parainfluenza Virus Type 4 Not Detected (NOT DETECT); Respiratory Syncytial Virus A Not Detected (NOT DETECT); Respiratory Syncytial Virus B Not Detected (NOT DETECT); SARS-COV-2 Not Detected (NOT DETECT)
== END 2022-01-02 13:10 | disposition home or self-care (01) ==
PROVIDERS: Family Medicine; Emergency Provider Emergency Medicine; PCP Family Medicine
DX: J18.9 Pneumonia, unspecified organism (principal); Z20.822 Contact with and (suspected) exposure to COVID-19; F17.210 Nicotine dependence, cigarettes, uncomplicated
CPT/HCPCS: 36415; 71045; 80053; 81003; 81025; 85025; 87040; 87635; 96361; 96374; 99284; J2405; J7030

== ENCOUNTER 2022-01-22 20:09 | Inpatient (IN) | payer MEDICARE, MEDICAID, SELFPAY ==
[2021-12-24 12:18] VITALS: BMI 24.1
--- NOTE | 2022-01-21 09:11 | P.ANESASSM_ITS ---
Pre-Anesthetic Assessment Height/Weight: Height 1.7 m Weight 69.853 kg Preop Diagnosis: uterine prolapse, aub Operation Date: 01/22/22 09:50 Proposed Procedures p Laparoscopic assisted vaginal hysterectomy, bilateral salpingectomy 90947,N81.4(Not Applicable) - Maira Stephens MD s Laparoscopic Salpingectomy(Bilateral) - Maira Stephens MD Familial anesthetic complications: Anxiety/emotional upon awakening Social Tobacco and No alcohol Exam alert, oriented x 3, clear to auscultation bilaterally and regular rate & rhythm Airway Mallampati: Class II Dentition: full Pulmonary None reported CV/HEM None reported None reported Hepatic None reported GI Gastroesophageal Reflux Disease Metabolic None reported Musc/skel Lower Back Pain, Osteoarthritis/DJD and Scoliosis Neuropsych Anxiety and Headache Anesthetic Plan ASA status: 2 Anesthesia: General Risk of > 500 ml blood loss (7ml/kg in children): No Medications/Allergies Home Medications Medication Instructions Recorded Confirmed Last Taken Type pantoprazole 40 mg tablet,delayed 40 mg PO DAILY@0800 03/08/20 01/18/22 10/29/21 History release tizanidine 4 mg capsule (Zanaflex) 4 mg PO Q6H PRN Spasms 06/15/20 01/21/22 10/29/21 History methocarbamol 750 mg tablet 750 mg PO Q6H PRN Muscle Spasm 09/19/21 01/18/22 10/29/21 History tamsulosin 0.4 mg capsule (Flomax) 0.4 mg PO DAILY@0800 PRN urine 09/19/21 01/21/22 10/29/21 History retention hydrocodone 7.5 mg-acetaminophen 1 tab PO TID PRN Pain 10/29/21 01/21/22 01/21/22 History 325 mg tablet methenamine hippurate 1 gram 1 g PO BID 10/29/21 01/18/22 10/29/21 History tablet (Hiprex) sucralfate 1 gram tablet (Carafate) 1 g PO DAILY 10/29/21 01/21/22 01/20/22 History clonazepam 0.5 mg tablet (Klonopin) 0.5 mg PO DAILY PRN anxiety #30 11/13/21 01/21/22 01/20/22 20:00 Rx tabs fluoxetine 20 mg capsule (Prozac) 20 mg PO .morning #90 caps 11/13/21 01/21/22 01/21/22 Rx fluoxetine 40 mg capsule (Prozac) 40 mg PO QAM #90 caps 11/13/21 01/21/22 01/21/22 Rx mirtazapine 15 mg tablet (Remeron) 7.5 mg PO .9 pm #15 tabs 11/13/21 01/21/22 Unknown Rx ondansetron 4 mg disintegrating 4 mg PO Q8H PRN nausea and 01/02/22 01/21/22 Unknown Rx tablet vomiting #15 tabs Allergies Allergy/AdvReac Type Severity Reaction Status Date / Time cefaclor [From [facility]] Allergy Unknown Unknown--diagnosed Verified 01/21/22 08:41 with allergy testing Penicillins Allergy Unknown Hives---can Verified 01/21/22 08:41 take Keflex and amoxicillin Sulfa (Sulfonamide Allergy Unknown hives Verified 01/21/22 08:41 Antibiotics) zolpidem [From Ambien] AdvReac hallucinations Verified 01/21/22 08:41 and nightmares PFSH Anesthesia Medical History Chronic post-traumatic stress disorder History of eating disorder Major depressive disorder, recurrent severe without psychotic features Nicotine dependence, cigarettes, uncomplicated No pertinent past medical history Denies diabetes, hypertension, seizures, DVT/PE PCP: Dr. Summers Panic disorder Psychiatric care Recurrent UTI Surgical History H/O ureter repair History of back surgery 2020--T12 and L1 History of colonoscopy (~2015) History of esophagogastroduodenoscopy (EGD) (~11/2019) History of laparoscopic cholecystectomy S/P tonsillectomy S/P tubal ligation laparoscopic procedure, performed in 2014 Family History Mother Chronic kidney disease (CKD) Stroke Ovarian cancer diagnosed at age 32 or 33 Grandfather No problems noted. Grandmother Diabetes paternal Ovarian cancer maternal, age at diagnosis unknown Father Hyperlipidemia Stroke Family/Other Ovarian cancer maternal aunt, age age at diagnosis unknown Denies family history of Colon cancer Heart disease Hypertension Uterine cancer Thyroid condition Social History Smoking and tobacco status: current every day smoker cigarettes Packs smoked per day: 1 Alcohol intake: never Marital status: Current occupational status: unemployed History of recent travel: No Female Reproductive History Date of last menstrual period: 01/09/22 Data Anesthesia Cardiac Studies: No Data to Display
[2022-01-22] VITALS (47 sets, daily range): BP systolic 54–127; BP diastolic 32–87; PULSE 59–120; RESP 0–25; TEMP 36.2–37.7; O2SAT 96–100
[2022-01-22 08:48] LABS: OR HCG Qualitative Urine Negative (Negative)
--- NOTE | 2022-01-22 08:58 | P.ANESUD_ITS ---
Pre-Anesthetic Update Pre-Anesthetic Assessment: Date of Surgery/Procedure: 01/22/22 Preop Christi gnosis: uterine prolapse, aub Proposed Procedure: Operation Date: 01/22/22 09:50 Proposed Procedures p Laparoscopic assisted vaginal hysterectomy, bilateral salpingectomy 28861,N81.4(Not Applicable) - Maira Stephens MD s Laparoscopic Salpingectomy(Bilateral) - Maira Stephens MD Any changes to Pre-Anesthetic Assessment?: No Vitals: Temperature 98.8 F 01/22/22 08:56 Temperature Source Temporal Artery S can 01/22/22 08:56 Pulse Rate 89 01/22/22 08:56 Respiratory Rate 18 01/22/22 08:56 Blood Pressure 112/69 01/22/22 08:56 Blood Pressure Courtney n 83 01/22/22 08:56 Pulse Oximetry 100 01/22/22 08:56 Oxygen Delivery Me thod 01/22/22 08:56 Exam: Pre-Anes Outpt Exam: alert, oriented x 3, clear to auscultation bilaterally and regular rate & rhythm Cardiac Studies: No Data to Display
--- NOTE | 2022-01-22 09:07 | W.PM.OPSUD ---
Surgery/Procedure H&P Update DATE OF PROCEDURE: January 22, 2022 DATE H&P PERFORMED: 01/18/22 H&P UPDATE INFORMATION: I have reviewed H&P completed within last 30 days, I have examined patient prior to procedure and No changes to prior documentation PREOP DIAGNOSIS: uterine prolapse, aub PLANNED PROCEDURE: Operation Date: 01/22/22 09:50 Proposed Procedures p Laparoscopic assisted vaginal hysterectomy, bilateral salpingectomy 08849,N81.4(Not Applicable) - Maira Stephens MD s Laparoscopic Salpingectomy(Bilateral) - Maira Stephens MD Related Problem List Diagnoses (1) Uterine prolapse: (2) Abnormal uterine bleeding (AUB):
[2022-01-22] MEDS: acetaminophen 1,000 MG/100 ML PIGGYBACK 400 MG IV (09:13)
[2022-01-22] MEDS: CELEcoxib 200 mg Capsule 400 MG PO (09:13)
[2022-01-22] MEDS: gabapentin 300 mg Capsule PO (09:13)
[2022-01-22] MEDS: phenazopyridine 100 mg Tablet 200 MG PO ×3 (09:13→20:57)
[2022-01-22] MEDS: sodium chloride 0.9% 1,000 ML 30 ML IV (09:14)
[2022-01-22] MEDS: scopolamine 1.5 Patch 1 PATCH TRANSDERMA (09:14)
[2022-01-22] MEDS: ceFAZolin 2,000 MG in sodium chloride 0.9% (plus) 50 ML 100 MG IV (09:49)
[2022-01-22] MEDS: vasopressin 20 unit/mL INJ INJECTION (10:34)
--- NOTE | 2022-01-22 12:06 | PM.OP ---
Operative Report Date of procedure: January 22, 2022 Pre-op diagnosis: Preop Diagnosis uterine prolapse, aub Post-op diagnosis: same Post-op findings: 10 week sized uterus. Normal appearing uterus, tubes, ovaries Procedure done: LAVH, bilateral salpingectomy Specimens removed/disposition: uterus and bilateral fallopian tubes to pathology Surgeon: Maira Stephens Anesthesia: General Estimated blood loss (mL): 400 IV fluids (mL): 1,600 Urine output (mL): 150 Complications: none Condition: stable Disposition: PACU Procedure: The patient was taken to the operating room where general anesthesia was administered and found to be adequate. She was prepped and draped in the normal sterile fashion in the dorsal lithotomy position in [facility]. A Vasquez catheter was placed. A weighted speculum was placed into the vagina and the anterior lip of the cervix was grasped with a single tooth tenaculum. The Zumi uterine manipulator was placed. The weighted speculum was removed. The gloves were changed and attention was turned to the abdomen. A 5 mm supraumbilical incision was made. Using a 5 mm port with the camera, the port was placed into the abdomen. The abdomen was insufflated. Two low, lateral 5 mm ports were placed on the left and right under direct visualization from the camera. In spite of the left trocar placement area being illuminated and clear of vessels, there was some blood returned with placement of the trocar. There was no blood seen dripping into the abdominal cavity. The right tube was grasped and elevated. Using the laparoscopic cautery, the mesosalpinx was divided between the ovary and tube. The tube was removed. This was performed the same way on the left. The tube was left attached to the uterus on the left. The uteroovarian ligaments as well as the round ligaments were ligated. The left trocar sight was transilluminated and there was a small hematoma seen. Attention was then turned to the vaginal portion of the procedure. The weighted speculum was placed into the vagina. The zumi manipulator was removed. The single tooth tenaculum was removed and replaced with the gonzalez's tenaculum. 10 mL of dilute Pitressin was injected at the vesicovaginal junction. A circumferential incision was made at the vesicovaginal junction and the vaginal mucosa reflected cephalad. The posterior peritoneum was entered sharply with the Metzenbaum scissors and the long weighted speculum replaced. Using the Lalitha clamps the uterosacral ligaments were clamped cut and suture-ligated. The anterior peritoneum was entered sharply with the metzenbaum scissors. Then sequentially the uterine arteries and cardinal ligaments were clamped cut and suture-ligated. A single-tooth tenaculum was used to deliver the uterus. The remaining segement of the utero-ovarian ligaments were clamped cut and suture-ligated bilaterally and the specimen was removed. There was good hemostasis with only mild bleeding from the cuff. The peritoneum was closed with a pursestring using 2-0 Vicryl. The vaginal cuff was closed with 0 Vicryl in a running locked pattern incorporating the uterosacral ligaments into the lateral aspects of the vaginal cuff. The Vasquez catheter was removed and the cystoscope advanced into the bladder. The patient was given pyridium and bilateral spill was noted. There were no injuries or deficits noted in the bladder. The cystoscope was removed and the Vasquez was replaced. Vaginal packing was placed for good hemostasis. The gloves and gowns were changed and attention was turned to the abdomen. The abdomen was insufflated. The pelvis was suctioned irrigated and there was no active bleeding. The port was again transilluminated and the hematoma appeared to be the same size. There was no bleeding from any trocar sight after removal. The ports were closed with 2-0 monocryl with skin glue. The patient tolerated the procedure well. Sponge lap and needle counts were correct x3. She was taken to the recovery room in stable condition.
[2022-01-22] MEDS: fentaNYL 50 mcg/mL INJ 2mL IVP ×2 (12:30→12:43)
[2022-01-22] MEDS: ketorolac 30 mg/mL INJ IVP (12:58)
[2022-01-22] MEDS: HYDROmorphone 1 mg/mL INJ 1 mL 0.5 MG IVP (13:02)
--- NOTE | 2022-01-22 13:54 | PC.NURSE ---
PATIENT NOTED TO HAVE SMALL AMOUNT OF BRUISING LEFT LOWER ABDOMINAL SURGICAL PUNCTURE WHEN TRANSFERRED TO OB BED. OB NURSE MARKING AREA.
[2022-01-22] MEDS: dextrose 5%-lactated ringers 1,000 ML 125 ML IV (15:13)
--- NOTE | 2022-01-22 15:22 | PC.NURSE ---
Hat Lining Paster in room after assuming care of patient. Patient noted to be hypotensive but had been to this nurse that patient was hypotensive and had been in the OR as well. Patient is alert and oriented x3. Patient responds appropriately. Patient reports her pain is a 6/10 but rests easily after, FLACC 3. Patient's and daughter at bedside. Patient noted to have some bruising around incision on left abdomen and around top incision.
[2022-01-22 16:22] LABS: Basophils % 0.1 %; Hematocrit 23.5 % (37.0-47.0); Hemoglobin 7.6 g/dL (11.5-15.3); Lymphocytes # 0.6 10^3/uL (0.8-4.8); Lymphocytes % 6.4 %; Mean Corpuscular HGB Conc 32.3 g/dL (30.0-36.0); Mean Corpuscular Hemoglobin 32.3 pg (28.0-34.0); Mean Platelet Volume 10.2 fL (7.4-10.4); Monocytes # 0.1 10^3/uL (0.2-0.9); Neutrophils # 9.23 10^3/uL (1.8-7.7); Neutrophils % 92.1 %; Nucleated Red Blood Cells % 0 %; Platelet Count 202 10^3/cmm (130-400); Red Blood Count 2.35 10^6/uL (4.1-5.3); Red Cell Distribution Width 12.9 % (12.1-15.1)
--- NOTE | 2022-01-22 16:27 | ANE.PACU2 ---
Inpatient post-anesthesia follow up: Airway intact: Yes Vital signs: Temperature 97.1 F Pulse Rate 61 Respiratory Rate 18 Blood Pressure 99/59 Pulse Oximetry 99 Oxygen Delivery Me thod Room Air Oxygen Flow Rate 8 Fraction of Inspir ed Oxygen Hydration adequate: Yes Nausea and vomiting: No Pain level: 1 Mental status: Baseline
--- NOTE | 2022-01-22 16:28 | CTR_ITS ---
PROCEDURE INFORMATION: Exam: CT Abdomen And Pelvis With Contrast Exam date and time: 01/22/2022 5:04 PM Age: 31 years old Clinical indication: Abdominal pain; Prior surgery; Surgery date: Post-operative (0-2 days); Surgery type: Hysterectomy; Additional info: Pain, hypotension TECHNIQUE: Imaging protocol: Computed tomography of the abdomen and pelvis with contrast. Radiation optimization: All CT scans at this facility use at least one of these dose optimization techniques: automated exposure control; mA and/or kV adjustment per patient size (includes targeted exams where dose is matched to clinical indication); or iterative reconstruction. Contrast material: OMNI 350; Contrast volume: 100 ml; Contrast route: INTRAVENOUS (IV); COMPARISON: CT abdomen pelvis w con* [id number] 01/23/2016 10:09 AM RADIATION DOSE METRICS: Total DLP (mGy-cm): 446.84 FINDINGS: Lungs: Mild atelectasis versus fibrosis noted at the lung bases. Liver: Unremarkable. No mass. Gallbladder and bile ducts: Cholecystectomy. No ductal dilation. Pancreas: Unremarkable. No ductal dilation. Spleen: Unremarkable. No splenomegaly. Adrenal glands: Unremarkable. No mass. Kidneys and ureters: Unremarkable. No hydronephrosis. No solid mass. Stomach and bowel: No acute gastric abnormality demonstrated. The small bowel is unremarkable as demonstrated. No acute abnormality/inflammatory change of the colon. Appendix: No evidence of appendicitis. Intraperitoneal space: Large volume of ascites in the abdomen and pelvis. No loculated fluid collection. The presumed hematoma measures approximately 3 x 10 cm on the right side of the abdomen and pelvis, and 11 x 5 cm on the left side of the abdomen and pelvis. No extravasation of contrast to suggest active bleeding. Vasculature: The aorta is unremarkable as demonstrated. Lymph nodes: No pathologically enlarged lymph nodes are demonstrated. Urinary bladder: There is a Vasquez catheter in the urinary bladder. No acute abnormality of the urinary bladder noted. Reproductive: Status post hysterectomy. Air and blood products are seen in the vaginal canal. Bones/joints: Postop change of the spine noted. Soft tissues: Nonspecific subcutaneous edema and air noted in the midline of the anterior abdominal wall. A punctate foci of air are seen just deep to the right rectus muscle, and in the bilateral extraperitoneal inguinal areas. These likely represent postop changes. Slightly hyperdense soft tissue demonstrated in the mesentery, extending into the extraperitoneal space of the pelvis, consistent with postop hematoma. CT/CT abdomen pelvis w con* [id number] IMPRESSION: 1. Status post hysterectomy. Postop changes in the anterior abdominal wall are present, as noted above. 2. Large volume of hyperdense soft tissue demonstrated in the mesentery, extending into the extraperitoneal space of the pelvis, consistent with postop hematoma, with approximate measurements given above. No evidence of active bleeding demonstrated. 3. Additional large volume of nonhemorrhagic ascites demonstrated in the abdomen and pelvis.
[2022-01-22] MEDS: dextrose 5%-lactated ringers 1,000 ML 999 ML IV (16:50)
--- NOTE | 2022-01-22 17:00 | PC.NURSE ---
When patient placed on CT table patient lost consciousness for less than 10 seconds. Patient came to and responded to verbal commands. Patient continued to state she doesn't feel well, she hurts so bad, and she's dizzy. Patient continued to become more uncomfortable on CT table.
--- NOTE | 2022-01-22 17:00 | PC.NURSE ---
Several vital signs noted on machine in patient room not documented in chart. Physical Science Professor documented vitals that occurred prior to assuming care at 1515.
[2022-01-22] MEDS: iohexol 350 mg/mL 500 mL Btl (per mL) IV (17:08)
--- NOTE | 2022-01-22 17:34 | PC.NURSE ---
pt off floor to OR, supervisor weaving and pt RN wheeling pt to OR at this time
--- NOTE | 2022-01-22 17:50 | P.ANESUD_ITS ---
Pre-Anesthetic Update Pre-Anesthetic Assessment: Date of Surgery/Procedure: 01/22/22 Preop Christi gnosis: uterine prolapse, aub Proposed Procedure: Operation Date: 01/22/22 09:50 Proposed Procedures p Laparoscopic assisted vaginal hysterectomy, bilateral salpingectomy 52326,N81.4(Not Applicable) - Maira Stephens MD s Laparoscopic Salpingectomy(Bilateral) - Maira Stephens MD Operation Date: 01/22/22 18:00 Proposed Procedures p Exploratory Laparotomy(Not Applicable) - Maira Stephens MD Any changes to Pre-Anesthetic Assessment?: Yes Changes from Pre-Anesthetic Assessment: Emergent bleed Last Intake: Intake Last Liquid Date 01/21/22 Last Liquid Time 22:00 Last Solid Date 01/21/22 Last Solid Time 22:00 Labs Last 48hrs: Short CBC 01/22/22 Range/Units 16:00 WBC 10.0 (4.0-10.0) 10^3/ uL Hgb 7.6 L (11.5-15.3) g/dL Hct 23.5 L (37.0-47.0) % MCV 100.0 H (81-99) fl Plt Count 202 (130-400) 10^3/c mm Neut % (Auto) 92.1 % Neut # (Auto) 9.23 H (1.8-7.7) 10^3/u L Blood Bank 01/22/22 08:49 Blood Type A Positive Rho(D) Type Positive Antibody Screen Negative Vitals: Temperature 98.7 F 01/22/22 14:20 Temperature Source Oral 01/22/22 14:20 Pulse Rate 73 01/22/22 17:20 Respiratory Rate 14 01/22/22 17:20 Respiratory Effort 01/22/22 13:02 Respiratory Depth Normal 01/22/22 13:02 Respiratory Patter n 01/22/22 13:02 Blood Pressure 90/58 01/22/22 17:20 Blood Pressure Courtney n 68 01/22/22 17:20 Pulse Oximetry 100 01/22/22 17:20 Oxygen Delivery Me thod 01/22/22 17:20 Oxygen Flow Rate 8 01/22/22 12:30 Exam: Pre-Anes Outpt Exam: alert, oriented x 3, clear to auscultation bilaterally and regular rate & rhythm Cardiac Studies: No Data to Display
--- NOTE | 2022-01-22 18:21 | PC.NURSE ---
Dr. Stephens to room at 1722. informed patient she would need to return to OR for fluid in abdomen. Consent signed. Dr. Stephens also requests patient be given two units of blood. Orders put in per her request. Patient continues to be lethargic and reports not feeling well. Discussed vitals with Dr. Stephens from admission to current set. Orders received to continue bolusing fluids until we go to OR. Cathei RN and Jennifer RN at bedside attempting to get second IV started.
--- NOTE | 2022-01-22 19:52 | P.OP_ITS ---
Operative Report Date of procedure: January 22, 2022 Pre-op diagnosis: Preop Diagnosis uterine prolapse, aub Preop Diagnosis postopertive bleeding Post-op diagnosis: same Post-op findings: 2 liters of blood in the abdomen and pelvis. Posterior peritoneum was torn and active bleeding from the cuff. No other bleeding source found. Procedure done: exploratory laparotomy with repair of torn cuff. Examination of surgery site with copious irrigation Specimens removed/disposition: none Surgeon: Maira Stephens Signal Apprentice: Kathy Monzon Anesthesia: General Estimated blood loss (mL): 2,000 IV fluids (mL): 2,200 IV fluids: 2200 crystaloid 100 of albumen 4 units of PRBC's Urine output (mL): 500 Complications: none Findings: Torn posterior peritoneum with active bleeding from the posterior vaginal cuff. No other bleeding found Condition: stable Disposition: ICU Brief History: I was called by the nurse for a sudden low blood pressure. A stat cbc was draw n, that showed the hemoglobin had gone from 13.6 [address] A stat CT was performed that showed blood in the abdomen. Blood was immediately ordered and she was taken emergently for surgery. Procedure: The patient was taken to the operating room where general anesthesia was administered and found to be adequate. She was prepped and draped in the normal sterile fashion in the dorsal supine position. A arias catheter was previously placed during her earlier surgery. A Pfannenstiel skin incision was made and carried down to the underlying layer of fascia. The fascia was nicked in the midline and extended laterally with the Wang scissors. The fascia was then tented up and the rectus muscles dissected off sharply. The rectus muscles were in the midline and the abdomen entered bluntly with the digit. Blood immediately emerged from the abdomen. It was immediately suctionedto determinethe source of the bleeding. The peritoneal incision was then extended superiorly and inferiorly with good visualization of the bladder. The O'Doc- O'Marrero retractor was placed and the bowel packed away. The cuff was isolated and a piece of the posterior peritoneum appeared to be torn and there was bleeding coming from this area of the vaginal cuff. The area of active bleeding was closed and oversewn. There was good hemostasis post repair. The pelvis was vigorously irrigated and suctioned. All clots were removed. One last inspection revealed that there was no active bleeding. Surgicel was placed over the cuff. The O'Doc-O'Marrero retractor as well as the packing was removed. The peritoneum was closed with 3-0 Monocryl in a running fashion. The fascia was closed with 0 Vicryl in a running fashion with 2 separate sutures overlapping in the midline. The skin was closed with absorbable michael. The patient tolerated the procedure well. Sponge lap and needle counts were correct x2. She was taken to the recovery room in stable condition. She will go to the ICU for the night for close observation.
[2022-01-22] MEDS: docusate sodium 100 mg Capsule PO (20:56)
[2022-01-22] MEDS: CLONazepam 0.5 mg Tablet PO (20:57)
[2022-01-22] MEDS: HYDROcodone-acetaminophen 5-325 mg Tablet PO (20:57)
[2022-01-22] MEDS: sucralfate 1 gm Tablet PO (20:57)
[2022-01-22] MEDS: sodium chloride 0.9% (100 ml) 100 ML 150 ML (20:58)
[2022-01-22] MEDS: HYDROmorphone 1 mg/mL INJ 1 mL 1.5 MG IVP (22:20)
[2022-01-22 22:44] LABS: Hemoglobin 11.8 g/dL (11.5-15.3)
[2022-01-22 22:45] LABS: Hematocrit 35.5 % (37.0-47.0)
[2022-01-22 22:48] LABS: INR 1.44 (0.8-1.2); Partial Thromboplastin Time 22.9 SECONDS (23.9-36.7)
[2022-01-23] VITALS (29 sets, daily range): BP systolic 94–115; BP diastolic 52–69; PULSE 58–80; RESP 5–26; TEMP 37.1–37.6; O2SAT 99–100
[2022-01-23] MEDS: ketorolac 30 mg/mL INJ IVP ×2 (00:15→05:51)
--- NOTE | 2022-01-23 00:27 | PM.CONSULT ---
Providers/Reason For Consult Consulting Physician/Specialty*: Blessing Han MD/Hospitalist Reason for Consult*: Post op bleeding, ICU monitoring Requesting Physician: Maira Stephens MD Attending Physician: Maira Stephens MD Primary Care Provider: Mattie Summers DO History of Present Illness History of Present Illness Saranya Maya is a 31 year old female who underwent laparoscopic-assisted vaginal hysterectomy and bilateral salpingectomy for a diagnosis of abnormal uterine bleeding and uterine prolapse earlier on 01/22/2022. Postop course was complicated by hypotension with blood pressure dropping to a low of 54/32 mmHg at ~3:30 PM. Associated was a hemoglobin drop from 13 to [address] showed blood in the abdomen. She was taken back to the OR for exploratory laparotomy and was found to have 2 L of blood in the abdomen and pelvis with a tear in the posterior peritoneum and an active bleeding from the cuff. No other bleeding source was found. Torn cuff was repaired. She was brought back into the ICU for close monitoring overnight. She is currently status post 4 units of packed red blood cell transfusion and has received 2 units FFP. Most recent hemoglobin is at 11.8, up from 7.6 at 4 PM today. Currently she is hemodynamically stable. Blood pressure 118/72 mmHg. Heart rate 66. T-max is 99.1 Fahrenheit, likely a combination of blood transfusion, postoperative state. Hospitalist service is consulted for assistance with ICU monitoring. Review of Systems General: Reports: 10 or more systems reviewed and unremarkable except in HPI and below Const: Denies: fever(s), chills or body aches Eyes: Denies: change in vision, blurry vision or photophobia ENMT: Reports: hoarseness; Denies: throat pain, enlarged tonsils, odynophagia or nasal congestion Card: Denies: chest pain, palpitations, irregular heart rhythm, edema, swelling of feet/ankles, lightheadedness, pre-syncope, dyspnea on exertion or orthopnea Resp: Denies: dyspnea, productive cough, non-productive cough, wheezing, stridor, pain on inspiration, change in phlegm color, hemoptysis or chest congestion GI: Denies: abdominal pain, nausea, vomiting, hematemesis, coffee ground emesis, dysphagia, heartburn, diarrhea, constipation, GI cramping, change in stool character, hematochezia or melena : Denies: flank pain, difficulty voiding, dysuria, urinary frequency, urinary urgency, urinary hesitancy or hematuria Musc: Denies: neck pain, back pain, extremity pain, joint swelling, joint warmth or deformity Neuro: Denies: headache(s), numbness in extremities, weakness in extremities, sensory changes, difficulty walking, frequent falls, dizziness, vertigo, behavioral changes, Slurred speech present or seizure-like activity Psych: Denies: anxiety, depression, suicidal ideation or homicidal ideation Endo: Denies: polyuria, polydipsia, tired all the time, cold intolerance or hot flashes Isaac/Lymph: Denies: easy bruising or easy bleeding Medications/Allergies Home Medications Medication Instructions Recorded Confirmed Last Taken Type pantoprazole 40 mg tablet,delayed 40 mg PO DAILY@0800 03/08/20 01/22/22 01/21/22 History release tizanidine 4 mg capsule (Zanaflex) 4 mg PO Q6H PRN Spasms 06/15/20 01/22/22 01/21/22 History methocarbamol 750 mg tablet 750 mg PO Q6H PRN Muscle Spasm 09/19/21 01/18/22 10/29/21 History tamsulosin 0.4 mg capsule (Flomax) 0.4 mg PO DAILY@0800 PRN urine 09/19/21 01/21/22 10/29/21 History retention hydrocodone 7.5 mg-acetaminophen 1 tab PO TID PRN Pain 10/29/21 01/22/22 01/22/22 History 325 mg tablet methenamine hippurate 1 gram 1 g PO BID 10/29/21 01/18/22 10/29/21 History tablet (Hiprex) sucralfate 1 gram tablet (Carafate) 1 g PO DAILY 10/29/21 01/21/22 01/20/22 History clonazepam 0.5 mg tablet (Klonopin) 0.5 mg PO DAILY PRN anxiety #30 11/13/21 01/22/22 01/21/22 Rx tabs fluoxetine 20 mg capsule (Prozac) 20 mg PO .morning #90 caps 11/13/21 01/21/22 01/21/22 Rx fluoxetine 40 mg capsule (Prozac) 40 mg PO QAM #90 caps 11/13/21 01/21/22 01/21/22 Rx mirtazapine 15 mg tablet (Remeron) 7.5 mg PO .9 pm #15 tabs 11/13/21 01/22/22 Unknown Rx ondansetron 4 mg disintegrating 4 mg PO Q8H PRN nausea and 01/02/22 01/21/22 Unknown Rx tablet vomiting #15 tabs Allergies Allergy/AdvReac Type Severity Reaction Status Date / Time cefaclor [From Counts Include [facility]] Allergy Unknown Unknown--diagnosed Verified 01/21/22 08:41 with allergy testing Penicillins Allergy Unknown Hives---can Verified 01/21/22 08:41 take Keflex and amoxicillin Sulfa (Sulfonamide Allergy Unknown hives Verified 01/21/22 08:41 Antibiotics) zolpidem [From Ambien] AdvReac hallucinations Verified 01/21/22 08:41 and nightmares Current Medications Generic Name Dose Route Start Last Admin Trade Name Freq PRN Reason Stop Dose Admin Hydrocodone Bitart/Acetaminophen 1 - 2 tab 01/22/22 12:14 01/22/22 20:57 Hydrocodone-Acetaminophen 5-325 Mg Tablet PO 1 tab Q6H PRN Administration MODERATE TO SEVERE PAIN Clonazepam 0.5 mg 01/22/22 13:54 01/22/22 20:57 Clonazepam 0.5 Mg Tablet PO 0.5 mg DAILY PRN Administration anxiety Docusate Sodium 100 mg 01/22/22 18:00 01/22/22 20:56 Docusate Sodium 100 Mg Capsule PO 100 mg BID BLAKE Administration Hydromorphone HCl 1.5 mg 01/22/22 12:14 01/22/22 22:20 Hydromorphone 1 Mg/Ml Inj 1 Ml IVP 1.5 mg Q3H PRN Administration BREAKTHROUGH PAIN Sodium Chloride 1,000 mls @ 30 mls/hr 01/22/22 08:30 01/22/22 09:14 Sodium Chloride 0.9% IV 01/23/22 08:29 30 mls/hr .Q24H BLAKE Administration Dextrose/Lactated Ringer's 1,000 mls @ 125 mls/hr 01/22/22 12:15 01/22/22 16:50 Dextrose 5%-Lactated Ringers IV 999 mls/hr .Q8H BLAKE Administration Ketorolac Tromethamine 30 mg 01/22/22 12:15 01/23/22 00:15 Ketorolac 30 Mg/Ml Inj IVP 01/23/22 06:16 30 mg Q6H BLAKE Administration Mirtazapine 7.5 mg 01/22/22 21:00 01/22/22 20:51 Mirtazapine 15 Mg Tablet PO Not Given 2100 BLAKE Non-Formulary Medication 1 gm 01/22/22 18:00 01/22/22 20:45 Methenamine Hippurate [Hiprex] PO Not Given BID BLAKE Phenazopyridine HCl 200 mg 01/22/22 15:00 01/22/22 20:57 Phenazopyridine 100 Mg Tablet PO 200 mg TID BLAKE Administration Sucralfate 1 gm 01/22/22 18:00 01/22/22 20:57 Sucralfate 1 Gm Tablet PO 1 gm BID BLAKE Administration PFSH Acute PFSH: Medical History Chronic post-traumatic stress disorder History of eating disorder Major depressive disorder, recurrent severe without psychotic features Nicotine dependence, cigarettes, uncomplicated No pertinent past medical history Denies diabetes, hypertension, seizures, DVT/PE PCP: Dr. Summers Panic disorder Psychiatric care Recurrent UTI Surgical History H/O ureter repair History of back surgery 2020--T12 and L1 History of colonoscopy (~2015) History of esophagogastroduodenoscopy (EGD) (~11/2019) History of laparoscopic cholecystectomy S/P tonsillectomy S/P tubal ligation laparoscopic procedure, performed in 2014 Family History Mother Chronic kidney disease (CKD) Stroke Ovarian cancer diagnosed at age 32 or 32 Grandfather No problems noted. Grandmother Diabetes paternal Ovarian cancer maternal, age at diagnosis unknown Father Hyperlipidemia Stroke Family/Other Ovarian cancer maternal aunt, age age at diagnosis unknown Denies family history of Colon cancer Heart disease Hypertension Uterine cancer Thyroid condition Social History Smoking and tobacco status: current every day smoker cigarettes Packs smoked per day: 1 Alcohol intake: never Marital status: Current occupational status: unemployed History of recent travel: No Female Reproductive History: Date of last menstrual period: 01/09/22 Vitals/I&O/Wt Last Vital Signs Temp 99.9 F H 01/22/22 23:45 Pulse 66 01/22/22 23:45 Resp 14 01/22/22 23:45 BP 118/72 01/22/22 23:45 Pulse Ox 100 01/22/22 23:45 O2 Del Method 01/22/22 22:19 O2 Flow Rate 3 01/22/22 20:15 01/22/22 01/22/22 01/23/22 14:59 22:59 06:59 Intake Total 1950 / 1950 2689.55 / 4639.55 Output Total 800 / 800 700 / 1500 Balance 1150 / 1150 1989.55 / 3139.55 Physical Exam Narrative: General: No acute distress, AO x3 HEENT: PERRLA, pupils bilaterally equal and reactive, pallors not present Chest: Normal vesicular breath sounds, no added sounds, equal good air entry bilaterally CVS: S1-S2 regular, no murmurs, no tachycardia, no gallops, no rubs Abdomen: Soft, nontender, no organomegaly, bowel sounds present Neuro: No focal deficits, no facial deformity, AO x3, power 5/5 in all limbs Urinary Catheter Management: Vasquez: Cath Placed During This Visit: yes Urinary Catheter Date of Insertion: 01/22/22 Urinary Catheter Time of Insertion: 10:20 Data 01/22/22 22:11 A&P Assessment and plan (1) Acute blood loss anemia: Patient admitted for [facility] earlier today, course complicated by abdominal bleeding from cuff tear in the posterior peritoneum. Now status post exploratory lap and cuff repair. Patient was initially hypotensive and anemic with hemoglobin dropped from 13-7.6. Taken back to the OR for cuff repair. Currently hemodynamically stable Status post 4 packed red blood cell transfusion and 2 FFP transfusion. No adverse events with blood transfusion. Most recent hemoglobin stabilized at 11.8. Will be rechecked again in 6 hours. Currently hemodynamically stable, will follow along for any other acute interim events. Further orders , if any will be based on clinical course Consult Attestations Medical Necessity Statement: per admitting note Coding Level of Care Code Acute Auto Body Repairer for carlie Arnold Diagnoses Acute blood loss anemia D62
--- NOTE | 2022-01-23 00:57 | PC.NURSE ---
2130 upon entering room after FFP infusion initiated, IV line was never connected to patient; Dr. Stephens notified of error and informed that only approximately half of patient's first unit of FFP was given, instructed to order PTT and PT/INR with patient's previously ordered timed H & H
[2022-01-23] MEDS: dextrose 5%-lactated ringers 1,000 ML 999 ML IV (01:12)
[2022-01-23] MEDS: ceFAZolin 2,000 MG in sodium chloride 0.9% (plus) 50 ML 100 MG IV ×2 (01:13→10:12)
[2022-01-23] MEDS: HYDROcodone-acetaminophen 5-325 mg Tablet PO ×2 (03:07→10:13)
[2022-01-23] MEDS: fluoxetine 20 mg Capsule 60 MG PO (05:50)
[2022-01-23 07:10] LABS: Hematocrit 25.9 % (37.0-47.0); Hemoglobin 9.1 g/dL (11.5-15.3); Mean Corpuscular HGB Conc 35.1 g/dL (30.0-36.0); Mean Corpuscular Hemoglobin 30.4 pg (28.0-34.0); Mean Corpuscular Volume 86.6 fl (81-99); Mean Platelet Volume 10.9 fL (7.4-10.4); Platelet Count 91 10^3/cmm (130-400); Red Blood Count 2.99 10^6/uL (4.1-5.3); Red Cell Distribution Width 16.1 % (12.1-15.1); White Blood Count 5.9 10^3/uL (4.0-10.0)
[2022-01-23 07:42] LABS: INR 1.25 (0.8-1.2); Partial Thromboplastin Time 21.7 SECONDS (23.9-36.7)
[2022-01-23] MEDS: HYDROmorphone 1 mg/mL INJ 1 mL 1.5 MG IVP ×2 (08:01→15:46)
[2022-01-23] MEDS: phenazopyridine 100 mg Tablet 200 MG PO ×3 (08:05→21:34)
[2022-01-23] MEDS: sucralfate 1 gm Tablet PO ×2 (08:05→17:46)
[2022-01-23] MEDS: docusate sodium 100 mg Capsule PO ×2 (08:05→17:45)
--- NOTE | 2022-01-23 11:05 | XR_ITS ---
WS: [id number] Exam: XR acute abdomen series [id number] Date/Time of Exam: 01/23/2022 1:04 PM Reason For Exam: Follow up assessment, hypoactive bowel sounds AP chest compared to prior study 01/23/2016. The lungs are clear and fully expanded. Normal cardiomediastinal silhouette. Regional bony elements a re intact. Flat and erect abdomen. No bowel obstruction or free air. Scattered gas in both large and small bowel loops suggesting mild ileus. There is gas in the rectosigmoid colon. No free air. Signs of prior cho lecystectomy. No organ enlargement. Spinal fusion noted at the T12-L1 level with the pedicle screws a nd posterior rods. Remaining bony structures are unremarkable. XR/XR acute abdomen series [id number] IMPRESSION: 1. No acute cardiopulmonary finding. 2. Mild ileus. No acute abdominal process noted at this time.
--- NOTE | 2022-01-23 11:28 | P.PN_ITS ---
Vitals/I&O/Wt Last Vital Signs Temp 99.7 F H 01/23/22 04:00 Pulse 73 01/23/22 11:22 Resp 15 01/23/22 11:22 BP 102/64 01/23/22 06:00 Pulse Ox 100 01/23/22 11:22 O2 Del Method 01/23/22 11:22 O2 Flow Rate 3 01/22/22 20:15 01/22/22 01/23/22 01/23/22 22:59 06:59 14:59 Intake Total 3689.55 / 5639.55 1941 / 7580.55 450 / 450 Output Total 700 / 1500 1150 / 2650 1700 / 1700 Balance 2989.55 / 4139.55 791 / 4930.55 -1250 / -1250 Weight last 48 hrs Weight 152 lb 11.2 oz Physical Exam Narrative: The patient was monitored in the ICU overnight. Her vitals have remained stable. Directly after her transfusion, her Hgb was 11.8 and this morning it was 9.1. Her coags are trending down. Her platelets are low at 91. She feels ok. She is having pain from her incision. She has had good urine out put. Const: COMMON NORMALS: no acute distress, average body habitus, patient oriented x3, no limitations, healthy appearing, alert and well nourished GENERAL APPEARANCE: cooperative, comfortable, well kempt and well developed ORIENTATION/CONSCIOUSNESS: Yes awake, Yes oriented to person, Yes oriented to place and Yes oriented to time Resp: COMMON NORMALS: normal respiratory effort EFFORT & INSPECTION: Yes able to speak in complete sentences GI: COMMON NORMALS: Soft to palpation and non-tender PALPATION: Yes Soft to palpation : OTHER: packing removed Extremity: COMMON NORMALS: no calf tenderness Neuro: COMMON NORMALS: patient oriented x3 SENSORIUM/ORIENTATION: Yes alert, Yes oriented to person, Yes oriented to place and Yes oriented to time Psych: APPEARANCE: Yes well kempt Urinary Catheter Management: Vasquez: Cath Placed During This Visit: yes Reason for Continuing Indwelling Catheter: Accurate Measurement of Urinary Output in Critically Ill Patients Urinary Catheter Date of Insertion: 01/22/22 Urinary Catheter Time of Insertion: 10:20 Data 01/23/22 06:23 Micro: Microbiology 01/22/22 10:21 Urine Culture - Preliminary Urine Catheterized A&P Assessment and plan (1) Acute blood loss anemia: The patient is stable today monitoring hemoglobin and coags every 6 hours change pain medication to oxycodone encourage ambulation to help with gas pain Plan to transfer back to OB when able Attestations Medical Necessity Statement*: The patient will be here for at least 2 nights Coding Level of Care Code Acute Files Supervisor for Treasure Arnold Diagnoses Acute blood loss anemia D62
--- NOTE | 2022-01-23 11:33 | PC.CHAP ---
Pastoral Care Encounter/Spiritual Assessment Type of Contact [] Declined journeyman level acoustic analyst visit [] Patient/Family/Request visit [] Outpatient visit [] Follow-up visit [] Physician referral [] Code/Alert [x] Routine visit [] Staff referral [] Actively dying [x] Patient sleeping [] Family support [] [] Out of room [] Palliative care [] [] Receiving care in room [] Pre-surgical visit [] Trauma [] Long length of stay [x] ICU visit [] Other: Relational/Emotional Strength [] Patient feels connected with others/family/visitors/staff [] Distress [] Loneliness/isolation [] Abandonment Spirituality of Patient [] Person of Magaly [] Attends Yazidi of their [place] [] Believes in Prayer [] Reads Bible or Sikh materials [] There are Spiritual issues to be addressed Operations Intelligence Interventions [x] Prayer [] Active listening [] Non-anxious presence [] Spiritual/emotional support [] Crisis/trauma care [] Spiritual counseling [] Bereavement support [] Provided bereavement packet [] Provided Bible/devotional materials [] Provided toy/stuffed animal, coloring book to patient or family member [] Provided Communion [] Anointing/[place] [] Salvation [x] Completed spiritual assessment [] Other: Impact on Illness or Injury [] Angry [] Fearful [] Anxious [] Often cries [] Exhaustion [] Unable to work [] Unable to attend pentecostalism [] Unable to walk/stand [] Unable to read [] Unable to drive [] Unable to eat/drink [] Unable to sleep [] Unable to be with family [] Patient intubated [] Other: Summary Time spent with patient
--- NOTE | 2022-01-23 11:58 | ECG_ITS ---
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 Measurements Intervals [place] Rate: 84 P: 66 SD: 145 QRS: 62 QRSD: 101 T: 51 QT: 352 QTc: 416 Interpretive Statements SINUS RHYTHM WITH SINUS ARRHYTHMIA No previous ECG available for comparison Electronically Signed On 01-25-2022 6:35:51 FACILITY TECHNICIAN by Des Gregory M.D. [email or web address]
[2022-01-23] MEDS: ibuprofen 800 mg tablet PO ×2 (13:00→20:24)
[2022-01-23] MEDS: oxyCODONE-APAP 5-325 mg Tablet PO ×3 (13:04→21:34)
[2022-01-23 13:11] LABS: Basophils % 0.2 %; Eosinophils # 0.1 10^3/uL (0.0-0.8); Eosinophils % 1.4 %; Hematocrit 29.6 % (37.0-47.0); Lymphocytes # 1.7 10^3/uL (0.8-4.8); Mean Corpuscular HGB Conc 33.8 g/dL (30.0-36.0); Mean Corpuscular Hemoglobin 30.7 pg (28.0-34.0); Mean Corpuscular Volume 90.8 fl (81-99); Mean Platelet Volume 10.5 fL (7.4-10.4); Monocytes # 0.3 10^3/uL (0.2-0.9); Monocytes % 6.1 %; Neutrophils # 3.45 10^3/uL (1.8-7.7); Neutrophils % 62.1 %; Nucleated Red Blood Cells % 0 %; Platelet Count 98 10^3/cmm (130-400); Red Blood Count 3.26 10^6/uL (4.1-5.3); Red Cell Distribution Width 16.5 % (12.1-15.1); White Blood Count 5.6 10^3/uL (4.0-10.0)
[2022-01-23 13:18] LABS: INR 1.09 (0.8-1.2)
[2022-01-23 13:19] LABS: Partial Thromboplastin Time 27.3 SECONDS (23.9-36.7)
[2022-01-23 13:20] LABS: Fibrinogen 227 mg/dL (174-498)
[2022-01-23 13:21] LABS: Platelet Count 93 10^3/cmm (130-400)
[2022-01-23 13:27] LABS: Alanine Aminotransferase 10 U/L (0-33); Albumin Level 3.4 g/dL (3.5-5.2); Alkaline Phosphatase 34 U/L (35-105); Aspartate Amino Transferase 19 U/L (0-32); Blood Urea Nitrogen 6 mg/dL (6-20); Calcium 8.4 mg/dL (8.5-10.5); Carbon Dioxide 24 mmol/L (22-29); Chloride 107 mmol/L (98-107); Globulin 1.8 g/dL (1.3-4.6); Glucose 105 mg/dL (65-115); Iron 150 ug/dL (37-145); Osmolality Calculated 286 mOsm/kg (285-295); Sodium 139 mmol/L (136-145); Total Bilirubin 0.4 mg/dL (0.15-1.2); Total Protein 5.2 g/dL (6.6-8.7)
[2022-01-23 13:32] LABS: Anion Gap 11.7 (5-19); Potassium 3.7 mmol/L (3.5-5.1)
[2022-01-23 13:43] LABS: Vitamin B12 460 pg/mL (232-1245)
[2022-01-23 14:02] LABS: Folate Level 4.4 ng/mL (4.8-37.3)
[2022-01-23 14:07] LABS: Percent Saturation 96.1 % (20-50); Total Iron Binding Capacity 156 mcg/dl; Unsaturated Iron Binding 6 ug/dL (112-347)
--- NOTE | 2022-01-23 14:19 | P.PN_ITS ---
Subjective Subjective: On examination patient sitting up in bed. Complaining of abdominal pain. As per nurse patient has been getting her pain medications regularly. Complaining of mild nausea. Passing flatus occasionally. No bowel movements. Vasquez in place with mild hematuria. Vitals/I&O/Wt Last Vital Signs Temp 99.7 F H 01/23/22 04:00 Pulse 70 01/23/22 12:00 Resp 12 01/23/22 13:04 BP 96/63 01/23/22 12:00 Pulse Ox 100 01/23/22 13:04 O2 Del Method 01/23/22 12:00 O2 Flow Rate 3 01/22/22 20:15 01/22/22 01/23/22 01/23/22 22:59 06:59 14:59 Intake Total 3689.55 / 5639.55 1941 / 7580.55 870 / 870 Output Total 700 / 1500 1150 / 2650 2900 / 2900 Balance 2989.55 / 4139.55 791 / 4930.55 -2029 / -2029 Weight last 48 hrs Weight 69.264 kg Physical Exam Narrative: General: No acute distress, AO x3 HEENT: PERRLA, pupils bilaterally equal and reactive, pallors not present Chest: Normal vesicular breath sounds, no added sounds, equal good air entry bilaterally CVS: S1-S2 regular, no murmurs, no tachycardia, no gallops, no rubs Abdomen: Soft, nontender, no organomegaly, bowel sounds present Neuro: No focal deficits, no facial deformity, AO x3, power 5/5 in all limbs Urinary Catheter Management: Vasquez: Cath Placed During This Visit: yes Reason for Continuing Indwelling Catheter: Accurate Measurement of Urinary Output in Critically Ill Patients Urinary Catheter Date of Insertion: 01/22/22 Urinary Catheter Time of Insertion: 10:20 Data : 01/23/22 13:00 01/23/22 13:00 Micro: Microbiology 01/22/22 10:21 Urine Culture - Preliminary Urine Catheterized A&P Assessment and plan (1) Acute blood loss anemia: Check CTPost 4 unit of PRBC and 2 unit FFP. Hemoglobin stabilizing to 9. Repeat hemoglobin at noon. B. Check iron panel if able to add onto the first sample. Start on oral iron supplementation. (2) Postoperative anemia due to acute blood loss: (3) S/P hysterectomy with oophorectomy: Underwent laparoscopic which had to be done laparotomy secondary to acute blood loss and hypovolemic shock. Found to have 2 L of blood loss intra abdominally. Hemoglobin stable now. Vasquez catheter in place. Abdominal series to rule out ileus. Multiple small meals. Pain medication, anticoagulation, diet, physical therapy, antibiotics as per primary team. Incentive spirometry. (4) Gastritis and duodenitis: Protonix daily, Zofran as needed Plan Full code. Patient can be transferred out of ICU once okay with primary team. Attestations Medical Necessity Statement*: For above defined care. Time Spent in Patient Care: Greater than 35 minutes Coding Level of Care Code Acute Book Canvasser for [facility] Fwmirna Diagnoses Acute blood loss anemia D62 Postoperative anemia due to acute blood loss D62 S/P hysterectomy with oophorectomy Z90.710; Z90.721 Gastritis and duodenitis K29.90
[2022-01-23] MEDS: cyanocobalamin 1,000 mcg/mL SDV 1000 MCG IM (15:14)
--- NOTE | 2022-01-23 16:02 | PC.NURSE ---
[id number] preparing patient for transfer to OB room 07. Patient requested Diluauid before transferring stating pain 8/10 on scale. Dilaudid given see MAR. Patient transferred to OB room 07. Patient resting comfortably with nursing staff at bedside. Belongings with patient and paper chart left with staff at front office secretary.
[2022-01-23] MEDS: CLONazepam 0.5 mg Tablet PO (23:21)
[2022-01-24 01:56] VITALS: RESP 18
[2022-01-24] MEDS: oxyCODONE-APAP 5-325 mg Tablet PO ×2 (01:56→06:25)
[2022-01-24] MEDS: ibuprofen 800 mg tablet PO (04:23)
[2022-01-24 04:48] VITALS: BP 100/56; PULSE 77; RESP 16; TEMP 36.7; O2SAT 97
[2022-01-24 06:25] VITALS: RESP 19
[2022-01-24] MEDS: fluoxetine 20 mg Capsule 60 MG PO (06:25)
[2022-01-24 06:33] LABS: Basophils % 0.4 %; Eosinophils # 0.2 10^3/uL (0.0-0.8); Eosinophils % 2.9 %; Hematocrit 25.4 % (37.0-47.0); Hemoglobin 8.7 g/dL (11.5-15.3); Lymphocytes # 1.6 10^3/uL (0.8-4.8); Lymphocytes % 30.9 %; Mean Corpuscular HGB Conc 34.3 g/dL (30.0-36.0); Mean Corpuscular Hemoglobin 30.6 pg (28.0-34.0); Mean Corpuscular Volume 89.4 fl (81-99); Mean Platelet Volume 10.6 fL (7.4-10.4); Monocytes # 0.3 10^3/uL (0.2-0.9); Monocytes % 6.2 %; Neutrophils # 3.06 10^3/uL (1.8-7.7); Neutrophils % 59.2 %; Nucleated Red Blood Cells % 0 %; Platelet Count 103 10^3/cmm (130-400); Red Blood Count 2.84 10^6/uL (4.1-5.3); Red Cell Distribution Width 16.3 % (12.1-15.1); White Blood Count 5.2 10^3/uL (4.0-10.0)
[2022-01-24 07:15] VITALS: BP 100/63; PULSE 67; RESP 16; TEMP 36.8
--- NOTE | 2022-01-24 08:05 | P.DS_ITS ---
Discharge Providers Date of Admission: 01/23/22 15:07 Date of Discharge: January 24, 2022 Attending Provider at Admission: Maira Stephens MD Attending Provider at Discharge: Maira Stephens MD Primary Care Provider: Mattie Summers DO Diagnoses at Discharge Discharge Diagnosis (1) Acute blood loss anemia: Status: Acute (2) Postoperative anemia due to acute blood loss: Status: Acute (3) S/P hysterectomy with oophorectomy: Status: Acute (4) Gastritis and duodenitis: Status: Acute Reason for Visit Reason for Visit: N93.9 Hospital Course Hospital Course The patient was admitted for [facility]. She had a delayed postoperative bleed and was taken back to surgery. Her cuff had torn. It was repaired. She received four units of blood intraoperatively, as well as albumin and 3 units of FFP. She was observed overnight in the ICU. She had abnormal coags and low platelets initially, but they normalized at noon of postopday #1. Her hemoglobin was stable, as well. She was transferred back to labor and delivery. She was given a regular diet. She was able to ambulate and pain was well controlled. On postop day#2, she was ready for discharge. Her pain was well controlled. She was able to ambulate well and tolerating a regular diet. She was discharged home in stable condition. Physical Exam Narrative: The patient is doing well this morning. Her hemoglobin has decreased a little, but the patient is doing well. Her pain is well controlled with oxycodone. She is tolerating a regular diet and ambulating without any issues. Const: COMMON NORMALS: no acute distress, average body habitus, patient oriented x3, no limitations, healthy appearing, alert and well nourished GENERAL APPEARANCE: cooperative, comfortable, well kempt and well developed ORIENTATION/CONSCIOUSNESS: Yes awake, Yes oriented to person, Yes oriented to place and Yes oriented to time Resp: COMMON NORMALS: normal respiratory effort EFFORT & INSPECTION: Yes able to speak in complete sentences GI: COMMON NORMALS: Soft to palpation and non-tender PALPATION: Yes Soft to palpation Extremity: COMMON NORMALS: no calf tenderness Neuro: COMMON NORMALS: patient oriented x3 SENSORIUM/ORIENTATION: Yes alert, Yes oriented to person, Yes oriented to place and Yes oriented to time Psych: COMMON NORMALS: mental status grossly normal, Normal thought process present, cooperative, normal affect and speech normal APPEARANCE: Yes well kempt SPEECH: Yes normal speech THOUGHT PROCESS: Normal thought process pr esent Urinary Catheter Management: Vasquez: Cath Placed During This Visit: yes, but has since been removed by the nurse Reason for Continuing Indwelling Catheter: Accurate Measurement of Urinary Output in Critically Ill Patients Urinary Catheter Date of Insertion: 01/22/22 Urinary Catheter Time of Insertion: 10:20 Date Urinary Catheter Removed: 01/23/22 Time Urinary Catheter Discontinued: 17:30 Discharge Data Studies Completed and Pending Completed Studies During Hospitalization Category Date Time Status CT abdomen pelvis w con* [id number] Stat Cat Scan 01/22/22 16:28 Completed XR acute abdomen series [id number] Routine Exams 01/23/22 11:05 Completed Pending at discharge Category Date Time Status ABO/Rh Type Routine Lab 01/22/22 08:49 Results Complete Crossmatch Routine Lab 01/22/22 08:49 Results Frozen Plasma FZ <24 1st Cont Stat Lab 01/22/22 08:49 Results Leukocyte Reduced RBC Stat Lab 01/22/22 08:49 Results Type and Screen Routine Lab 01/21/22 08:49 Results Urine Culture Routine Lab 01/22/22 10:21 Results Pathology: Surgical [PTH] Routine Pth 01/22/22 11:03 Received Radiology Impressions Abdomen/Pelvis CT 01/22/22 16:28 IMPRESSION: 1. Status post hysterectomy. Postop changes in the anterior abdominal wall are present, as noted above. 2. Large volume of hyperdense soft tissue demonstrated in the mesentery, extending into the extraperitoneal space of the pelvis, consistent with postop hematoma, with approximate measurements given above. No evidence of active bleeding demonstrated. 3. Additional large volume of nonhemorrhagic ascites demonstrated in the abdomen and pelvis. Chest/Abdomen X-ray 01/23/22 11:05 IMPRESSION: 1. No acute cardiopulmonary finding. 2. Mild ileus. No acute abdominal process noted at this time. Laboratory Results WBC 5.2 10^3/uL (4.0-10.0) 01/24/22 06:20 RBC 2.84 10^6/uL (4.1-5.3) L 01/24/22 06:20 Hgb 8.7 g/dL (11.5-15.3) L 01/24/22 06:20 Hct 25.4 % (37.0-47.0) L 01/24/22 06:20 MCV 89.4 fl (81-99) 01/24/22 06:20 MCH 30.6 pg (28.0-34.0) 01/24/22 06:20 MCHC 34.3 g/dL (30.0-36.0) 01/24/22 06:20 RDW 16.3 % (12.1-15.1) H 01/24/22 06:20 Plt Count 103 10^3/cmm (130-400) L 01/24/22 06:20 MPV 10.6 fL (7.4-10.4) H 01/24/22 06:20 Neut % (Auto) 59.2 % 01/24/22 06:20 Lymph % (Auto) 30.9 % 01/24/22 06:20 [place]cdonald % (Auto) 6.2 % 01/24/22 06:20 Eos % (Auto) 2.9 % 01/24/22 06:20 Baso % (Auto) 0.4 % 01/24/22 06:20 Neut # (Auto) 3.06 10^3/uL (1.8-7.7) 01/24/22 06:20 Lymph # (Auto) 1.6 10^3/uL (0.8-4.8) 01/24/22 06:20 [place]cdonald # (Auto) 0.3 10^3/uL (0.2-0.9) 01/24/22 06:20 Eos # (Auto) 0.2 10^3/uL (0.0-0.8) 01/24/22 06:20 Baso # (Auto) 0.0 10^3/uL (0.0-0.1) 01/24/22 06:20 Nucleated RBC % (auto) 0 % 01/24/22 06:20 Nucleated RBCs # 0.0 /100WBC 01/24/22 06:20 PT 14.50 SECONDS (12.1-14.9) 01/23/22 13:00 INR 1.09 (0.8-1.2) 01/23/22 13:00 APTT 27.3 SECONDS (23.9-36.7) 01/23/22 13:00 Fibrinogen 227 mg/dL (174-498) 01/23/22 13:00 Sodium 139 mmol/L (136-145) 01/23/22 13:00 Potassium 3.7 mmol/L (3.5-5.1) 01/23/22 13:00 Chloride 107 mmol/L (98-107) 01/23/22 13:00 Carbon Dioxide 24 mmol/L (22-29) 01/23/22 13:00 Anion Gap 11.7 (5-19) 01/23/22 13:00 BUN 6 mg/dL (6-20) 01/23/22 13:00 Creatinine 0.7 mg/dL (0.5-0.9) 01/23/22 13:00 GFR Calculation 97.0 mL/min (90-130) 01/23/22 13:00 Glucose 105 mg/dL (65-115) 01/23/22 13:00 Calculated Osmolality 286 mOsm/kg (285-295) 01/23/22 13:00 Calcium 8.4 mg/dL (8.5-10.5) L 01/23/22 13:00 Iron 150 ug/dL (37-145) H 01/23/22 13:00 TIBC 156 mcg/dl 01/23/22 13:00 % Saturation 96.1 % (20-50) H 01/23/22 13:00 Unsat Iron Binding 6 ug/dL (112-347) L 01/23/22 13:00 Total Bilirubin 0.4 mg/dL (0.15-1.2) 01/23/22 13:00 AST 19 U/L (0-32) 01/23/22 13:00 ALT 10 U/L (0-33) 01/23/22 13:00 Alkaline Phosphatase 34 U/L (35-105) L 01/23/22 13:00 Total Protein 5.2 g/dL (6.6-8.7) L 01/23/22 13:00 Albumin 3.4 g/dL (3.5-5.2) L 01/23/22 13:00 Globulin 1.8 g/dL (1.3-4.6) 01/23/22 13:00 Vitamin B12 460 pg/mL (232-1245) 01/23/22 13:00 Folate 4.4 ng/mL (4.8-37.3) L 01/23/22 13:00 Urine HCG, Qual Negative (Negative) 01/22/22 08:34 Blood Type A Positive 01/22/22 08:49 Rho(D) Type Positive 01/22/22 08:49 Antibody Screen Negative 01/22/22 08:49 Crossmatch See Detail 01/22/22 08:49 Vitals Last Vital Signs Temp 98.0 F 01/24/22 04:48 Pulse 77 01/24/22 04:48 Resp 19 H 01/24/22 06:25 BP 100/56 01/24/22 04:48 Pulse Ox 97 01/24/22 04:48 O2 Del Method 01/24/22 04:48 O2 Flow Rate 3 01/22/22 20:15 Discharge Plan Discharge Patient Disposition: Home Condition: Stable Prescriptions: New docusate sodium 100 mg Capsule 100 mg PO BID Qty: 60 0RF oxycodone-acetaminophen 5-325 mg Tablet 1 tab PO Q4H PRN (Reason: Moderate To Severe Pain) Qty: 30 0RF Continued tizanidine [Zanaflex] 4 mg capsule 4 mg PO Q6H PRN (Reason: Spasms) methocarbamol 750 mg tablet 750 mg PO Q6H PRN (Reason: Muscle Spasm) fluoxetine [Prozac] 40 mg capsule 40 mg PO QAM Qty: 90 2RF Rx Instructions: Take one capsule every morning fluoxetine [Prozac] 20 mg capsule 20 mg PO .morning Qty: 90 2RF Rx Instructions: Take one capsule in morning with 40 mg capsule for total dose 60 mg. clonazepam [Klonopin] 0.5 mg tablet 0.5 mg PO DAILY PRN (Reason: anxiety) Qty: 30 3RF Rx Instructions: Take one tablet daily as needed for anxiety mirtazapine [Remeron] 15 mg tablet 7.5 mg PO .9 pm Qty: 15 4RF Rx Instructions: Take half tablet at 9 pm pantoprazole 40 mg tablet,delayed release (DR/EC) 40 mg PO DAILY@0800 Rx Instructions: take thirty minutes prior to first meal of the day tamsulosin [Flomax] 0.4 mg capsule 0.4 mg PO DAILY@0800 PRN (Reason: urine retention) hydrocodone-acetaminophen 7.5-325 mg tablet 1 tab PO TID PRN (Reason: Pain) sucralfate [Carafate] 1 gram tablet 1 g PO DAILY Rx Instructions: TAKE 1 TABLET BY MOUTH TWICE DAILY methenamine hippurate [Hiprex] 1 gram tablet 1 g PO BID Rx Instructions: Take 1000 mg of vitamin C with each dose of methenamine ondansetron 4 mg tablet,disintegrating 4 mg PO Q8H PRN (Reason: nausea and vomiting) Qty: 15 0RF Discharge Orders: Discharge Order (Routine); Ordered 01/24/22 Ordered By: Maira Stephens Referrals: Maira Stephens MD [Physician] - 02/04/22 3:00 pm Patient Instructions: Oxycodone/Acetaminophen (By mouth), Laxative, Stool Softeners (By mouth), Salpingectomy (DC), Laparoscopic Hysterectomy (DC), OB Discharge Report, Opioid Safety Discharge Attestations Time Spent in Discharge Care*: less than 30 min Quality Metrics Clinical Quality Measures [ No reported AMI, CVA or VTE this stay] Coding Level of Care Code Acute Chg FW DC note Diagnoses Acute blood loss anemia D62 Postoperative anemia due to acute blood loss D62 S/P hysterectomy with oophorectomy Z90.710; Z90.721 Gastritis and duodenitis K29.90
[2022-01-24] MEDS: docusate sodium 100 mg Capsule PO (09:04)
[2022-01-24] MEDS: sucralfate 1 gm Tablet PO (09:06)
[2022-01-24] MEDS: phenazopyridine 100 mg Tablet 200 MG PO (09:08)
[2022-01-24] MEDS: multivitamin therapeutic Tablet 1 TAB PO (09:09)
[2022-01-24 09:45] VITALS: BP 117/73; PULSE 81; RESP 18; TEMP 36.5
[2022-01-24 09:55] VITALS: BP 117/73; PULSE 81; RESP 18; TEMP 36.5
== END 2022-01-24 09:55 | disposition home or self-care (01) | DRG 742 ==
LOC: OBGYN 01-23 15:56
PROVIDERS: Anesthesiology; Student in an Organized Health Care Education/Training Program; Admitting Provider Obstetrics & Gynecology; PCP Family Medicine; Visit Provider Obstetrics & Gynecology
PROC: 0UT9FZZ Resection of Uterus, Via Natural or Artificial Opening With Percutaneous Endoscopic Assistance (ICD-10-PCS; principal; 2022-01-22 09:40)
PROC: 0UT9FZZ Resection of Uterus, Via Natural or Artificial Opening With Percutaneous Endoscopic Assistance (ICD-10-PCS; CPT 58661; 2022-01-22 09:40)
PROC: 0TJB8ZZ Inspection of Bladder, Via Natural or Artificial Opening Endoscopic (ICD-10-PCS; CPT 52000; 2022-01-22 09:40)
DX: N81.4 Uterovaginal prolapse, unspecified (principal); D62 Acute posthemorrhagic anemia; F33.9 Major depressive disorder, recurrent, unspecified; N99.820 Postprocedural hemorrhage of a genitourinary system organ or structure following a genitourinary system procedure; N93.9 Abnormal uterine and vaginal bleeding, unspecified; Z88.0 Allergy status to penicillin; Z88.2 Allergy status to sulfonamides; F43.12 Post-traumatic stress disorder, chronic; F17.210 Nicotine dependence, cigarettes, uncomplicated; Z79.891 Long term (current) use of opiate analgesic; K29.80 Duodenitis without bleeding; K29.70 Gastritis, unspecified, without bleeding; I95.9 Hypotension, unspecified
CPT/HCPCS: 36415; 36430; 74022; 74177; 80053; 82607; 82746; 83540; 83550; 84703; 85014; 85018; 85025; 85027; 85049; 85384; 85610; 85730; 86850; 86900; 86920; 86927; 87086; 88305; 93005; 96372; G0378; J0131; J0690; J1100; J1170; J1885; J2250; J2370; J2405; J2704; J2710; J3010; J3420; J3490; J7030; J7121; P9016; P9017; P9047; Q9967

== ENCOUNTER 2022-01-27 17:33 | Emergency (ER) | payer MEDICARE, MEDICAID, SELFPAY ==
[2022-01-27 17:53] VITALS: BP 117/75; PULSE 85; RESP 16; TEMP 36.9; O2SAT 99
--- NOTE | 2022-01-27 18:59 | USR_ITS ---
PROCEDURE INFORMATION: Exam: US Pelvis, Transvaginal Exam date and time: 01/27/2022 7:14 PM Age: 31 years old Clinical indication: Other: Bleeding post surgery; Prior surgery; Surgery date: 3-7 days post-operative; Surgery type: Partial hysterectomy and cauterization; Additional info: Vaginal bleeding post op hysterectomy. ? Hemorrhage TECHNIQUE: Imaging protocol: Real-time transvaginal pelvic ultrasound with image documentation. Transvaginal imaging was used for better evaluation of the endometrium, adnexa, and/or cervix. COMPARISON: US pelvic with transvaginal 10/09/2021 11:21 AM FINDINGS: Uterus: Surgically absent. Right ovary/adnexa: 3.7 x 2.0 x 4.1 cm with small follicles and normal blood flow. Left ovary/adnexa: Suboptimally visualized and measuring approximately 3.6 x 2.1 x 3.4 cm. Arterial blood flow is visualized. Intraperitoneal space: Anechoic fluid is seen in the cul-de-sac and in both adnexa. US/US pelvis lmt w transvag IMPRESSION: 1. Surgically absent uterus. 2. Anechoic fluid in the cul-de-sac and both adnexal regions could represent normal post surgical fluid. Residual blood products are not excluded. 3. Unremarkable ovaries.
--- NOTE | 2022-01-27 19:24 | W.ED.GENADLT ---
HPI - General Adult General: Chief complaint: General Medical Stated complaint: PAssing blood after surgery Time Seen by Provider: 01/27/22 18:46 Source: patient and family History of Present Illness: 31-year-old female who underwent hysterectomy last week. She had hemorrhage, and was open to following. She seems to be doing well, but then had some vaginal bleeding today. She had a small amount of dark red blood in the stool when urinating. This is happened a couple of times. No fever. Mild increase in pressure when she stands especially. She has only noticed bleeding with urination. Location: abdomen Radiation: non-radiation Severity: moderate Relieving factors: none Exacerbating factors: movement Associated symptoms: Deny chest pain, confusion, cough, decreased appetite, dyspnea, fevers/chills, headache(s), short of breath or vomiting Review of Systems Card: Denies: chest pain Resp: Denies: dyspnea GI: Reports: abdominal pain; Denies: vomiting : Reports: vaginal bleeding; Denies: flank pain, difficulty voiding or vaginal discharge Neuro: Denies: headache(s) or confusion PFS ED PFSH: Medical History Abnormal uterine bleeding (AUB) Acute blood loss anemia Chronic post-traumatic stress disorder COVID-19 Gastritis and duodenitis History of eating disorder Intervertebral disc disorders with radiculopathy, lumbosacral region Major depressive disorder, recurrent severe without psychotic features Nicotine dependence, cigarettes, uncomplicated Nicotine dependence, cigarettes, with unspecified nicotine-induced disorders No pertinent past medical history Denies diabetes, hypertension, seizures, DVT/PE PCP: Dr. Summers Panic disorder Psychiatric care Recurrent UTI Uterine prolapse Grade 3 Surgical History H/O ureter repair History of back surgery 2020--T12 and L1 History of colonoscopy (~2015) History of esophagogastroduodenoscopy (EGD) (~11/2019) History of laparoscopic cholecystectomy S/P hysterectomy with oophorectomy S/P tonsillectomy S/P tubal ligation laparoscopic procedure, performed in 2014 Family History Mother Chronic kidney disease (CKD) Stroke Ovarian cancer diagnosed at age 31 or 32 Grandfather No problems noted. Grandmother Diabetes paternal Ovarian cancer maternal, age at diagnosis unknown Father Hyperlipidemia Stroke Family/Other Ovarian cancer maternal aunt, age age at diagnosis unknown Denies family history of Colon cancer Heart disease Hypertension Uterine cancer Thyroid condition Social History Smoking and tobacco status: current every day smoker cigarettes Packs smoked per day: 1 Alcohol intake: never Marital status: Current occupational status: unemployed History of recent travel: No Female Reproductive History: Date of last menstrual period: 01/09/22 Physical Exam Const: COMMON NORMALS: no acute distress GENERAL APPEARANCE: cooperative; not ill appearing and not frail appearing HENMT: COMMON NORMALS: normocephalic, atraumatic and Normal external nose present HEAD & SCALP: normocephalic and atraumatic FACE & SINUS: normal facial exam and face symmetric NOSE: Normal external nose present Eye: COMMON NORMALS: Equal, round and reactive pupils present and EOMs intact bilaterally PUPIL: Yes Equal, round and reactive pupils present Neck/C-Spine: GENERAL: Yes trachea midline Chest: CHEST: Yes Symmetrical chest wall rise Resp: COMMON NORMALS: normal respiratory effort, No retractions, No use of accessory muscles and clear to auscultation bilaterally AUSCULTATION: clear to auscultation bilaterally Cardio: COMMON NORMALS: regular rate and regular rhythm RATE: regular rate RHYTHM: regular rhythm GI: COMMON NORMALS: Normal to inspection, nondistended, normoactive bowel sounds present PALPATION: Yes Tenderness to palpation present (GI) (Across lower abdomen) OTHER: Port sites are appropriate. Incision looks excellent. Some ecchymosis to the left lower quadrant/pelvis and flank Extremity: COMMON NORMALS: no pedal edema Neuro: BARB COMA SCALE: document GCS findings Barb coma scale eye opening: Spontaneous Barb coma scale verbal response: Orientated [place] coma scale motor response: Obey commands Barb coma scale total score: 15 SENSORY EXAM: Yes extremities (intact) Psych: COMMON NORMALS: speech normal SPEECH: Yes normal speech Skin: COMMON NORMALS: no rashes or lesions noted GENERAL SKIN EXAM: no rashes or lesions noted Course Vital Signs: Vital signs: Vital Signs Temperature 98.5 F 01/27/22 17:53 Pulse Rate 85 01/27/22 17:53 Respiratory Rate 16 01/27/22 17:53 Blood Pressure 117/75 01/27/22 17:53 Pulse Oximetry 99 01/27/22 17:53 MDM - General Adult Medical Decision Making No signs of hemorrhage. Hemoglobin is stable from prior. BMP is normal. Ultrasound reveals anechoic fluid in the cul-de-sac that could represent normal postsurgical fluid but residual blood products are not excluded. Lab Data 01/27/22 19:15 01/27/22 19:15 Radiology Impressions Pelvic/Transvag US 01/27/22 18:59 IMPRESSION: 1. Surgically absent uterus. 2. Anechoic fluid in the cul-de-sac and both adnexal regions could represent normal post surgical fluid. Residual blood products are not excluded. 3. Unremarkable ovaries. Laboratory Results WBC 4.3 10^3/uL (4.0-10.0) 01/27/22 19:15 RBC 2.95 10^6/uL (4.1-5.3) L 01/27/22 19:15 Hgb 9.1 g/dL (11.5-15.3) L 01/27/22 19:15 Hct 27.5 % (37.0-47.0) L 01/27/22 19:15 MCV 93.2 fl (81-99) 01/27/22 19:15 MCH 30.8 pg (28.0-34.0) 01/27/22 19:15 MCHC 33.1 g/dL (30.0-36.0) 01/27/22 19:15 RDW 15.5 % (12.1-15.1) H 01/27/22 19:15 Plt Count 178 10^3/cmm (130-400) 01/27/22 19:15 MPV 10.0 fL (7.4-10.4) 01/27/22 19:15 Neut % (Auto) 60.1 % 01/27/22 19:15 Lymph % (Auto) 24.5 % 01/27/22 19:15 [place] % (Auto) 6.5 % 01/27/22 19:15 Eos % (Auto) 8.2 % 01/27/22 19:15 Baso % (Auto) 0.2 % 01/27/22 19:15 Neut # (Auto) 2.57 10^3/uL (1.8-7.7) 01/27/22 19:15 Lymph # (Auto) 1.1 10^3/uL (0.8-4.8) 01/27/22 19:15 [place] # (Auto) 0.3 10^3/uL (0.2-0.9) 01/27/22 19:15 Eos # (Auto) 0.4 10^3/uL (0.0-0.8) 01/27/22 19:15 Baso # (Auto) 0.0 10^3/uL (0.0-0.1) 01/27/22 19:15 Nucleated RBC % (auto) 0 % 01/27/22 19:15 Nucleated RBCs # 0.0 /100WBC 01/27/22 19:15 Sodium 136 mmol/L (136-145) 01/27/22 19:15 Potassium 3.3 mmol/L (3.5-5.1) L 01/27/22 19:15 Chloride 102 mmol/L (98-107) 01/27/22 19:15 Carbon Dioxide 27 mmol/L (22-29) 01/27/22 19:15 Anion Gap 10.3 (5-19) 01/27/22 19:15 BUN 10 mg/dL (6-20) 01/27/22 19:15 Creatinine 0.8 mg/dL (0.5-0.9) 01/27/22 19:15 GFR Calculation 83.1 mL/min (90-130) L 01/27/22 19:15 Glucose 113 mg/dL (65-115) 01/27/22 19:15 Calculated Osmolality 282 mOsm/kg (285-295) L 01/27/22 19:15 Calcium 8.8 mg/dL (8.5-10.5) 01/27/22 19:15 Total Bilirubin 0.4 mg/dL (0.15-1.2) 01/27/22 19:15 AST 14 U/L (0-32) 01/27/22 19:15 ALT 10 U/L (0-33) 01/27/22 19:15 Alkaline Phosphatase 43 U/L (35-105) 01/27/22 19:15 Total Protein 5.9 g/dL (6.6-8.7) L 01/27/22 19:15 Albumin 3.3 g/dL (3.5-5.2) L 01/27/22 19:15 Globulin 2.6 g/dL (1.3-4.6) 01/27/22 19:15 Urine Color Red (Yellow) 01/27/22 19:34 Urine Appearance Bloody (CLEAR) A 01/27/22 19:34 Urine pH 5 (5-7) 01/27/22 19:34 Ur Specific [place] 1.020 (1.005-1.030) 01/27/22 19:34 Urine Protein 1+ (Negative) H 01/27/22 19:34 Urine Glucose (UA) Norm (Normal) 01/27/22 19:34 Urine Ketones 1+ (Negative) H 01/27/22 19:34 Urine Blood 3+ (Negative) H 01/27/22 19:34 Urine Nitrate Positive (Negative) H 01/27/22 19:34 Urine Bilirubin 1+ (Negative) H 01/27/22 19:34 Urine Urobilinogen 4 mg/dL (Negative) H 01/27/22 19:34 Ur Leukocyte Esterase 1+ (Negative) H 01/27/22 19:34 Urine RBC Too numerous to cnt /hpf (0-2) H 01/27/22 19:34 Urine WBC 25-40 /hpf (0-5) H 01/27/22 19:34 Ur Squamous Epith Cells None /hpf (0-5) 01/27/22 19:34 Amorphous Sediment Not Reportable 01/27/22 19:34 Urine Bacteria 3+ /hpf (NONE) H 01/27/22 19:34 Blood Type A Positive 01/27/22 19:15 Rho(D) Type Positive 01/27/22 19:15 Discharge Plan Discharge Patient Disposition: Home Clinical Impression: Postoperative bleeding from incision Condition: Stable Prescriptions: No Action tizanidine [Zanaflex] 4 mg capsule 4 mg PO Q6H PRN (Reason: Spasms) methocarbamol 750 mg tablet 750 mg PO Q6H PRN (Reason: Muscle Spasm) fluoxetine [Prozac] 40 mg capsule 40 mg PO QAM Qty: 90 2RF Rx Instructions: Take one capsule every morning fluoxetine [Prozac] 20 mg capsule 20 mg PO .morning Qty: 90 2RF Rx Instructions: Take one capsule in morning with 40 mg capsule for total dose 60 mg. clonazepam [Klonopin] 0.5 mg tablet 0.5 mg PO DAILY PRN (Reason: anxiety) Qty: 30 3RF Rx Instructions: Take one tablet daily as needed for anxiety mirtazapine [Remeron] 15 mg tablet 7.5 mg PO .9 pm Qty: 15 4RF Rx Instructions: Take half tablet at 9 pm pantoprazole 40 mg tablet,delayed release (DR/EC) 40 mg PO DAILY@0800 Rx Instructions: take thirty minutes prior to first meal of the day tamsulosin [Flomax] 0.4 mg capsule 0.4 mg PO DAILY@0800 PRN (Reason: urine retention) docusate sodium 100 mg Capsule 100 mg PO BID Qty: 60 0RF oxycodone-acetaminophen 5-325 mg Tablet 1 tab PO Q4H PRN (Reason: Moderate To Severe Pain) Qty: 30 0RF hydrocodone-acetaminophen 7.5-325 mg tablet 1 tab PO TID PRN (Reason: Pain) sucralfate [Carafate] 1 gram tablet 1 g PO DAILY Rx Instructions: TAKE 1 TABLET BY MOUTH TWICE DAILY methenamine hippurate [Hiprex] 1 gram tablet 1 g PO BID Rx Instructions: Take 1000 mg of vitamin C with each dose of methenamine ondansetron 4 mg tablet,disintegrating 4 mg PO Q8H PRN (Reason: nausea and vomiting) Qty: 15 0RF Discharge Orders: Discharge ED (Routine); Ordered 01/27/22 Ordered By: Moshe Villagran Referrals: Mattie Summers DO [Primary Care Provider] - Patient Instructions: Hysterectomy (DC) Activity Restrictions/Additional Instructions: Return for worsening bleeding, soaking pads, fever greater than 100, feeling faint, etc. Call your doctor tomorrow, let them know you were seen here with some bleeding. They may wish to obtain another blood count on you early this week before your follow-up. Coding Level of Care Code ED [employer] [facility] [employer] Exam Comprehensive
[2022-01-27 19:31] LABS: Basophils % 0.2 %; Eosinophils # 0.4 10^3/uL (0.0-0.8); Eosinophils % 8.2 %; Hematocrit 27.5 % (37.0-47.0); Hemoglobin 9.1 g/dL (11.5-15.3); Lymphocytes # 1.1 10^3/uL (0.8-4.8); Lymphocytes % 24.5 %; Mean Corpuscular HGB Conc 33.1 g/dL (30.0-36.0); Mean Corpuscular Hemoglobin 30.8 pg (28.0-34.0); Mean Corpuscular Volume 93.2 fl (81-99); Monocytes # 0.3 10^3/uL (0.2-0.9); Monocytes % 6.5 %; Neutrophils # 2.57 10^3/uL (1.8-7.7); Neutrophils % 60.1 %; Nucleated Red Blood Cells % 0 %; Platelet Count 178 10^3/cmm (130-400); Red Blood Count 2.95 10^6/uL (4.1-5.3); Red Cell Distribution Width 15.5 % (12.1-15.1); White Blood Count 4.3 10^3/uL (4.0-10.0)
[2022-01-27 19:51] LABS: Alanine Aminotransferase 10 U/L (0-33); Albumin Level 3.3 g/dL (3.5-5.2); Alkaline Phosphatase 43 U/L (35-105); Anion Gap 10.3 (5-19); Aspartate Amino Transferase 14 U/L (0-32); Blood Urea Nitrogen 10 mg/dL (6-20); Calcium 8.8 mg/dL (8.5-10.5); Carbon Dioxide 27 mmol/L (22-29); Chloride 102 mmol/L (98-107); Globulin 2.6 g/dL (1.3-4.6); Glomerular Filtration Rate 83.1 mL/min (90-130); Glucose 113 mg/dL (65-115); Osmolality Calculated 282 mOsm/kg (285-295); Potassium 3.3 mmol/L (3.5-5.1); Sodium 136 mmol/L (136-145); Total Bilirubin 0.4 mg/dL (0.15-1.2); Total Protein 5.9 g/dL (6.6-8.7)
[2022-01-27 20:12] LABS: Urine Appearance Bloody (CLEAR); Urine Color Red (Yellow)
[2022-01-27 20:13] LABS: Bilirubin Urine 1+ (Negative); Blood Urine 3+ (Negative); Glucose Urine UA Norm (Normal); Ketones Urine 1+ (Negative); Nitrate Urine Positive (Negative); Protein Urine 1+ (Negative); Urobilinogen Urine 4 mg/dL (Negative); pH Urine 5 (5-7)
[2022-01-27 20:14] LABS: Add Urine Microscopic? YES; Leukocyte Esterase Urine 1+ (Negative)
[2022-01-27 20:16] LABS: Bacteria Urine 3+ /hpf; RBC Urine TOO NUMEROUS TO CNT /hpf (0-2); WBC Urine 25-40 /hpf (0-5)
[2022-01-27 20:17] LABS: Add Urine Culture? Yes
[2022-01-27 21:06] VITALS: BP 111/73; PULSE 62; RESP 16; O2SAT 100
== END 2022-01-27 21:06 | disposition home or self-care (01) ==
PROVIDERS: Emergency Provider Emergency Medicine; PCP Family Medicine
DX: N99.820 Postprocedural hemorrhage of a genitourinary system organ or structure following a genitourinary system procedure (principal); Z90.710 Acquired absence of both cervix and uterus; F17.210 Nicotine dependence, cigarettes, uncomplicated
CPT/HCPCS: 76830; 76857; 80053; 81001; 85025; 86850; 86900; 99284

== ENCOUNTER → 2022-02-04 16:47 | Outpatient (BNVA) | payer MEDICARE, MEDICAID, SELFPAY | PROVIDERS: PCP Family Medicine; Visit Provider Obstetrics & Gynecology | DX: D62 Acute posthemorrhagic anemia (principal) | CPT/HCPCS: 85025 ==

== ENCOUNTER 2022-04-28 16:53 | Emergency (ER) | payer MEDICARE, MEDICAID, SELFPAY ==
[2022-04-28 17:04] VITALS: BP 125/84; PULSE 101; RESP 15; TEMP 37.1; O2SAT 100; BMI 21.9
[2022-04-28 17:08] VITALS: BP 103/74; PULSE 73; RESP 16; O2SAT 99
--- NOTE | 2022-04-28 17:29 | ED_ITS ---
HPI - Abdominal Pain General: Chief Complaint: Abdominal Pain Stated Complaint: abd pain Time Seen by Provider: 04/28/22 17:09 History of Present Illness: Patient is a 31-year-old female comes to the ED with abdominal pain. Symptoms started approximately 3 days ago. Symptoms started after she ate something spicy. She says her pain is currently 7 out of 10 and its located in the right lower quadrant of her abdomen. She endorses having nausea and multiple episodes of emesis over the past couple days. She started developing diarrhea yesterday and had over 7 episodes of diarrhea today. She is having trouble keeping any food or fluids down. Denies any fevers. Past surgical history of a hysterectomy and cholecystectomy. Associated Symptoms: Reports diarrhea, nausea and vomiting; Denies chills, constipation, dysuria, fever(s), hematochezia and hematuria Review of Systems Const: Denies: fever(s), chills or fatigue Eyes: Denies: change in vision or eye discomfort ENMT: Denies: throat pain, odynophagia, nasal discharge or nasal congestion Card: Denies: chest pain, palpitations, edema, swelling of feet/ankles, dyspnea on exertion or orthopnea Resp: Denies: dyspnea, productive cough or non-productive cough GI: Reports: abdominal pain, nausea, vomiting and diarrhea; Denies: constipation or hematochezia : Denies: flank pain, dysuria or hematuria Musc: Denies: neck pain, back pain or extremity swelling Skin/Breast: Denies: rash or new lesions Neuro: Denies: headache(s), numbness in extremities or weakness in extremities PFSH ED PFSH: Medical History Abnormal uterine bleeding (AUB) Acute blood loss anemia Chronic post-traumatic stress disorder COVID-19 Gastritis and duodenitis History of eating disorder Intervertebral disc disorders with radiculopathy, lumbosacral region Major depressive disorder, recurrent severe without psychotic features Nicotine dependence, cigarettes, uncomplicated Nicotine dependence, cigarettes, with unspecified nicotine-induced disorders No pertinent past medical history Denies diabetes, hypertension, seizures, DVT/PE PCP: Dr. Summers Panic disorder Psychiatric care Recurrent UTI Uterine prolapse Grade 3 Surgical History H/O ureter repair History of back surgery 2020--T12 and L1 History of colonoscopy (~2015) History of esophagogastroduodenoscopy (EGD) (~11/2019) History of laparoscopic cholecystectomy S/P hysterectomy with oophorectomy S/P tonsillectomy S/P tubal ligation laparoscopic procedure, performed in 2014 Family History Mother Chronic kidney disease (CKD) Stroke Ovarian cancer diagnosed at age 31 or 32 Grandfather No problems noted. Grandmother Diabetes paternal Ovarian cancer maternal, age at diagnosis unknown Father Hyperlipidemia Stroke Family/Other Ovarian cancer maternal aunt, age age at diagnosis unknown Denies family history of Colon cancer Heart disease Hypertension Uterine cancer Thyroid condition Physical Exam Const: COMMON NORMALS: patient oriented x3 and alert GENERAL APPEARANCE: cooperative HENMT: COMMON NORMALS: normocephalic HEAD & SCALP: normocephalic MOUTH: Normal oral and palatal mucosa present THROAT: posterior oropharynx normal and uvula midline Neck/C-Spine: COMMON NORMALS: supple GENERAL: Yes normal visual inspection Resp: COMMON NORMALS: normal respiratory effort, No retractions, No use of accessory muscles and clear to auscultation bilaterally AUSCULTATION: clear to auscultation bilaterally Cardio: COMMON NORMALS: regular rate, regular rhythm, S1 normal heart sound present, S2 normal heart sound present, No gallops present (Cardio), No clicks present (Cardio), No murmurs present (Cardio) and Peripheral pulses 2+ throughout RATE: regular rate RHYTHM: regular rhythm HEART SOUNDS: S1 normal heart sound present and S2 normal heart sound present PERIPHERAL PULSES: Peripheral pulses 2+ throughout GI: COMMON NORMALS: Normal to inspection, nondistended, normoactive bowel sounds present, Soft to palpation and no masses PALPATION: Yes Soft to palpation and Yes Tenderness to palpation present (GI) Details: RLQ : COMMON NORMALS: Yes no CVA tenderness BLADDER/KIDNEY EXAM: Yes no CVA tenderness Back/Pelvis: COMMON NORMALS: no CVA tenderness Extremity: COMMON NORMALS: normal to inspection Neuro: COMMON NORMALS: patient oriented x3 SENSORIUM/ORIENTATION: Yes alert GAIT: Yes Normal gait present Skin: GENERAL SKIN EXAM: dry skin Course Vital Signs: Vital signs: Vital Signs Temperature 98.8 F 04/28/22 17:04 Pulse Rate 71 04/28/22 18:09 Respiratory Rate 18 04/28/22 18:09 Blood Pressure 103/74 04/28/22 18:09 Pulse Oximetry 99 04/28/22 18:09 Oxygen Delivery Me thod 04/28/22 18:09 MDM - Abdominal Pain Medical Decision Making Patient is a 31-year-old female comes to the ED with abdominal pain. Symptoms started approximately 3 days ago. Symptoms started after she ate something spicy. She says her pain is currently 7 out of 10 and its located in the right lower quadrant of her abdomen. She endorses having nausea and multiple episodes of emesis over the past couple days. She started developing diarrhea yesterday and had over 7 episodes of diarrhea today. She is having trouble keeping any food or fluids down. Denies any fevers. Vitals are stable. Patient has some abdominal tenderness in the right lower quadrant of the abdomen. Rest of exam is benign. Labs are unremarkable. CT of abdomen pelvis shows enteritis. Patient was given 2 L of IV fluids and nausea meds along with morphine her symptoms improved. She was able to tolerate p.o. fluids here in the ED and stable for discharge home. She is diagnosed with enteritis sent home with a prescription for dicyclomine and Reglan. Told to follow-up with PCP within the next week for reevaluation. Return to ED precautions given. Patient understood and agreed with plan. Lab Data I reviewed the patient's lab results. 04/28/22 17:50 04/28/22 17:50 Labs/Radiology: Radiology Impressions Abdomen/Pelvis CT 04/28/22 17:43 IMPRESSION: 1. Mild mucosal thickening versus under distention of the descending and sigmoid colon concern for a nonspecific enteritis. Please correlate clinically. 2. There is mucosal thickening at the gastroesophageal junction consistent with nonspecific esophagitis/gastritis. Follow-up to exclude neoplasm if clinically warranted. Laboratory Results WBC 4.0 10^3/uL (4.0-10.0) 04/28/22 17:50 RBC 5.19 10^6/uL (4.1-5.3) 04/28/22 17:50 Hgb 15.7 g/dL (11.5-15.3) H 04/28/22 17:50 Hct 46.9 % (37.0-47.0) 04/28/22 17:50 MCV 90.4 fl (81-99) 04/28/22 17:50 MCH 30.3 pg (28.0-34.0) 04/28/22 17:50 MCHC 33.5 g/dL (30.0-36.0) 04/28/22 17:50 RDW 12.0 % (12.1-15.1) L 04/28/22 17:50 Plt Count 236 10^3/cmm (130-400) 04/28/22 17:50 MPV 9.4 fL (7.4-10.4) 04/28/22 17:50 Neut % (Auto) 61.2 % 04/28/22 17:50 Lymph % (Auto) 32.0 % 04/28/22 17:50 [place] % (Auto) 5.0 % 04/28/22 17:50 Eos % (Auto) 1.3 % 04/28/22 17:50 Baso % (Auto) 0.5 % 04/28/22 17:50 Neut # (Auto) 2.45 10^3/uL (1.8-7.7) 04/28/22 17:50 Lymph # (Auto) 1.3 10^3/uL (0.8-4.8) 04/28/22 17:50 [place] # (Auto) 0.2 10^3/uL (0.2-0.9) 04/28/22 17:50 Eos # (Auto) 0.1 10^3/uL (0.0-0.8) 04/28/22 17:50 Baso # (Auto) 0.0 10^3/uL (0.0-0.1) 04/28/22 17:50 Nucleated RBC % (auto) 0 % 04/28/22 17:50 Nucleated RBCs # 0.0 /100WBC 04/28/22 17:50 Sodium 138 mmol/L (136-145) 04/28/22 17:50 Potassium 4.0 mmol/L (3.5-5.1) 04/28/22 17:50 Chloride 100 mmol/L (98-107) 04/28/22 17:50 Carbon Dioxide 25 mmol/L (22-29) 04/28/22 17:50 Anion Gap 17.0 (5-19) 04/28/22 17:50 BUN 9 mg/dL (6-20) 04/28/22 17:50 Creatinine 0.9 mg/dL (0.5-0.9) 04/28/22 17:50 GFR Calculation 72.6 mL/min (90-130) L 04/28/22 17:50 Glucose 83 mg/dL (65-115) 04/28/22 17:50 Calculated Osmolality 284 mOsm/kg (285-295) L 04/28/22 17:50 Calcium 10.0 mg/dL (8.5-10.5) 04/28/22 17:50 Total Bilirubin 0.4 mg/dL (0.15-1.2) 04/28/22 17:50 AST 15 U/L (0-32) 04/28/22 17:50 ALT 12 U/L (0-33) 04/28/22 17:50 Alkaline Phosphatase 63 U/L (35-105) 04/28/22 17:50 Total Protein 8.0 g/dL (6.6-8.7) 04/28/22 17:50 Albumin 5.2 g/dL (3.5-5.2) 04/28/22 17:50 Globulin 2.8 g/dL (1.3-4.6) 04/28/22 17:50 Lipase 32 U/L (13-60) 04/28/22 17:50 HCG, Qual Negative (Negative) 04/28/22 17:50 Urine Color Yellow (Yellow) 04/28/22 17:42 Urine Appearance Cloudy (CLEAR) A 04/28/22 17:42 Urine pH 5 (5-7) 04/28/22 17:42 Ur Specific [place] 1.015 (1.005-1.030) 04/28/22 17:42 Urine Protein Neg (Negative) 04/28/22 17:42 Urine Glucose (UA) Norm (Normal) 04/28/22 17:42 Urine Ketones Negative (Negative) 04/28/22 17:42 Urine Blood Neg (Negative) 04/28/22 17:42 Urine Nitrate Negative (Negative) 04/28/22 17:42 Urine Bilirubin Neg (Negative) 04/28/22 17:42 Urine Urobilinogen Norm mg/dL (Negative) 04/28/22 17:42 Ur Leukocyte Esterase Negative (Negative) 04/28/22 17:42 Urine RBC None /hpf (0-2) 04/28/22 17:42 Urine WBC Rare /hpf (0-5) 04/28/22 17:42 Ur Squamous Epith Cells >100 /hpf (0-5) H 04/28/22 17:42 Amorphous Sediment Not Reportable 04/28/22 17:42 Urine Bacteria 2+ /hpf (NONE) H 04/28/22 17:42 Discharge Plan Discharge Patient Disposition: Home Clinical Impression: Enteritis Condition: Stable Prescriptions: New dicyclomine 20 mg tablet 20 mg PO QID PRN (Reason: Abdominal cramping) Qty: 20 0RF metoclopramide HCl 10 mg tablet 10 mg PO Q6H PRN (Reason: nausea and vomiting) Qty: 20 0RF No Action tizanidine [Zanaflex] 4 mg capsule 4 mg PO Q6H PRN (Reason: Spasms) methocarbamol 750 mg tablet 750 mg PO Q6H PRN (Reason: Muscle Spasm) fluoxetine [Prozac] 40 mg capsule 40 mg PO QAM Qty: 90 2RF Rx Instructions: Take one capsule every morning fluoxetine [Prozac] 20 mg capsule 20 mg PO .morning Qty: 90 2RF Rx Instructions: Take one capsule in morning with 40 mg capsule for total dose 60 mg. naloxone [Narcan] 4 mg/actuation spray,non-aerosol 4 mg intranasal Q2M PRN (Reason: opioid overdose) Qty: 2 2RF Rx Instructions: spray 1 dose into 1 nostril alternate nostrils w ea dose until help arrive pantoprazole 40 mg tablet,delayed release (DR/EC) 40 mg PO DAILY@0800 Rx Instructions: take thirty minutes prior to first meal of the day tamsulosin [Flomax] 0.4 mg capsule 0.4 mg PO DAILY@0800 PRN (Reason: urine retention) docusate sodium 100 mg Capsule 100 mg PO BID Qty: 60 0RF hydrocodone-acetaminophen 7.5-325 mg tablet 1 tab PO TID PRN (Reason: Pain) sucralfate [Carafate] 1 gram tablet 1 g PO DAILY Rx Instructions: TAKE 1 TABLET BY MOUTH TWICE DAILY methenamine hippurate [Hiprex] 1 gram tablet 1 g PO BID Rx Instructions: Take 1000 mg of vitamin C with each dose of methenamine Discharge Orders: Discharge ED (Routine); Ordered 04/28/22 Ordered By: Jose Jane Referrals: Mattie Summers DO [Primary Care Provider] - Discharge Diet: Regular Discharge Activity: Increase activity as tolerated Patient Instructions: Gastroenteritis (ED) Activity Restrictions/Additional Instructions: Follow-up with medical provider as directed in the next 3 to 5 days. Take medications as prescribed. Drink plenty fluids and stay hydrated. Return to the ER or your medical provider if condition worsens. Please read and understand discharge instructions. Thank you for choosing [facility] for your healthcare needs today. Please realize this is an emergency room and that we are providing you with a medical screening exam and this may not be complete and all inclusive of all the testing and or work up that you may need to determine your ailment or severity of your illness. It is very important that you follow up as instructed or that you return to the Emergency Department should you have concerns or if your condition changes or worsens in any way. 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
--- NOTE | 2022-04-28 17:43 | CTR_ITS ---
PROCEDURE INFORMATION: Exam: CT Abdomen And Pelvis With Contrast Exam date and time: 04/28/2022 6:29 PM Age: 31 years old Clinical indication: Abdominal pain; Generalized; Prior surgery; Surgery date: 6+ months; Surgery type: Partial hyst; Suasn; Additional info: Rlq abdominal pain and tenderness, n/v TECHNIQUE: Imaging protocol: Computed tomography of the abdomen and pelvis with contrast. Radiation optimization: All CT scans at this facility use at least one of these dose optimization techniques: automated exposure control; mA and/or kV adjustment per patient size (includes targeted exams where dose is matched to clinical indication); or iterative reconstruction. Contrast material: OMNI 350; Contrast volume: 100 ml; Contrast route: INTRAVENOUS (IV); Other protocol: This patient has received [address] and 0 known cardiac nuclear medicine studies in the 12 months prior to the current study. COMPARISON: CT abdomen pelvis w con* [id number] 01/22/2022 5:04 PM RADIATION DOSE METRICS: Total DLP (mGy-cm): 668.58 FINDINGS: Liver: Normal. No mass. Gallbladder and bile ducts: The gallbladder has been removed. Pancreas: Normal. No ductal dilation. Spleen: Normal. No splenomegaly. Adrenal glands: Normal. No mass. Kidneys and ureters: Normal. No hydronephrosis. Stomach and bowel: There is mucosal thickening at the gastroesophageal junction. Mild mucosal thickening versus under distention of the descending and sigmoid colon. Appendix: No evidence of appendicitis. Intraperitoneal space: Unremarkable. No free air. No significant fluid collection. Vasculature: Unremarkable. No abdominal aortic aneurysm. Lymph nodes: Unremarkable. No enlarged lymph nodes. Urinary bladder: Unremarkable as visualized. Reproductive: The uterus is not visualized, consistent with hysterectomy. Bones/joints: Posterior fusion changes at T12-L1 with bilateral pedicle screws and stabilization bars. Soft tissues: Unremarkable. CT/CT abdomen pelvis w con* [id number] IMPRESSION: 1. Mild mucosal thickening versus under distention of the descending and sigmoid colon concern for a nonspecific enteritis. Please correlate clinically. 2. There is mucosal thickening at the gastroesophageal junction consistent with nonspecific esophagitis/gastritis. Follow-up to exclude neoplasm if clinically warranted.
[2022-04-28] MEDS: ondansetron 2 mg/ML SDV 2 mL 4 MG IVP (18:06)
[2022-04-28] MEDS: sodium chloride 0.9% 1,000 ML 999 ML IV ×2 (18:06→19:08)
[2022-04-28] MEDS: morphine 4 mg/mL SDV 1 mL IVP (18:06)
[2022-04-28 18:09] VITALS: BP 103/74; PULSE 71; RESP 18; O2SAT 99
[2022-04-28 18:10] LABS: Basophils % 0.5 %; Eosinophils # 0.1 10^3/uL (0.0-0.8); Eosinophils % 1.3 %; Hematocrit 46.9 % (37.0-47.0); Hemoglobin 15.7 g/dL (11.5-15.3); Lymphocytes # 1.3 10^3/uL (0.8-4.8); Mean Corpuscular HGB Conc 33.5 g/dL (30.0-36.0); Mean Corpuscular Hemoglobin 30.3 pg (28.0-34.0); Mean Corpuscular Volume 90.4 fl (81-99); Mean Platelet Volume 9.4 fL (7.4-10.4); Monocytes # 0.2 10^3/uL (0.2-0.9); Neutrophils # 2.45 10^3/uL (1.8-7.7); Neutrophils % 61.2 %; Nucleated Red Blood Cells % 0 %; Platelet Count 236 10^3/cmm (130-400); Red Blood Count 5.19 10^6/uL (4.1-5.3)
[2022-04-28 18:17] LABS: HCG, Serum Qual Negative (Negative)
[2022-04-28 18:22] LABS: Alanine Aminotransferase 12 U/L (0-33); Albumin Level 5.2 g/dL (3.5-5.2); Alkaline Phosphatase 63 U/L (35-105); Aspartate Amino Transferase 15 U/L (0-32); Blood Urea Nitrogen 9 mg/dL (6-20); Carbon Dioxide 25 mmol/L (22-29); Chloride 100 mmol/L (98-107); Globulin 2.8 g/dL (1.3-4.6); Glomerular Filtration Rate 72.6 mL/min (90-130); Glucose 83 mg/dL (65-115); Lipase 32 U/L (13-60); Osmolality Calculated 284 mOsm/kg (285-295); Sodium 138 mmol/L (136-145); Total Bilirubin 0.4 mg/dL (0.15-1.2)
[2022-04-28] MEDS: iohexol 350 mg/mL 500 mL Btl (per mL) IV (18:32)
[2022-04-28 18:47] LABS: Bilirubin Urine Neg (Negative); Blood Urine Neg (Negative); Glucose Urine UA Norm (Normal); Ketones Urine Negative (Negative); Leukocyte Esterase Urine Negative (Negative); Nitrate Urine Negative (Negative); Protein Urine Neg (Negative); Specific Gravity, Urine 1.015 (1.005-1.030); Urine Appearance Cloudy (CLEAR); Urine Color Yellow (Yellow); Urobilinogen Urine Norm (Negative); pH Urine 5 (5-7)
[2022-04-28 18:48] LABS: Add Urine Microscopic? YES
[2022-04-28 18:51] LABS: Add Urine Culture? No; Bacteria Urine 2+ /hpf; Squamous Epithelial Cell Urine >100 /hpf (0-5); WBC Urine RARE /hpf (0-5)
[2022-04-28] MEDS: metoclopramide 5 mg/mL SDV 2 mL 10 MG IVP (19:07)
== END 2022-04-28 20:03 | disposition home or self-care (01) ==
PROVIDERS: Emergency Provider Physician Assistant; PCP Family Medicine
DX: K52.9 Noninfective gastroenteritis and colitis, unspecified (principal)
CPT/HCPCS: 74177; 80053; 81001; 83690; 84703; 85025; 96361; 96374; 96375; 99285; J2270; J2405; J2765; J7030; Q9967

== ENCOUNTER 2022-07-01 09:32 | Outpatient (CLI) | payer BC, MEDICARE, MEDICAID, SELFPAY ==
--- NOTE | 2022-07-01 09:48 | XR_ITS ---
WS: [id number] Exam: XR thoracolumbar junct [id number] Date/Time of Exam: 07/01/2022 9:52 AM Reason For Exam: ARTHRODESIS STATUS There is interbody fusion of the spine at the T12-L1 level with pedicle screws and posterior rods. Th e fusion is in satisfactory alignment. There is slight degenerative narrowing of the T12-L1 disc with spondylosis. No sign of hardware failure. XR/XR thoracolumbar junct [id number] IMPRESSION: 1. Posterior interbody fusion at the T12-L1 in satisfactory alignment.
== END 2022-07-01 09:33 | disposition home or self-care (01) ==
LOC: RAD 09:39
PROVIDERS: PCP Family Medicine; Visit Provider Nurse Practitioner Family
DX: Z98.1 Arthrodesis status (principal)
CPT/HCPCS: 72080

== ENCOUNTER 2022-07-19 15:14 | Outpatient (CLI) | payer BC, MEDICARE, MEDICAID, SELFPAY ==
--- NOTE | 2022-07-19 | CT_ITS ---
WS: [id number] CT LUMBAR SPINE, noncontrast. HISTORY: LOW BACK PAIN TECHNIQUE: Contiguous 2.0 mm axial imaging are performed. Sagittal and coronal reformats are submitte d and reviewed. All CT scans at [facility] use at least one of these dose optimization techni ques: automated exposure control; mA and/or kV adjustment per patient size (includes targeted exams w here dose is matched to clinical indication); or iterative reconstruction. IV contrast: None DLP: 295.05 mGy.cm COMPARISON: 05/30/2008 and radiographs 07/01/2022 Status post posterior lumbar fusion at T12-L1. No lucency around the pedicle screws at T12 or L1. No hardware fractures. L1-2: Normal. L2-3: Mild disc bulging. No stenosis. L3-4: Normal. L4-5: Very mild disc bulging with a shallow RIGHT foraminal disc protrusion. No high-grade stenosis. Mild bilateral foraminal stenosis. L5-S1: Mild annular disc bulging. Very mild bilateral foraminal stenosis. Visualized retroperitoneum is normal. CT/CT lumbar spine wo con* [id number] IMPRESSION: 1. Posterior thoracolumbar fusion at T12-L1 appears intact. No complications a re evident. 2. Very mild bilateral foraminal stenosis at L4-5 and L5-S1. 3. No significant stenosis.
== END 2022-07-19 15:15 | disposition home or self-care (01) ==
PROVIDERS: PCP Family Medicine; Visit Provider Nurse Practitioner Family
DX: M48.061 Spinal stenosis, lumbar region without neurogenic claudication (principal); Z98.1 Arthrodesis status
CPT/HCPCS: 72131

== ENCOUNTER → 2022-10-28 12:31 | Outpatient (BNVA) | payer MEDICARE, MEDICAID, SELFPAY | PROVIDERS: PCP Family Medicine; Visit Provider Nurse Practitioner Family | DX: M79.645 Pain in left finger(s) (principal) | CPT/HCPCS: 73130 ==

== ENCOUNTER → 2022-12-12 07:41 | Outpatient (BNVA) | payer MEDICARE, MEDICAID, SELFPAY | PROVIDERS: PCP Family Medicine; Visit Provider Specialist | DX: G56.00 Carpal tunnel syndrome, unspecified upper limb (principal); M79.645 Pain in left finger(s) | CPT/HCPCS: 95910 ==

== ENCOUNTER 2023-03-28 13:54 | Emergency (ER) | payer MEDICARE, SELFPAY ==
[2023-03-28 14:12] VITALS: BP 119/76; PULSE 87; RESP 14; TEMP 36.7; O2SAT 100
--- NOTE | 2023-03-28 14:29 | ED_ITS ---
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 Last tetanus is unknown. Onset (ago): hour(s) Extremity Location: Right: hand (thumb) Place: home Patient tetanus UTD: No Context: accidental Associated symptoms: Reports no associated symptoms Treatments prior to arrival: bandage Review of Systems Musc: Reports: extremity pain (R thumb) Skin/Breast: Reports: other (laceration R thumb) Neuro: Denies: numbness in extremities or sensory changes PFSH ED PFSH: Medical History Acute bronchitis and bronchiolitis Acute blood loss anemia Uterine prolapse Grade 3 Abnormal uterine bleeding (AUB) No pertinent past medical history Denies diabetes, hypertension, seizures, DVT/PE PCP: Dr. Summers Psychiatric care COVID-19 Intervertebral disc disorders with radiculopathy, lumbosacral region Recurrent UTI Nicotine dependence, cigarettes, with unspecified nicotine-induced disorders Gastritis and duodenitis History of eating disorder Nicotine dependence, cigarettes, uncomplicated Panic disorder Major depressive disorder, recurrent severe without psychotic features Chronic post-traumatic stress disorder Surgical History S/P hysterectomy with oophorectomy S/P tonsillectomy S/P tubal ligation laparoscopic procedure, performed in 2014 History of back surgery 2020--T12 and L1 H/O ureter repair History of colonoscopy (~2015) History of laparoscopic cholecystectomy History of esophagogastroduodenoscopy (EGD) (~11/2019) Family History Mother Chronic kidney disease (CKD) Stroke Ovarian cancer diagnosed at age 32 or 33 Grandfather No problems noted. Grandmother Diabetes paternal Ovarian cancer maternal, age at diagnosis unknown Father Hyperlipidemia Stroke Family/Other Ovarian cancer maternal aunt, age age at diagnosis unknown Denies family history of Colon cancer Heart disease Hypertension Uterine cancer Thyroid disease Social History Substance/Drug Use: never Physical Exam Const: COMMON NORMALS: no acute distress, average body habitus, patient oriented x3, no limitations, healthy appearing, alert and well nourished Extremity: COMMON NORMALS: capillary refill normal GENERAL: Yes normal exam except as noted RIGHT UPPER EXTREMITY: Yes hand & digits (1cm laceration overlying R thumb IP joint) Right hand and digits: Yes inspection (appears to have lacerated extensor tendon), Yes ROM exam (has good ROM but weakness against resistance extension, adduction) and Yes neurovascular exam (normal) Neuro: COMMON NORMALS: patient oriented x3 SENSORIUM/ORIENTATION: Yes alert Skin: TRAUMA: laceration (R thumb) Course Vital Signs: Vital signs: Vital Signs Temperature 98.0 F 03/28/23 14:12 Pulse Rate 87 03/28/23 14:12 Respiratory Rate 14 03/28/23 14:12 Blood Pressure 119/76 03/28/23 14:12 Pulse Oximetry 100 03/28/23 14:12 Oxygen Delivery Me thod Room Air 03/28/23 14:12 MDM - Wound/Laceration Medical Decision Making Patient here for evaluation of a laceration overlying the dorsal aspect of her right IP joint of her thumb. There does appear to be a laceration of an extensor tendon. This would either be her extensor pollicis longus or pollicis brevis. ROM is full but she does have weakness to extension and adduction. Wound was loosely approximated after being copiously irrigated. She will be placed in a finger splint. She will follow-up with orthopedics/Dr. Jane. She will be placed on antibiotics. XR interpretation done by ED provider, pending radiology final review Discharge Plan Discharge Patient Disposition: Home Clinical Impression: Laceration of right thumb with tendon involvement Qualifiers: Encounter type: initial encounter Qualified Code(s): S61.011A - Laceration without foreign body of right thumb without damage to nail, initial encounter Condition: Stable Prescriptions: New cephalexin 500 mg capsule 500 mg PO Q6H 7 Days Qty: 28 0RF No Action tizanidine [Zanaflex] 4 mg capsule 4 mg PO Q6H PRN (Reason: Spasms) hydroxyzine pamoate 25 mg capsule 25 mg PO BID PRN (Reason: anxiety) Qty: 60 3RF Rx Instructions: Take one capsule twice per day as needed for anxiety naloxone [Narcan] 4 mg/actuation spray,non-aerosol 4 mg intranasal Q2M PRN (Reason: opioid overdose) Qty: 2 2RF Rx Instructions: spray 1 dose into 1 nostril alternate nostrils w ea dose until help arrive hydrocodone-acetaminophen 7.5-325 mg tablet 1 tab PO TID PRN (Reason: Pain) sucralfate [Carafate] 1 gram tablet 1 g PO DAILY Rx Instructions: TAKE 1 TABLET BY MOUTH TWICE DAILY dicyclomine 20 mg tablet 20 mg PO QID PRN (Reason: Abdominal cramping) Qty: 20 0RF Discharge Orders: Discharge ED (Routine); Ordered 03/28/23 Ordered By: Mariel Stevens Referrals: Mattie Summers DO [Primary Care Provider] - Activity Restrictions/Additional Instructions: Your x-ray today was negative for acute fracture. As we discussed I suspect that you have lacerated an extensor tendon on your thumb. Stay in your finger splint until you are seen by orthopedics. They will be able to assess and determine further whether there is tendon involvement. They may also remove your sutures. Keep wound clean with warm soap and water. Monitor for signs of infection such as redness, swelling, purulent drainage, streaking up your arm. Please seek medical reevaluation if these occur. 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
--- NOTE | 2023-03-28 14:43 | XRR_ITS ---
PROCEDURE INFORMATION: Exam: XR Right Finger(s) Exam date and time: 03/28/2023 4:07 PM Age: 32 years old Clinical indication: Injury or trauma; Other: Laceration; Finger; Right; Thumb; Additional info: Laceration/thumb TECHNIQUE: Imaging protocol: Radiologic exam of the right fingers. Views: Minimum 2 views. COMPARISON: No relevant prior studies available. FINDINGS: Bones/joints: Normal. Soft tissues: Normal. XR/XR finger RT min 2V [id number] IMPRESSION: No acute findings.
[2023-03-28] MEDS: tetanus-dipt-pertussis 0.5 mL SDV IM (15:04)
--- NOTE | 2023-03-28 16:09 | DCPLANNER ---
Message was sent to ortho on 03/28/23 at [id number]. Clinic to contact patient.
[2023-03-28 16:39] VITALS: BP 117/74; PULSE 74; O2SAT 100
== END 2023-03-28 16:41 | disposition home or self-care (01) ==
PROVIDERS: Emergency Provider Physician Assistant; PCP Family Medicine
DX: S61.011A Laceration without foreign body of right thumb without damage to nail, initial encounter (principal); S66.221A Laceration of extensor muscle, fascia and tendon of right thumb at wrist and hand level, initial encounter; W26.8XXA Contact with other sharp object(s), not elsewhere classified, initial encounter; Z23 Encounter for immunization
CPT/HCPCS: 12001; 73140; 90471; 90715; 99283

== ENCOUNTER → 2023-04-08 09:21 | Outpatient (BNVA) | payer MEDICARE, SELFPAY | PROVIDERS: PCP Family Medicine; Referring Provider Physician Assistant; Visit Provider Student in an Organized Health Care Education/Training Program | DX: S69.91XA Unspecified injury of right wrist, hand and finger(s), initial encounter; S66.221A Laceration of extensor muscle, fascia and tendon of right thumb at wrist and hand level, initial encounter; W26.8XXA Contact with other sharp object(s), not elsewhere classified, initial encounter | CPT/HCPCS: 99204 ==

== ENCOUNTER 2023-04-09 12:58 | Day surgery (SDC) | payer MEDICARE, SELFPAY ==
--- NOTE | 2023-04-09 | XR_ITS ---
WS: [id number] 3 views of the right first finger, 04/09/2023 Clinical Data: GUMARO PICS Comparison: Right thumb, 03/28/2023 Findings: Dr. Jane inserted a longitudinal orthopedic pin into the proximal and distal phalanges. Impression: Internal fixation of IP joint of the right thumb.
[2023-04-09 13:21] VITALS: BMI 21.9
[2023-04-09] MEDS: sodium chloride 0.9% 1,000 ML 30 ML IV (13:29)
[2023-04-09] MEDS: acetaminophen 1,000 MG/100 ML PIGGYBACK 400 MG IV (13:30)
[2023-04-09] MEDS: ketorolac 30 mg/mL INJ IVP (13:30)
[2023-04-09] MEDS: scopolamine 1.5 Patch 1 PATCH TRANSDERMA (13:31)
[2023-04-09 13:54] VITALS: BP 120/78; PULSE 80; RESP 18; TEMP 36.6; O2SAT 100
--- NOTE | 2023-04-09 14:24 | P.ANESASSM_ITS ---
Pre-Anesthetic Assessment Height/Weight: Height 1.7 m Weight 63.503 kg Temp Pulse Resp BP Pulse Ox O2 Del Method 97.8 F 80 18 120/78 100 Room Air 04/09/23 13:54 04/09/23 13:54 04/09/23 13:54 04/09/23 13:54 04/09/23 13:54 04/09/23 13:54 Operation Date: 04/09/23 14:35 Proposed Procedures s Debridement Upper Extremity And Irrigation(right Thumb)(Right) - Kaveh Lucinda, DO p Possible EPL Tendon Repair(right thumb)(Right) - Kaveh [place], DO Familial anesthetic complications: None Was Beta Kaci taken within 24 hours: N/A Was Clonidine taken within 24 hours: N/A Last intake: Intake Last Liquid Date 04/08/23 Last Liquid Time 23:00 Last Solid Date 04/08/23 Last Solid Time 23:00 Social Tobacco and No alcohol Exam alert, oriented x 3, clear to auscultation bilaterally and regular rate & rhythm Airway Mallampati: Class I Dentition: full Anesthetic Plan ASA status: 1 Anesthesia: Choice Risk of > 500 ml blood loss (7ml/kg in children): No Medications/Allergies Home Medications Medication Instructions Recorded Confirmed Last Taken Type tizanidine 4 mg capsule (Zanaflex) 4 mg PO Q6H PRN Spasms 06/15/20 04/08/23 04/08/23 History hydrocodone 7.5 mg-acetaminophen 1 tab PO TID PRN Pain 10/29/21 04/08/23 04/09/23 12:00 History 325 mg tablet sucralfate 1 gram tablet (Carafate) 1 g PO DAILY 10/29/21 04/08/23 04/08/23 History naloxone 4 mg/actuation nasal 4 mg intranasal Q2M PRN opioid 02/07/22 04/09/23 Unknown Rx spray (Narcan) overdose #2 ea dicyclomine 20 mg tablet 20 mg PO QID PRN Abdominal 04/28/22 04/08/23 04/08/23 Rx cramping #20 tabs hydroxyzine pamoate 25 mg capsule 25 mg PO BID PRN anxiety #60 caps 05/08/22 04/08/23 04/08/23 Rx finger splint #1 ea 04/08/23 04/08/23 Unknown Rx Allergies Allergy/AdvReac Type Severity Reaction Status Date / Time cefaclor [From Ceclor] Allergy Unknown Unknown--diagnosed Verified 04/09/23 13:19 with allergy testing Penicillins Allergy Unknown Hives---can Verified 04/09/23 13:19 take Keflex and amoxicillin Sulfa (Sulfonamide Allergy Unknown hives Verified 04/09/23 13:19 Antibiotics) zolpidem [From Ambien] AdvReac hallucinations Verified 04/09/23 13:19 and nightmares Current Medications Generic Name Dose Route Start Last Admin Trade Name Freq PRN Reason Stop Dose Admin Sodium Chloride 1,000 mls @ 30 mls/hr 04/09/23 13:30 04/09/23 13:29 Sodium Chloride 0.9% IV 04/10/23 13:29 30 mls/hr .Q24H BLAKE Administration PFSH Anesthesia Medical History Acute bronchitis and bronchiolitis Acute blood loss anemia Uterine prolapse Grade 3 Abnormal uterine bleeding (AUB) No pertinent past medical history Denies diabetes, hypertension, seizures, DVT/PE PCP: Dr. [facility] COVID-19 Intervertebral disc disorders with radiculopathy, lumbosacral region Recurrent UTI Nicotine dependence, cigarettes, with unspecified nicotine-induced disorders Gastritis and duodenitis History of eating disorder Nicotine dependence, cigarettes, uncomplicated Panic disorder Major depressive disorder, recurrent severe without psychotic features Chronic post-traumatic stress disorder Surgical History S/P hysterectomy with oophorectomy S/P tonsillectomy S/P tubal ligation laparoscopic procedure, performed in 2014 History of back surgery 2020--T12 and L1 H/O ureter repair History of colonoscopy (~2015) History of laparoscopic cholecystectomy History of esophagogastroduodenoscopy (EGD) (~11/2019) Family History Mother Chronic kidney disease (CKD) Stroke Ovarian cancer diagnosed at age 32 or 33 Grandfather No problems noted. Grandmother Diabetes paternal Ovarian cancer maternal, age at diagnosis unknown Father Hyperlipidemia Stroke Family/Other Ovarian cancer maternal aunt, age age at diagnosis unknown Denies family history of Colon cancer Heart disease Hypertension Uterine cancer Thyroid disease Social History Substance/Drug Use: never Data Anesthesia Cardiac Studies: No Data to Display
--- NOTE | 2023-04-09 14:44 | W.PM.OPSUD ---
Surgery/Procedure H&P Update DATE OF PROCEDURE: April 09, 2023 DATE H&P PERFORMED: 04/08/23 H&P UPDATE INFORMATION: I have reviewed H&P completed within last 30 days, I have examined patient prior to procedure and No changes to prior documentation PREOP DIAGNOSIS: Right thumb laceration with possible tendon injury PRIMARY INDICATION FOR PROCEDURE: Right dorsal thumb laceration with possible tendon injury PLANNED PROCEDURE: Operation Date: 04/09/23 14:35 Proposed Procedures s Debridement Upper Extremity And Irrigation(right Thumb)(Right) - Kaveh Jane DO p Possible EPL Tendon Repair(right thumb)(Right) - Kaveh Jane DO
[2023-04-09] MEDS: clindamycin 600 MG/50 ML PREMIX 30 MG IV (15:14)
[2023-04-09] MEDS: ROPivacaine 0.5% SDV 30 mL 25 MG INJECTION (15:59)
[2023-04-09] MEDS: lidocaine 2% INJ 20 mL 5 ML INJECTION (15:59)
--- NOTE | 2023-04-09 16:27 | P.BOP_ITS ---
Date of Procedure: 04/09/2023 Surgeon: Kaveh Jane DO Self Pay Representative(s): MATI Padron Procedure(s) performed: Right thumb irrigation and debridement 4 cm x 2 cm x 0.5 cm Right thumb EPL extensor tendon repair Right thumb percutaneous pinning DIP joint Findings of the procedure(s): Patient was found to have 90% extensor tendon laceration of the EPL tendon over the dorsal aspect of zone 2 extensor tendon laceration. Patient underwent standard repair of the extensor tendon and DIP joint pinning to protect repair she underwent procedure without complications or any issues thumb spica on and in place she will follow-up in the office in 2 weeks plan for pin removal at 6 weeks Estimated blood loss: 1 mL Specimen(s) removed: None Post-operative diagnosis: Right thumb EPL tendon laceration
--- NOTE | 2023-04-09 16:30 | PM.OP ---
Operative Report Date of procedure: April 09, 2023 Pre-op diagnosis: Right thumb dorsal laceration zone 2 Post-op diagnosis: Right thumb dorsal laceration zone 2 extensor tendon laceration Post-op findings: See operative report narrative Procedure done: Right thumb irrigation and debridement 4 cm x 2 cm x 0.5 cm Right thumb EPL extensor tendon repair Right thumb percutaneous pinning DIP joint Implants: 1 time 0.45 K wire Specimens removed/disposition: None Surgeon: Kaveh Jane DO Senior Construction Project Manager: Jose Jane PA-C: MATI was necessary for assistance in this case with hand positioning to execute the procedure, retraction and protection of neurovascular structures as well as to assist with wound closure and dressing application. Anesthesia: MAC and Local Estimated blood loss: 1 mL 28 minutes IV fluids: 600 mL Complications: None Findings: See operative report narrative Condition: stable Disposition: same day Brief History: Patient is a pleasant 32-year-old female who sustained a zone 2 dorsal laceration of the right thumb. She subsequently was splinted and sent for outpatient follow-up on my evaluation she has significant weakness of the right thumb dorsal aspect laceration concern for possible extensor tendon injury. Given patient's just within 2 weeks out her weakness and concern for extensor tendon injury would recommend exploration possible tendon repair. She understands the ins and outs of procedure risk benefits complication alternatives surgery through the shared decision make she elects proceed with surgical intervention all questions answered at this time. Elects proceed with surgery for right thumb irrigation debridement possible tendon repair. Procedure: Patient seen eval in the preoperative holding area. Consent was reviewed and signed with patient correct extremity and digit/marked. She underwent evaluation by the anesthesia team once cleared for anesthesia and surgical intervention she was taken back to the operative suite kept on [facility] armboard applied to the right upper extremity. Patient underwent anesthesia per the anesthesia part once appropriate anesthetized patient's right upper extremity had a nonsterile tourniquet applied. Patient right lower extremities then prepped and draped in standard orthopedic fashion. Final timeout performed. Patient received appropriate preoperative antibiotics. Patient underwent sterile local anesthesia for digital block to the right thumb. Once appropriately anesthetized Esmarch was used exsanguinate the right upper extremity and tourniquet was insufflated to 250 mmHg. Utilize scalpel to remove the previous sutures in place and then subsequently made a Renetta extended incision both proximally and distally to create full-thickness skin flaps over the previous laceration. I then came directly over the extensor tendon 90% of the EPL tendon was noticed of being lacerated at this point time decision was made for an extensor tendon repair. I utilized thorough irrigation prior to repair performed I&D of 4 cm x 2 cm x 0.5 cm debridement of skin subcutaneous tissue fascia and tendon as well as synovium. Once appropriately debrided and prepped for repair I then subsequently used 4-0 FiberWire in standard locking modified Lynn fashion with a total of 4 core strand repair. This had excellent opposition the repair was then stressed. I then subsequently utilized 6-0 Prolene suture for my epitendinous stitch to increase strength and tubularization. Once this was done I then stressed the repair and this was noted to be remaining intact in order to protect the repair I then subsequently elected to place a 0.45 K wire pin in retrograde fashion through the DIP joint. I did this under live fluoroscopic mini C arm imaging and subsequently placed a DIP pin percutaneously through the distal phalanx retrograde through the DIP joint and into the proximal phalanx of the right thumb this held and protected my repair the pin was then subsequently bent cut and capped appropriately. Final x-rays were then taken showing appropriate positioning and the tendon repair was complete. Then thoroughly irrigation performed tourniquet deflated hemostasis satisfactory with bipolar electrocautery as well a standard interrupted nylon sutures were used to close the skin. Patient was then dressed with Xeroform 4 x 4's Marga wrap soft roll Curlex as well as a thumb spica splint applied. Patient was then awakened from anesthesia and taken back in stable condition. Patient tolerated procedure without any complications. Disposition: Patient taken back in stable condition recovering well. Patient be nonweightbearing to the right hand maintain splint until follow-up will receive appropriate discharge directions pain medication and prophylactic antibiotics on discharge. She will follow-up in the orthopedic office in 2 weeks. Patient understands agrees current plan. Questions answered.
[2023-04-09 16:38] VITALS: BP 136/99; PULSE 107; RESP 16; TEMP 36.1; O2SAT 97
[2023-04-09 16:44] VITALS: BP 118/72; PULSE 90; RESP 16; O2SAT 99
--- NOTE | 2023-04-09 16:44 | PM.PACU ---
PACU note Narrative: Patient is a 32-year-old female just underwent a right thumb I&D and tendon repair. Patient transferred to PACU in stable condition. Pain is well controlled. Dressing and splint on hand is dry and in place. Patient's fingers are warm and well-perfused. Patient can wiggle fingers. normal cap refill under 2 seconds. Patient has normal elbow range of motion. sensation to hand is intact. Exam: awake Disposition: discharged
[2023-04-09 16:51] VITALS: BP 122/71; PULSE 78; RESP 16; O2SAT 99
[2023-04-09 17:15] VITALS: BP 139/88; PULSE 59; RESP 16; O2SAT 100
[2023-04-09] MEDS: hyDROXYzine 25 mg Capsule PO (17:20)
[2023-04-09 17:30] VITALS: BP 136/88; PULSE 61; RESP 16; O2SAT 99
--- NOTE | 2023-04-09 17:35 | ANE.PACU2 ---
Inpatient post-anesthesia follow up: Airway intact: Yes Vital signs: Temperature 97 F Pulse Rate 61 Respiratory Rate 16 Blood Pressure 136/88 Pulse Oximetry 99 Oxygen Delivery Me thod Room Air Oxygen Flow Rate Fraction of Inspir ed Oxygen Hydration adequate: Yes Nausea and vomiting: No Pain level: 1 Mental status: Baseline
== END 2023-04-09 17:34 | disposition home or self-care (01) ==
PROVIDERS: PCP Family Medicine; Visit Provider Student in an Organized Health Care Education/Training Program
PROC: (CPT 26418; principal; 2023-04-09 14:25)
PROC: (CPT 26418; 2023-04-09 14:25)
PROC: (CPT 26418; 2023-04-09 14:25)
DX: S61.011A Laceration without foreign body of right thumb without damage to nail, initial encounter (principal); S66.221A Laceration of extensor muscle, fascia and tendon of right thumb at wrist and hand level, initial encounter; X58.XXXA Exposure to other specified factors, initial encounter; Z86.16 Personal history of COVID-19; F17.219 Nicotine dependence, cigarettes, with unspecified nicotine-induced disorders
CPT/HCPCS: 26418; 26432; 73140; 76000; C1713; J0131; J1885; J2250; J2704; J2795; J3010; J3490; J7030

== ENCOUNTER 2023-04-24 06:00 | Outpatient (RCR) | payer MEDICARE, SELFPAY | END 2023-05-08 23:59 | disposition home or self-care (01) | LOC: SOT 06:00 | PROVIDERS: Visit Provider Student in an Organized Health Care Education/Training Program | DX: Z47.89 Encounter for other orthopedic aftercare (principal); Z98.890 Other specified postprocedural states | CPT/HCPCS: 97110; 97140; 97165; 97760; 99024; 99213; L3807 ==

== ENCOUNTER 2023-05-09 06:00 | Outpatient (RCR) | payer MEDICARE, SELFPAY | END 2023-06-08 23:59 | disposition home or self-care (01) | LOC: SOT 06:00 | PROVIDERS: Visit Provider Student in an Organized Health Care Education/Training Program | DX: Z47.89 Encounter for other orthopedic aftercare (principal); Z98.890 Other specified postprocedural states | CPT/HCPCS: 97022; 97110; 97140 ==

== ENCOUNTER → 2023-05-27 10:20 | Outpatient (BNVA) | payer MEDICARE, SELFPAY | PROVIDERS: Visit Provider Student in an Organized Health Care Education/Training Program | DX: Z98.890 Other specified postprocedural states (principal) | CPT/HCPCS: 20670; 73130; 99024; 99213 ==

== ENCOUNTER 2023-06-09 06:00 | Outpatient (RCR) | payer MEDICARE, SELFPAY | END 2023-07-08 23:59 | disposition home or self-care (01) | LOC: SOT 06:00 | PROVIDERS: Visit Provider Student in an Organized Health Care Education/Training Program | DX: Z47.89 Encounter for other orthopedic aftercare (principal); Z98.890 Other specified postprocedural states | CPT/HCPCS: 97022; 97110; 97140 ==

== ENCOUNTER → 2023-07-08 13:51 | Outpatient (BNVA) | payer MEDICARE, SELFPAY | PROVIDERS: PCP Family Medicine; Visit Provider Student in an Organized Health Care Education/Training Program | DX: Z98.890 Other specified postprocedural states (principal) | CPT/HCPCS: 99213 ==

== ENCOUNTER 2023-09-01 19:30 | Emergency (ER) | payer MEDICARE, SELFPAY ==
[2023-09-01 19:46] VITALS: BP 118/79; PULSE 74; RESP 18; TEMP 36.6; O2SAT 100; BMI 21.9
--- NOTE | 2023-09-01 20:05 | XRR_ITS ---
PROCEDURE INFORMATION: Exam: XR Lumbosacral Spine Exam date and time: 09/01/2023 8:31 PM Age: 33 years old Clinical indication: Low back pain; Prior surgery; Surgery date: 6+ months; Surgery type: Lumbar partial hyst; Additional info: Pain popping when bent over, HX of surgery TECHNIQUE: Imaging protocol: Radiologic exam of the lumbosacral spine. Views: 2 or 3 views. COMPARISON: CT abdomen pelvis w con* [id number] 04/28/2022 6:29 PM FINDINGS: Bones/joints: Slight levoscoliosis with a slight rotatory component. Status post posterior T12-L1 fusion. No acute fracture. Mild multilevel degenerative change. Soft tissues: Moderate retained colonic stool. XR/XR lumbar spine 2-3V* [id number] IMPRESSION: No acute fracture.
[2023-09-01] MEDS: dexamethasone 10 mg/mL INJ IM (20:57)
--- NOTE | 2023-09-01 22:29 | ED_ITS ---
HPI - Back Pain/Injury General: Chief Complaint: Back Pain/Injury Stated Complaint: Mid/low back pain Time Seen by Provider: 09/01/23 20:27 Source: patient Mode of arrival: ambulatory Limitations: no limitations History of Present Illness: Patient is a 33-year-old female presenting to the emergency department complaining of lower back pain onset today. Patient has history of lumbar spinal fusion, states that she overworked herself today and is concerned that she might have done something to her hardware. She states that she chronically has back pain, though it is slightly worse today than normal. She does have pain meds and muscle relaxers at home, both of which she has not taken at this point. She states that she just presented to make sure that she is not making anything worse. She denies any distal neurovascular changes, saddle anesthesia, bowel or bladder incontinence, or any other concerning symptoms at this time. She has not seen her spine surgeon in some time. MD elicited complaint: back pain Pertinent past history: prior back pain and back surgery Onset (ago): hour(s) Timing: intermittent Severity: mild Similar Symptoms Previously: Yes Location: lumbar spine, right lower back and left lower back Radiation: none Exacerbating factors: movement Relieving factors: immobilization Context: while lifting Associated symptoms: Reports no associated symptoms; Deny abdominal pain, chills, dysuria, fatigue, fever(s), nausea or vomiting Review of Systems General: Reports: 10 or more systems reviewed and unremarkable except in HPI and below Const: Denies: fever(s), chills or fatigue Eyes: Denies: change in vision ENMT: Denies: throat pain, ear or mastoid pain or nasal discharge Card: Denies: chest pain, palpitations, swelling of feet/ankles or lightheadedness Resp: Denies: dyspnea, productive cough or wheezing GI: Denies: abdominal pain, nausea, vomiting, diarrhea or constipation : Denies: flank pain, difficulty voiding, dysuria or urinary frequency Musc: Reports: back pain; Denies: neck pain or joint pain Skin/Breast: Denies: rash Neuro: Denies: headache(s), numbness in extremities or weakness in extremities PFSH ED PFSH: Medical History Acute bronchitis and bronchiolitis Acute blood loss anemia Uterine prolapse Grade 3 Abnormal uterine bleeding (AUB) No pertinent past medical history Denies diabetes, hypertension, seizures, DVT/PE PCP: Dr. [facility] COVID-19 Intervertebral disc disorders with radiculopathy, lumbosacral region Recurrent UTI Nicotine dependence, cigarettes, with unspecified nicotine-induced disorders Gastritis and duodenitis History of eating disorder Nicotine dependence, cigarettes, uncomplicated Panic disorder Major depressive disorder, recurrent severe without psychotic features Chronic post-traumatic stress disorder Surgical History S/P hysterectomy with oophorectomy S/P tonsillectomy S/P tubal ligation laparoscopic procedure, performed in 2014 History of back surgery 2020--T12 and L1 H/O ureter repair History of colonoscopy (~2015) History of laparoscopic cholecystectomy History of esophagogastroduodenoscopy (EGD) (~11/2019) Family History Mother Chronic kidney disease (CKD) Stroke Ovarian cancer diagnosed at age 32 or 33 Grandfather No problems noted. Grandmother Diabetes paternal Ovarian cancer maternal, age at diagnosis unknown Father Hyperlipidemia Stroke Family/Other Ovarian cancer maternal aunt, age age at diagnosis unknown Denies family history of Colon cancer Heart disease Hypertension Uterine cancer Thyroid disease Social History Smoking and tobacco/nicotine status: current every day tobacco/nicotine user Alcohol intake: never Substance/Drug Use: never Physical Exam Const: COMMON NORMALS: no acute distress, patient oriented x3 and no limitations GENERAL APPEARANCE: cooperative, comfortable and well developed ORIENTATION/CONSCIOUSNESS: Yes awake, Yes oriented to person, Yes oriented to place and Yes oriented to time HENMT: COMMON NORMALS: normocephalic, atraumatic and hearing grossly normal bilaterally HEAD & SCALP: normocephalic and atraumatic Eye: COMMON NORMALS: Equal, round and reactive pupils present, EOMs intact bilaterally and conjunctivae normal CONJUNCTIVA: Yes conjunctivae normal P UPIL: Yes Equal, round and reactive pupils present Neck/C-Spine: COMMON NORMALS: full ROM, supple and no JVD Resp: COMMON NORMALS: normal respiratory effort, No retractions, No use of accessory muscles and clear to auscultation bilaterally AUSCULTATION: clear to auscultation bilaterally Cardio: COMMON NORMALS: no JVD, regular rate, regular rhythm, No clicks present (Cardio), No murmurs present (Cardio) and No rub (Cardio) RATE: regular rate RHYTHM: regular rhythm Back/Pelvis: OTHER: Postoperative scar midline lower back. Mild reproducible tenderness palpation about the bilateral paralumbar muscles. No spinous process tenderness. No palpable deformity. Normal thoracolumbar range of motion. Extremity: COMMON NORMALS: normal to inspection, full ROM and capillary refill normal Neuro: COMMON NORMALS: patient oriented x3, moves all extremities, no focal motor deficits, no sensory deficits noted and deep tendon reflexes 2+ bilaterally SENSORIUM/ORIENTATION: Yes oriented to person, Yes oriented to place and Yes oriented to time Psych: COMMON NORMALS: mental status grossly normal and Normal thought process present THOUGHT PROCESS: Normal thought process present Skin: COMMON NORMALS: no rashes or lesions noted GENERAL SKIN EXAM: no rashes or lesions noted Course Vital Signs: Vital signs: Vital Signs Temperature 97.9 F 09/01/23 19:46 Pulse Rate 74 09/01/23 19:46 Respiratory Rate 18 09/01/23 19:46 Blood Pressure 118/79 09/01/23 19:46 Pulse Oximetry 100 09/01/23 19:46 Oxygen Delivery Me thod Room Air 09/01/23 19:46 MDM - Back Pain/Injury Medical Decision Making Patient presented for evaluation of acute on chronic back pain, wanted to make sure that she was not making anything worse. She did not have any red flag back symptoms to report. She did not take any pain medications or muscle relaxers at home that she has prescribed. She is given a shot of Decadron here in the emergency department and x-rays obtained that did not demonstrate any acute fracture or hardware abnormality. Will send prescription for prednisone, as she likely is dealing with acute on chronic exacerbation, and informed her to follow-up with her spine surgeon in [place]. She will do so and reasons to return discussed. Labs Radiology Impressions Lumbar Spine X-Ray 09/01/23 20:05 IMPRESSION: No acute fracture. All radiology interpretation(s) finalized by discharge Discharge Plan Discharge Patient Disposition: Home Clinical Impression: Chronic bilateral low back pain Condition: Stable Prescriptions: New prednisone 20 mg tablet 60 mg PO ONCE 5 Days Qty: 15 0RF No Action tizanidine [Zanaflex] 4 mg capsule 4 mg PO Q6H PRN (Reason: Spasms) naloxone [Narcan] 4 mg/actuation spray,non-aerosol 4 mg intranasal Q2M PRN (Reason: opioid overdose) Qty: 2 2RF Rx Instructions: spray 1 dose into 1 nostril alternate nostrils w ea dose until help arrive (DME) finger splint Misc See Rx Instructions .Route Qty: 1 0RF Rx Instructions: As directed cholecalciferol (vitamin D3) 25 mcg (1,000 unit) capsule 25 mcg PO DAILY hydrocodone-acetaminophen 7.5-325 mg tablet 1 tab PO Q8H PRN (Reason: pain) Linzess 145 mcg capsule 145 mcg PO QAM hydroxyzine pamoate 25 mg capsule 25 mg PO BID PRN (Reason: anxiety) Qty: 60 3RF Rx Instructions: Take one capsule twice per day as needed for anxiety sucralfate [Carafate] 1 gram tablet 1 g PO DAILY Rx Instructions: TAKE 1 TABLET BY MOUTH TWICE DAILY dicyclomine 20 mg tablet 20 mg PO QID PRN (Reason: Abdominal cramping) Qty: 20 0RF Discharge Orders: Discharge ED (Routine); Ordered 09/01/23 Ordered By: Irving Magaña Referrals: Mattie Summers DO [Primary Care Provider] - Discharge Diet: Usual diet Discharge Activity: Increase activity as tolerated Patient Instructions: Back Pain (ED) Activity Restrictions/Additional Instructions: Continue your pain medications and muscle relaxers at home. Take steroids as prescribed. Follow-up with your spine surgeon at [place] as discussed. Please return with any new or worsening symptoms. 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
[2023-09-01 22:30] VITALS: PULSE 78; RESP 14; O2SAT 99
== END 2023-09-01 22:30 | disposition home or self-care (01) ==
PROVIDERS: Emergency Provider Physician Assistant; PCP Family Medicine
DX: G89.29 Other chronic pain (principal); M54.50 Low back pain, unspecified; Z72.0 Tobacco use
CPT/HCPCS: 72100; 96372; 99284; J1100

== ENCOUNTER 2023-11-22 04:02 | Emergency (ER) | payer MEDICARE, SELFPAY ==
[2023-11-22 04:07] VITALS: BP 124/75; PULSE 99; RESP 18; TEMP 36.3; O2SAT 100; BMI 21.9
--- NOTE | 2023-11-22 04:19 | ED_ITS ---
HPI - Allergic Reaction General: Chief complaint: Allergic Reaction Stated complaint: allergic reaction used epi Time Seen by Provider: 11/22/23 04:16 History of Present Illness: HPI narrative: 33-year-old female who presents to the e mergency room with a complaint of having had an allergic reaction. She has a history of alpha gal she is not sure what she ate or what she might of gotten counted with. States she felt like it tight sensation in her throat and a cough. She had no rash at any point she did give herself an EpiPen. She is feeling quite a bit better now she has not had any difficulty with cough or difficulty breathing she is not wheezing. Associated symptoms: Deny abdominal pain Related Data Home Medications Medication Instructions Recorded Confirmed tizanidine 4 mg capsule (Zanaflex) 4 mg PO Q6H PRN Spasms 06/15/20 11/17/23 sucralfate 1 gram tablet (Carafate) 1 g PO DAILY 10/29/21 11/17/23 cholecalciferol (vitamin D3) 25 25 mcg PO DAILY 05/27/23 11/17/23 mcg (1,000 unit) capsule hydrocodone 7.5 mg-acetaminophen 1 tab PO Q8H PRN pain 06/05/23 11/17/23 325 mg tablet linaclotide 145 mcg capsule 145 mcg PO QAM 06/05/23 11/17/23 (Linzess) Previous Rx's Medication Instructions Recorded naloxone 4 mg/actuation nasal 4 mg intranasal Q2M PRN opioid 02/07/22 spray (Narcan) overdose #2 ea dicyclomine 20 mg tablet 20 mg PO QID PRN Abdominal 04/28/22 cramping #20 tabs finger splint #1 ea 04/08/23 hydroxyzine pamoate 25 mg capsule 25 mg PO BID PRN anxiety #60 caps 06/05/23 azithromycin 250 mg tablet See Rx Instructions PO .COMPLEX #6 11/17/23 tabs cetirizine 10 mg tablet 10 mg PO BID #14 tabs 11/22/23 methylprednisolone 4 mg tablets in See Rx Instructions PO .COMPLEX 11/22/23 a dose pack (Medrol (Daniel)) #21 ea Allergies Allergy/AdvReac Type Severity Reaction Status Date / Time cefaclor [From [facility]] Allergy Unknown Unknown--diagnosed Verified 11/17/23 10:49 with allergy testing Penicillins Allergy Unknown Hives---can Verified 11/17/23 10:49 take Keflex and amoxicillin Sulfa (Sulfonamide Allergy Unknown hives Verified 11/17/23 10:49 Antibiotics) zolpidem [From Ambien] AdvReac hallucinations Verified 11/17/23 10:49 and nightmares alpha gal Allergy unknown Uncoded 11/17/23 10:49 Review of Systems Const: Denies: fever(s) or chills Card: Denies: chest pain Resp: Denies: dyspnea GI: Denies: abdominal pain : Denies: dysuria, urinary frequency or urinary urgency Musc: Denies: neck pain or back pain Skin/Breast: Denies: rash PFSH ED PFSH: Medical History Acute bronchitis and bronchiolitis Acute blood loss anemia Uterine prolapse Grade 3 Abnormal uterine bleeding (AUB) No pertinent past medical history Denies diabetes, hypertension, seizures, DVT/PE PCP: Dr. [facility] COVID-19 Intervertebral disc disorders with radiculopathy, lumbosacral region Recurrent UTI Nicotine dependence, cigarettes, with unspecified nicotine-induced disorders Gastritis and duodenitis History of eating disorder Nicotine dependence, cigarettes, uncomplicated Panic disorder Major depressive disorder, recurrent severe without psychotic features Chronic post-traumatic stress disorder Surgical History S/P hysterectomy with oophorectomy S/P tonsillectomy S/P tubal ligation laparoscopic procedure, performed in 2014 History of back surgery 2020--T12 and L1 H/O ureter repair History of colonoscopy (~2015) History of laparoscopic cholecystectomy History of esophagogastroduodenoscopy (EGD) (~11/2019) Family History Mother Chronic kidney disease (CKD) Stroke Ovarian cancer diagnosed at age 32 or 33 Grandfather No problems noted. Grandmother Diabetes paternal Ovarian cancer maternal, age at diagnosis unknown Father Hyperlipidemia Stroke Family/Other Ovarian cancer maternal aunt, age age at diagnosis unknown Denies family history of Colon cancer Heart disease Hypertension Uterine cancer Thyroid disease Social History Smoking and tobacco/nicotine status: unknown if used tobacco/nicotine Alcohol intake: never Substance/Drug Use: never Physical Exam Const: COMMON NORMALS: no acute distress GENERAL APPEARANCE: cooperative an d comfortable ORIENTATION/CONSCIOUSNESS: Yes awake, Yes oriented to person, Yes oriented to place and Yes oriented to time HENMT: COMMON NORMALS: normocephalic, atraumatic and hearing grossly normal bilaterally HEAD & SCALP: normocephalic and atraumatic Resp: COMMON NORMALS: normal respiratory effort, No retractions, No use of accessory muscles and clear to auscultation bilaterally AUSCULTATION: clear to auscultation bilaterally Cardio: COMMON NORMALS: regular rate, regular rhythm and No murmurs present (Cardio) RATE: regular rate RHYTHM: regular rhythm GI: COMMON NORMALS: Soft to palpation and No hepatosplenomegaly present AU SCULTATION: Yes normoactive bowel sounds PALPATION: Yes Soft to palpation, No Tenderness to palpation present (GI), No Guarding due to palpation present (GI) and Yes No hepatosplenomegaly present Extremity: COMMON NORMALS: normal to inspection, capillary refill normal, no clubbing, cyanosis or edema, no calf tenderness and no pedal edema Neuro: SENSORIUM/ORIENTATION: Yes oriented to person, Yes oriented to place and Yes oriented to time Skin: COMMON NORMALS: no rashes or lesions noted GENERAL SKIN EXAM: no rashes or lesions noted Course Vital Signs: Vital signs: Vital Signs Temperature 97.3 F L 11/22/23 04:07 Pulse Rate 82 11/22/23 05:53 Respiratory Rate 21 H 11/22/23 05:53 Blood Pressure 111/69 11/22/23 05:53 Pulse Oximetry 100 11/22/23 05:53 MDM - Allergic Reaction Medical Decision Making Patient already improved prior to review arrival with the EpiPen she was given Benadryl and platelets here observed for time she has not had any rebound she had no further symptoms she is feeling much better able to swallow water without difficulty repeat exam her lungs is clear. Discharge home steroid taper cetirizine twice daily for 7 to 10 days follow-up as needed Medical Records I reviewed the patient's medical records. Lab Data I reviewed the patient's lab results. All radiology interpretation(s) finalized by discharge Discharge Plan Discharge Patient Disposition: Home Clinical Impression: Allergic reaction, Allergy to alpha-gal Condition: Stable Prescriptions: New Medrol (Daniel) 4 mg tablets,dose pack See Rx Instructions .ROUTE .COMPLEX Qty: 21 0RF Rx Instructions: orally per package directions cetirizine 10 mg tablet 10 mg PO BID Qty: 14 0RF No Action tizanidine [Zanaflex] 4 mg capsule 4 mg PO Q6H PRN (Reason: Spasms) naloxone [Narcan] 4 mg/actuation spray,non-aerosol 4 mg intranasal Q2M PRN (Reason: opioid overdose) Qty: 2 2RF Rx Instructions: spray 1 dose into 1 nostril alternate nostrils w ea dose until help arrive (DME) finger splint Misc See Rx Instructions .Route Qty: 1 0RF Rx Instructions: As directed cholecalciferol (vitamin D3) 25 mcg (1,000 unit) capsule 25 mcg PO DAILY hydrocodone-acetaminophen 7.5-325 mg tablet 1 tab PO Q8H PRN (Reason: pain) Linzess 145 mcg capsule 145 mcg PO QAM hydroxyzine pamoate 25 mg capsule 25 mg PO BID PRN (Reason: anxiety) Qty: 60 3RF Rx Instructions: Take one capsule twice per day as needed for anxiety azithromycin 250 mg tablet See Rx Instructions PO .COMPLEX Qty: 6 0RF Rx Instructions: For 250 mg dose pack: take 500 mg today (day 1), then 250 mg for 4 days (days 2-5) PO sucralfate [Carafate] 1 gram tablet 1 g PO DAILY Rx Instructions: TAKE 1 TABLET BY MOUTH TWICE DAILY dicyclomine 20 mg tablet 20 mg PO QID PRN (Reason: Abdominal cramping) Qty: 20 0RF Discharge Orders: Discharge ED (Routine); Ordered 11/22/23 Ordered By: Huey Rolle Referrals: Mattie Summers DO [Primary Care Provider] - Discharge Diet: Usual diet Discharge Activity: Resume usual activity Patient Instructions: Opioid Safety, Pain Management Activity Restrictions/Additional Instructions: Thank you for choosing [facility] for your healthcare needs today. It is very important that you follow up as instructed or that you return to the Emergency Department should you have concerns or if your condition changes or worsens in any way. You were seen in the emergency room after allergic reaction. Improved after the epinephrine pen that you have administered herself as well as the Benadryl and steroids given after he arrived here. Recommend starting steroid taper beginning later today, also use cetirizine 5 to 10 mg twice a day. Return if you have further problems. 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
[2023-11-22] MEDS: methylPREDNISolone sod succ 125 MG in water for injection-sterile 2 ML 24 MG IVP (04:50)
[2023-11-22] MEDS: diphenhydrAMINE 50 mg/mL SDV 1mL IVP (04:52)
[2023-11-22 04:53] VITALS: BP 120/75; PULSE 82; RESP 18; O2SAT 100
[2023-11-22 05:53] VITALS: BP 111/69; PULSE 82; RESP 21; O2SAT 100
[2023-11-22 06:36] VITALS: BP 108/71; PULSE 81; RESP 18; O2SAT 100
== END 2023-11-22 06:38 | disposition home or self-care (01) ==
PROVIDERS: Emergency Provider Family Medicine; PCP Family Medicine
DX: T78.1XXA Other adverse food reactions, not elsewhere classified, initial encounter (principal); X58.XXXA Exposure to other specified factors, initial encounter; Z91.014 Allergy to mammalian meats
CPT/HCPCS: 96374; 96375; 99284; J1200; J2919

== ENCOUNTER 2023-12-01 19:19 | Emergency (ER) | payer MEDICARE, SELFPAY ==
[2023-12-01 19:26] VITALS: BP 119/70; PULSE 75; RESP 22; TEMP 36.6; O2SAT 100
--- NOTE | 2023-12-01 19:41 | ED_ITS ---
HPI - Allergic Reaction General: Chief complaint: Allergic Reaction Stated complaint: poss allergic reation, throat tight,hurts to breat Time Seen by Provider: 12/01/23 19:38 History of Present Illness: HPI narrative: 33-year-old female says she is having an allergic reaction. Apparently she has alpha gal. She says she feels like her throat is closing and she is short of breath and her chest is tight. Her blood pressure is normal her pulse was normal her respirations are normal. She has no rash. She took a Benadryl and a half of the prednisone at home but still feels bad. Related Data Home Medications Medication Instructions Recorded Confirmed tizanidine 4 mg capsule (Zanaflex) 4 mg PO Q6H PRN Spasms 06/15/20 11/17/23 sucralfate 1 gram tablet (Carafate) 1 g PO DAILY 10/29/21 11/17/23 cholecalciferol (vitamin D3) 25 25 mcg PO DAILY 05/27/23 11/17/23 mcg (1,000 unit) capsule hydrocodone 7.5 mg-acetaminophen 1 tab PO Q8H PRN pain 06/05/23 11/17/23 325 mg tablet linaclotide 145 mcg capsule 145 mcg PO QAM 06/05/23 11/17/23 (Linzess) Previous Rx's Medication Instructions Recorded naloxone 4 mg/actuation nasal 4 mg intranasal Q2M PRN opioid 02/07/22 spray (Narcan) overdose #2 ea dicyclomine 20 mg tablet 20 mg PO QID PRN Abdominal 04/28/22 cramping #20 tabs finger splint #1 ea 04/08/23 hydroxyzine pamoate 25 mg capsule 25 mg PO BID PRN anxiety #60 caps 06/05/23 azithromycin 250 mg tablet See Rx Instructions PO .COMPLEX #6 11/17/23 tabs cetirizine 10 mg tablet 10 mg PO BID #14 tabs 11/22/23 methylprednisolone 4 mg tablets in See Rx Instructions PO .COMPLEX 11/22/23 a dose pack (Medrol (Daniel)) #21 ea famotidine 40 mg tablet 40 mg PO DAILY #7 tabs 12/01/23 hydroxyzine HCl 25 mg tablet 25 mg PO Q8H PRN withdrawal 12/01/23 symptoms #30 tabs prednisone 20 mg tablet 60 mg (3 x 20 mg) PO DAILY #20 tabs 12/01/23 Allergies Allergy/AdvReac Type Severity Reaction Status Date / Time cefaclor [From Ceclor] Allergy Unknown Unknown--diagnosed Verified 11/17/23 10:49 with allergy testing Penicillins Allergy Unknown Hives---can Verified 11/17/23 10:49 take Keflex and amoxicillin Sulfa (Sulfonamide Allergy Unknown hives Verified 11/17/23 10:49 Antibiotics) zolpidem [From Ambien] AdvReac hallucinations Verified 11/17/23 10:49 and nightmares alpha gal Allergy unknown Uncoded 11/17/23 10:49 Review of Systems Narrative: Constitutional symptoms: Negative except as documented in HPI. Skin symptoms: Negative except as documented in HPI. Eye symptoms: Negative except as documented in HPI. ENMT symptoms: Negative except as documented in HPI. Respiratory symptoms: Negative except as documented in HPI. Cardiovascular symptoms: Negative except as documented in HPI. Gastrointestinal symptoms: Negative except as documented in HPI. Genitourinary symptoms: Negative except as documented in HPI. Musculoskeletal symptoms: Negative except as documented in HPI. Neurologic symptoms: Negative except as documented in HPI. Psychiatric symptoms: Negative except as documented in HPI. Endocrine symptoms: Negative except as documented in HPI. PFSH ED PFSH: Medical History Acute bronchitis and bronchiolitis Acute blood loss anemia Uterine prolapse Grade 3 Abnormal uterine bleeding (AUB) No pertinent past medical history Denies diabetes, hypertension, seizures, DVT/PE PCP: Dr. [facility] COVID-19 Intervertebral disc disorders with radiculopathy, lumbosacral region Recurrent UTI Nicotine dependence, cigarettes, with unspecified nicotine-induced disorders Gastritis and duodenitis History of eating disorder Nicotine dependence, cigarettes, uncomplicated Panic disorder Major depressive disorder, recurrent severe without psychotic features Chronic post-traumatic stress disorder Surgical History S/P hysterectomy with oophorectomy S/P tonsillectomy S/P tubal ligation laparoscopic procedure, performed in 2014 History of back surgery 2020--T12 and L1 H/O ureter repair History of colonoscopy (~2015) History of laparoscopic cholecystectomy History of esophagogastroduodenoscopy (EGD) (~11/2019) Family History Mother Chronic kidney disease (CKD) Stroke Ovarian cancer diagnosed at age 32 or 33 Grandfather No problems noted. Grandmother Diabetes paternal Ovarian cancer maternal, age at diagnosis unknown Father Hyperlipidemia Stroke Family/Other Ovarian cancer maternal aunt, age age at diagnosis unknown Denies family history of Colon cancer Heart disease Hypertension Uterine cancer Thyroid disease Social History Smoking and tobacco/nicotine status: unknown if used tobacco/nicotine Alcohol intake: never Substance/Drug Use: never Physical Exam Narrative: EXAM NARRATIVE: General: Alert, no acute distress. Skin: Warm, dry. Head: Normocephalic, atraumatic. Neck: Supple, trachea midline. Eye: Extraocular movements are intact. Ears, nose, mouth and throat: mucosa moist. Cardiovascular: Regular, Normal peripheral perfusion. Respiratory: Lungs are clear to auscultation, respirations are non-labored, breath sounds are equal, Symmetrical chest wall expansion. Gastrointestinal: Soft, Nontender, Non distended Musculoskeletal: Normal ROM, no deformity. Neurological: Alert and oriented, No focal neurological deficit observed. Psychiatric: Cooperative, appropriate mood & affect. Course Vital Signs: Vital signs: Vital Signs Temperature 97.9 F 12/01/23 19:26 Pulse Rate 75 12/01/23 19:26 Respiratory Rate 22 H 12/01/23 19:26 Blood Pressure 119/70 12/01/23 19:26 Pulse Oximetry 100 12/01/23 19:26 Oxygen Delivery Me thod Room Air 12/01/23 19:26 MDM - Allergic Reaction Medical Decision Making Medical decision making: Differential diagnosis including but not limited to and based on the above HPI, review of systems and physical exam: In a patient with complaints of allergic reaction have concern for anaphylaxis, medication reactions and viral reactions. Reexamination: Patient remained stable. No oxygen requirements. Breathing is normal. Heart rate is normal. Blood pressure is normal. No altered mental status. No focal motor deficits. She does appear somewhat anxious. Assessment and plan: Allergic reaction ?Solu-Medrol, Pepcid and Benadryl in the emergency room IV. - Discharged home - Discussed plan with patient. Answered any questions. - Evaluation and treatment of this problem were appropriate in the emergency setting. No radiology studies performed this visit Discharge Plan Discharge Patient Disposition: Home Clinical Impression: Allergic reaction Condition: Stable Prescriptions: New famotidine 40 mg tablet 40 mg PO DAILY Qty: 7 0RF prednisone 20 mg tablet 60 mg PO DAILY Qty: 20 0RF Rx Instructions: 3 tabs (60 mg) x 3 days. 2 tabs (40 mg) x 3 days. 1 tab (20 mg) x 3 days. 1/2 tab (10 mg) x 4 days hydroxyzine HCl 25 mg tablet 25 mg PO Q8H PRN (Reason: withdrawal symptoms) Qty: 30 0RF No Action tizanidine [Zanaflex] 4 mg capsule 4 mg PO Q6H PRN (Reason: Spasms) naloxone [Narcan] 4 mg/actuation spray,non-aerosol 4 mg intranasal Q2M PRN (Reason: opioid overdose) Qty: 2 2RF Rx Instructions: spray 1 dose into 1 nostril alternate nostrils w ea dose until help arrive (DME) finger splint Misc See Rx Instructions .Route Qty: 1 0RF Rx Instructions: As directed cholecalciferol (vitamin D3) 25 mcg (1,000 unit) capsule 25 mcg PO DAILY hydrocodone-acetaminophen 7.5-325 mg tablet 1 tab PO Q8H PRN (Reason: pain) Linzess 145 mcg capsule 145 mcg PO QAM hydroxyzine pamoate 25 mg capsule 25 mg PO BID PRN (Reason: anxiety) Qty: 60 3RF Rx Instructions: Take one capsule twice per day as needed for anxiety azithromycin 250 mg tablet See Rx Instructions PO .COMPLEX Qty: 6 0RF Rx Instructions: For 250 mg dose pack: take 500 mg today (day 1), then 250 mg for 4 days (days 2-5) PO sucralfate [Carafate] 1 gram tablet 1 g PO DAILY Rx Instructions: TAKE 1 TABLET BY MOUTH TWICE DAILY dicyclomine 20 mg tablet 20 mg PO QID PRN (Reason: Abdominal cramping) Qty: 20 0RF Medrol (Daniel) 4 mg tablets,dose pack See Rx Instructions .ROUTE .COMPLEX Qty: 21 0RF Rx Instructions: orally per package directions cetirizine 10 mg tablet 10 mg PO BID Qty: 14 0RF Discharge Orders: Discharge ED (Routine); Ordered 12/01/23 Ordered By: Kary Vee Referrals: Mattie Summers DO [Primary Care Provider] - Patient Instructions: Opioid Safety, Pain Management Activity Restrictions/Additional Instructions: Thank you for choosing [facility] for your healthcare needs today. Please realize this is an emergency room and that we are providing you with a medical screening exam and this may not be complete and all inclusive of all the testing and or work up that you may need to determine your ailment or severity of your illness. You have been screened and evaluated and felt safe for discharge. Health conditions do change or evolve sometimes and as such it is important that you follow up with your Primary Doctor to be re checked, 3-5 days is a general good time frame for follow up. 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
[2023-12-01] MEDS: famotidine 20 mg/2 mL INJ 40 MG IVP (19:53)
[2023-12-01] MEDS: methylPREDNISolone sod succ 125 mg/2 mL INJ IVP (19:56)
[2023-12-01] MEDS: diphenhydrAMINE 50 mg/mL SDV 1mL IVP (19:57)
[2023-12-01 21:16] VITALS: BP 116/77; PULSE 70; O2SAT 99
== END 2023-12-01 21:17 | disposition home or self-care (01) ==
PROVIDERS: Emergency Provider Emergency Medicine; PCP Family Medicine
DX: T78.40XA Allergy, unspecified, initial encounter (principal); X58.XXXA Exposure to other specified factors, initial encounter
CPT/HCPCS: 96374; 96375; 99284; J1200; J2919; J3490

== ENCOUNTER 2024-04-20 08:12 | Outpatient (CLI) | payer MEDICARE, SELFPAY ==
--- NOTE | 2024-04-20 08:30 | MM_ITS ---
WS: [id number] DIAGNOSTIC BILATERAL DIGITAL BREAST TOMOSYNTHESIS MAMMOGRAPHY WITH CAD Bilateral breast ultrasound, limited HISTORY: Pain, multifocal RIGHT breast. COMPARISON: None available. TECHNIQUE: Bilateral craniocaudad, mediolateral oblique, and mediolateral views are submitted with tomosynthesis and SM. Spot compression RIGHT MLO and CC. Computer aided detection utilized. Breast composition: The breasts are extremely dense, which lowers the sensitivity of mammography. Dense fibroglandular tissue throughout the RIGHT breast. No abnormalities are noted in the areas of pain. There is increased soft tissue in the retroareolar LEFT breast which will need further evaluation. Otherwise LEFT breast is negative. RIGHT: Extremely dense heterogeneous background echotexture. No abnormalities noted in the area as directed by the patient which included 10:00 and retroareolar. There is dense fibroglandular tissue with shadowing. Simple cyst is noted at 12:00 1 cm from the nipple measuring 0.4 x 0.2 x 0.5 cm. LEFT: Normal retroareolar soft tissues. Very dense heterogeneous background echotexture but there is no discrete mass or shadowing. Ducts are prominent but not dilated. MM/MM diag BI tomosynthesis [id number] IMPRESSION: BI-RADS: 2 - Benign FOLLOW UP: Age 39 1. No solid mass noted in the areas of pain within the RIGHT breast. 2. No solid masses LEFT retroareolar region seen by ultrasound.
--- NOTE | 2024-04-20 09:00 | US_ITS ---
WS: [id number] DIAGNOSTIC BILATERAL DIGITAL BREAST TOMOSYNTHESIS MAMMOGRAPHY WITH CAD Bilateral breast ultrasound, limited HISTORY: Pain, multifocal RIGHT breast. COMPARISON: None available. TECHNIQUE: Bilateral craniocaudad, mediolateral oblique, and mediolateral views are submitted with tomosynthesis and SM. Spot compression RIGHT MLO and CC. Computer aided detection utilized. Breast composition: The breasts are extremely dense, which lowers the sensitivity of mammography. Dense fibroglandular tissue throughout the RIGHT breast. No abnormalities are noted in the areas of pain. There is increased soft tissue in the retroareolar LEFT breast which will need further evaluation. Otherwise LEFT breast is negative. RIGHT: Extremely dense heterogeneous background echotexture. No abnormalities noted in the area as directed by the patient which included 10:00 and retroareolar. There is dense fibroglandular tissue with shadowing. Simple cyst is noted at 12:00 1 cm from the nipple measuring 0.4 x 0.2 x 0.5 cm. LEFT: Normal retroareolar soft tissues. Very dense heterogeneous background echotexture but there is no discrete mass or shadowing. Ducts are prominent but not dilated. US/US breast BI limited* [id number] IMPRESSION: BI-RADS: 2 - Benign FOLLOW UP: Age 39 1. No solid mass noted in the areas of pain within the RIGHT breast. 2. No solid masses LEFT retroareolar region seen by ultrasound.
== END 2024-04-20 08:13 | disposition home or self-care (01) ==
PROVIDERS: PCP Family Medicine; Visit Provider Nurse Practitioner Women's Health
DX: Z12.39 Encounter for other screening for malignant neoplasm of breast (principal); N64.4 Mastodynia; R92.321 Mammographic fibroglandular density, right breast; R92.343 Mammographic extreme density, bilateral breasts; N60.01 Solitary cyst of right breast
CPT/HCPCS: 76642; 77062; G0279

== ENCOUNTER 2024-08-12 09:29 | Outpatient (RCR) | payer MEDICARE, SELFPAY | END 2024-09-06 23:59 | disposition home or self-care (01) | LOC: SPT 09:29 | PROVIDERS: Visit Provider Nurse Practitioner Family | DX: H81.10 Benign paroxysmal vertigo, unspecified ear (principal) | CPT/HCPCS: 95992; 97112; 97161 ==

== ENCOUNTER 2024-10-07 05:09 | Emergency (ER) | payer MEDICARE, SELFPAY ==
[2024-10-07 05:20] VITALS: BP 129/79; PULSE 85; RESP 16; TEMP 36.7; O2SAT 100; BMI 23.5
--- NOTE | 2024-10-07 05:33 | W.ED.ALLEREA ---
Documented by User: Kary Vee MD 10/07/24 05:34 HPI - Allergic Reaction General: Chief complaint: Allergic Reaction Stated complaint: Alergic reaction / Alpha Gal Positive Time Seen by Provider: 10/07/24 05:31 History of Present Illness: HPI narrative: 34-year-old female presents emergency room with possible allergic reaction. She says she feels like her throat is getting tight and she is short of breath. She feels lightheaded. Says she ate a cookie she was not supposed to the last night and she has alpha gal. No obvious swelling. No oxygen requirements. No tachypnea. She appears comfortable. Related Data Home Medications ?Medication ?Instructions ?Recorded ?Confirmed tizanidine 4 mg capsule (Zanaflex) 4 mg PO Q6H PRN Spasms 06/15/20 09/21/24 hydrocodone 7.5 mg-acetaminophen 1 tab PO Q8H PRN pain 06/05/23 09/21/24 325 mg tablet linaclotide 145 mcg capsule 145 mcg PO QAM 06/05/23 09/21/24 (Linzess) Previous Rx's ?Medication ?Instructions ?Recorded naloxone 4 mg/actuation nasal 4 mg intranasal Q2M PRN opioid 02/07/22 spray (Narcan) overdose #2 ea dicyclomine 20 mg tablet 20 mg PO QID PRN Abdominal 04/28/22 cramping #20 tabs hydroxyzine HCl 25 mg tablet 25 mg PO BID PRN anxiety/panic 07/06/24 attacks #60 tabs fluoxetine 20 mg tablet 20 mg PO .morning #30 tabs 09/21/24 methylprednisolone 4 mg tablets in See Rx Instructions PO .COMPLEX 10/07/24 a dose pack (Medrol (Daniel)) #21 ea Allergies Allergy/AdvReac Type Severity Reaction Status Date / Time cefaclor (From [facility]) Allergy Unknown Unknown--diagnosed Verified 10/07/24 05:21 with allergy testing Penicillins Allergy Unknown Hives---can Verified 10/07/24 05:21 take Keflex and amoxicillin Sulfa (Sulfonamide Allergy Unknown hives Verified 10/07/24 05:21 Antibiotics) Alpha-Gal Allergy Unknown Verified 10/07/24 05:21 (Snydgarkr-Srzyv-7,3-Gala zolpidem (From Ambien) AdvReac hallucinations Verified 10/07/24 05:21 and nightmares Review of Systems Narrative: Constitutional symptoms: Negative except as documented in HPI. Skin symptoms: Negative except as documented in HPI. Eye symptoms: Negative except as documented in HPI. ENMT symptoms: Negative except as documented in HPI. Respiratory symptoms: Negative except as documented in HPI. Cardiovascular symptoms: Negative except as documented in HPI. Gastrointestinal symptoms: Negative except as documented in HPI. Genitourinary symptoms: Negative except as documented in HPI. Musculoskeletal symptoms: Negative except as documented in HPI. Neurologic symptoms: Negative except as documented in HPI. Psychiatric symptoms: Negative except as documented in HPI. Endocrine symptoms: Negative except as documented in HPI. PFSH ED PFSH: Medical History (Updated 10/07/24 @ 05:32 by Kary Vee MD) Major depressive disorder, recurrent episode, moderate with anxious distress Nicotine dependence, cigarettes, in remission last cigarette on 11/23/23 Acute bronchitis and bronchiolitis Acute blood loss anemia Uterine prolapse Grade 3 Abnormal uterine bleeding (AUB) No pertinent past medical history Denies diabetes, hypertension, seizures, DVT/PE PCP: Dr. [facility] COVID-19 Intervertebral disc disorders with radiculopathy, lumbosacral region Recurrent UTI Nicotine dependence, cigarettes, with unspecified nicotine-induced disorders Gastritis and duodenitis History of eating disorder Nicotine dependence, cigarettes, uncomplicated Panic disorder Chronic post-traumatic stress disorder Surgical History (Updated 04/06/24 @ 09:59 by Deidre Ty NP) History of bilateral salpingectomy History of hysterectomy S/P tonsillectomy S/P tubal ligation laparoscopic procedure, performed in 2014 History of back surgery 2020--T12 and L1 H/O ureter repair History of colonoscopy (~2015) History of laparoscopic cholecystectomy History of esophagogastroduodenoscopy (EGD) (~11/2019) Family History Mother Chronic kidney disease (CKD) Stroke Ovarian cancer diagnosed at age 32 or 33 Grandfather No problems noted. Grandmother Diabetes paternal Ovarian cancer maternal, age at diagnosis unknown Father Hyperlipidemia Stroke Family/Other Ovarian cancer maternal aunt, age age at diagnosis unknown Denies family history of Colon cancer Heart disease Hypertension Uterine cancer Thyroid disease Social History Smoking and tobacco/nicotine status: never used tobacco/nicotine Alcohol intake: never Substance/Drug Use: never Physical Exam Narrative: EXAM NARRATIVE: General: Alert, no acute distress. Skin: Warm, dry. Head: Normocephalic, atraumatic. Neck: Supple, trachea midline. Eye: Extraocular movements are intact. Ears, nose, mouth and throat: mucosa moist. Cardiovascular: Regular, Normal peripheral perfusion. Respiratory: Lungs are clear to auscultation, respirations are non-labored, breath sounds are equal, Symmetrical chest wall expansion. Gastrointestinal: Soft, Nontender, Non distended Musculoskeletal: Normal ROM, no deformity. Neurological: Alert and oriented, No focal neurological deficit observed. Psychiatric: Cooperative, appropriate mood & affect. Course Vital Signs: Vital signs: Vital Signs Temperature 98.0 F 10/07/24 05:20 Pulse Rate 78 10/07/24 07:05 Respiratory Rate 18 10/07/24 07:05 Blood Pressure 126/72 10/07/24 07:05 Pulse Oximetry 99 10/07/24 07:05 Oxygen Delivery Me thod Room Air 10/07/24 07:05 MDM - Allergic Reaction Medical Decision Making Medical decision making: Differential diagnosis including but not limited to and based on the above HPI, review of systems and physical exam: In a patient with complaints of allergic reaction have concern for anaphylaxis, medication reactions and viral reactions. Orders placed to evaluate differential diagnosis based on the above differential, HPI and physical exam Assessment and plan: Allergic reaction ? IV Solu-Medrol in emergency room Patient care transitioned to Dr. Rolle at shift change. We will observe for a bit before she goes home and make sure she is feeling better. Discharge Plan Discharge Patient Disposition: Home Clinical Impression: Allergic reaction Condition: Stable Prescriptions: New methylprednisolone [Medrol (Daniel)] 4 mg tablets,dose pack See Rx Instructions .ROUTE .COMPLEX Qty: 21 0RF Rx Instructions: orally per package directions No Action tizanidine [Zanaflex] 4 mg capsule 4 mg PO Q6H PRN (Reason: Spasms) hydroxyzine HCl 25 mg tablet 25 mg PO BID PRN (Reason: anxiety/panic attacks) Qty: 60 4RF Rx Instructions: May take one tablet twice per day as needed for anxiety/panic attacks naloxone [Narcan] 4 mg/actuation spray,non-aerosol 4 mg intranasal Q2M PRN (Reason: opioid overdose) Qty: 2 2RF Rx Instructions: spray 1 dose into 1 nostril alternate nostrils w ea dose until help arrive hydrocodone-acetaminophen 7.5-325 mg tablet 1 tab PO Q8H PRN (Reason: pain) Linzess 145 mcg capsule 145 mcg PO QAM fluoxetine 20 mg tablet 20 mg PO .morning Qty: 30 4RF Rx Instructions: Take one tablet every morning dicyclomine 20 mg tablet 20 mg PO QID PRN (Reason: Abdominal cramping) Qty: 20 0RF Discharge Orders: Discharge ED (Routine); Ordered 10/07/24 Ordered By: Huey Rolle Discharge Diet: Usual diet Discharge Activity: Resume usual activity Patient Instructions: General Allergic Reaction (ED), Opioid Safety, Pain Management, Patient Portal & Dawna Instructions Activity Restrictions/Additional Instructions: Thank you for choosing [facility] for your healthcare needs today. You have been screened and evaluated and felt safe for discharge. Health conditions do change or evolve sometimes and as such it is important that you follow up with your Primary Doctor to be re checked, 3-5 days is a general good time frame for follow up. You are always welcome to return to the ED for re assessment if your symptoms are worsening or you have new concerns You are seen emergency room for allergic reaction. You did respond well to medications given you are discharged home on a steroid taper you can also use a liquid Benadryl which is tolerable. We would alpha-gal. If you have recurrence of symptoms you can return to the emergency room Print Language: Slovak Sign Out Sign Out Data: Patient Sign Out occurred on 10/07/24 at 06:54. Patient's care was discussed, and care was transferred from Kary Vee MD to Huey Rolle DO. 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[employer] Documented by User: Huey Rolle DO 10/07/24 07:41 HPI - Allergic Reaction General: Chief complaint: Allergic Reaction Stated complaint: Alergic reaction / Alpha Gal Positive Time Seen by Provider: 10/07/24 05:31 Related Data Home Medications ?Medication ?Instructions ?Recorded ?Confirmed tizanidine 4 mg capsule (Zanaflex) 4 mg PO Q6H PRN Spasms 06/15/20 09/21/24 hydrocodone 7.5 mg-acetaminophen 1 tab PO Q8H PRN pain 06/05/23 09/21/24 325 mg tablet linaclotide 145 mcg capsule 145 mcg PO QAM 06/05/23 09/21/24 (Linzess) Previous Rx's ?Medication ?Instructions ?Recorded naloxone 4 mg/actuation nasal 4 mg intranasal Q2M PRN opioid 02/07/22 spray (Narcan) overdose #2 ea dicyclomine 20 mg tablet 20 mg PO QID PRN Abdominal 04/28/22 cramping #20 tabs hydroxyzine HCl 25 mg tablet 25 mg PO BID PRN anxiety/panic 07/06/24 attacks #60 tabs fluoxetine 20 mg tablet 20 mg PO .morning #30 tabs 09/21/24 methylprednisolone 4 mg tablets in See Rx Instructions PO .COMPLEX 10/07/24 a dose pack (Medrol (Daniel)) #21 ea Allergies Allergy/AdvReac Type Severity Reaction Status Date / Time cefaclor (From [facility]) Allergy Unknown Unknown--diagnosed Verified 10/07/24 05:21 with allergy testing Penicillins Allergy Unknown Hives---can Verified 10/07/24 05:21 take Keflex and amoxicillin Sulfa (Sulfonamide Allergy Unknown hives Verified 10/07/24 05:21 Antibiotics) Alpha-Gal Allergy Unknown Verified 10/07/24 05:21 (Dnrdzhtzg-Zrbbs-4,3-Gala zolpidem (From Ambien) AdvReac hallucinations Verified 10/07/24 05:21 and nightmares [facility] ED PFSH: Medical History (Updated 10/07/24 @ 05:32 by Kary Vee MD) Major depressive disorder, recurrent episode, moderate with anxious distress Nicotine dependence, cigarettes, in remission last cigarette on 11/23/23 Acute bronchitis and bronchiolitis Acute blood loss anemia Uterine prolapse Grade 3 Abnormal uterine bleeding (AUB) No pertinent past medical history Denies diabetes, hypertension, seizures, DVT/PE PCP: Dr. [facility] COVID-19 Intervertebral disc disorders with radiculopathy, lumbosacral region Recurrent UTI Nicotine dependence, cigarettes, with unspecified nicotine-induced disorders Gastritis and duodenitis History of eating disorder Nicotine dependence, cigarettes, uncomplicated Panic disorder Chronic post-traumatic stress disorder Surgical History (Updated 04/06/24 @ 09:59 by Deidre Ty NP) History of bilateral salpingectomy History of hysterectomy S/P tonsillectomy S/P tubal ligation laparoscopic procedure, performed in 2014 History of back surgery 2020--T12 and L1 H/O ureter repair History of colonoscopy (~2015) History of laparoscopic cholecystectomy History of esophagogastroduodenoscopy (EGD) (~11/2019) Family History Mother Chronic kidney disease (CKD) Stroke Ovarian cancer diagnosed at age 32 or 33 Grandfather No problems noted. Grandmother Diabetes paternal Ovarian cancer maternal, age at diagnosis unknown Father Hyperlipidemia Stroke Family/Other Ovarian cancer maternal aunt, age age at diagnosis unknown Denies family history of Colon cancer Heart disease Hypertension Uterine cancer Thyroid disease Social History Smoking and tobacco/nicotine status: never used tobacco/nicotine Alcohol intake: never Substance/Drug Use: never Course Vital Signs: Vital signs: Vital Signs Temperature 98.0 F 10/07/24 05:20 Pulse Rate 78 10/07/24 07:05 Respiratory Rate 18 10/07/24 07:05 Blood Pressure 126/72 10/07/24 07:05 Pulse Oximetry 99 10/07/24 07:05 Oxygen Delivery Me thod Room Air 10/07/24 07:05 MDM - Allergic Reaction Medical Decision Making Medical decision making: Differential diagnosis including but not limited to and based on the above HPI, review of systems and physical exam: In a patient with complaints of allergic reaction have concern for anaphylaxis, medication reactions and viral reactions. Orders placed to evaluate differential diagnosis based on the above differential, HPI and physical exam Assessment and plan: Allergic reaction ? IV Solu-Medrol in emergency room Patient care transitioned to Dr. Rolle at shift change. We will observe for a bit before she goes home and make sure she is feeling better. Care assumed at change of shift patient is feeling better after Solu-Medrol and Benadryl. Will discharge home with steroid taper [id number] Benadryl as needed follow-up with primary care No radiology studies performed this visit Discharge Plan Discharge Patient Disposition: Home Clinical Impression: Allergic reaction Condition: Stable Prescriptions: New methylprednisolone [Medrol (Daniel)] 4 mg tablets,dose pack See Rx Instructions .ROUTE .COMPLEX Qty: 21 0RF Rx Instructions: orally per package directions No Action tizanidine [Zanaflex] 4 mg capsule 4 mg PO Q6H PRN (Reason: Spasms) hydroxyzine HCl 25 mg tablet 25 mg PO BID PRN (Reason: anxiety/panic attacks) Qty: 60 4RF Rx Instructions: May take one tablet twice per day as needed for anxiety/panic attacks naloxone [Narcan] 4 mg/actuation spray,non-aerosol 4 mg intranasal Q2M PRN (Reason: opioid overdose) Qty: 2 2RF Rx Instructions: spray 1 dose into 1 nostril alternate nostrils w ea dose until help arrive hydrocodone-acetaminophen 7.5-325 mg tablet 1 tab PO Q8H PRN (Reason: pain) Linzess 145 mcg capsule 145 mcg PO QAM fluoxetine 20 mg tablet 20 mg PO .morning Qty: 30 4RF Rx Instructions: Take one tablet every morning dicyclomine 20 mg tablet 20 mg PO QID PRN (Reason: Abdominal cramping) Qty: 20 0RF Discharge Orders: Discharge ED (Routine); Ordered 10/07/24 Ordered By: Huey Rolle Discharge Diet: Usual diet Discharge Activity: Resume usual activity Patient Instructions: General Allergic Reaction (ED), Opioid Safety, Pain Management, Patient Portal & [facility] Instructions Activity Restrictions/Additional Instructions: Thank you for choosing [facility] for your healthcare needs today. You have been screened and evaluated and felt safe for discharge. Health conditions do change or evolve sometimes and as such it is important that you follow up with your Primary Doctor to be re checked, 3-5 days is a general good time frame for follow up. You are always welcome to return to the ED for re assessment if your symptoms are worsening or you have new concerns You are seen emergency room for allergic reaction. You did respond well to medications given you are discharged home on a steroid taper you can also use a liquid Benadryl which is tolerable. We would alpha-gal. If you have recurrence of symptoms you can return to the emergency room Print Language: Slovak Sign Out Sign Out Data: Patient Sign Out occurred on 10/07/24 at 06:54. Patient's care was discussed, and care was transferred from Kary Vee MD to Huey Rolle DO. 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
[2024-10-07] MEDS: methylPREDNISolone sod succ 125 mg/2 mL INJ IVP (05:53)
--- NOTE | 2024-10-07 06:59 | PC.NURSE ---
THIS NURSE ASSUMED CARE @ [id number].
[2024-10-07 07:05] VITALS: BP 126/72; PULSE 78; RESP 18; O2SAT 99
[2024-10-07 07:42] VITALS: PULSE 81; O2SAT 99
== END 2024-10-07 07:43 | disposition home or self-care (01) ==
PROVIDERS: Emergency Provider Family Medicine
DX: T78.40XA Allergy, unspecified, initial encounter (principal); X58.XXXA Exposure to other specified factors, initial encounter
CPT/HCPCS: 96374; 99284; J2919

== ENCOUNTER 2025-01-24 13:40 | Emergency (ER) | payer MEDICARE, SELFPAY ==
[2025-01-24 13:54] VITALS: BP 108/73; PULSE 72; RESP 17; TEMP 36.4; O2SAT 100; BMI 23.5
[2025-01-24 14:14] LABS: Hematocrit 39.3 % (36-47); Hemoglobin 13.30 g/dL (11.27-16.99); Mean Corpuscular HGB Conc 33.8 g/dL (30-55); Mean Corpuscular Hemoglobin 30.9 pg (27-33); Mean Corpuscular Volume 91.4 fl (85-98); Nucleated Red Blood Cells % 0 %; Platelet Count 195 10^3/cmm (157-399); Red Blood Count 4.30 10^6/uL (3.85-5.65); White Blood Count 3.24 10^3/uL (3.29-11.43)
--- NOTE | 2025-01-24 14:22 | W.ED.FEMALGU ---
HPI - Female Genitourinary General: Chief complaint: Urogenital-Female Stated complaint: lower back pain, slight trouble urinating Time Seen by Provider: 01/24/25 14:15 History of Present Illness: 34-year-old female presents to the emergency room with complaints of low back pain dysuria urgency. She has been on 2 rounds of antibiotics recently she had a culture done at her doctor's office she was able to show me the culture and I could see a portion of the sensitivities on her portal that she accessed on her phone or in the room she has not had any vomiting or diarrhea she has used some Azo's. Associated symptoms: Deny abdominal pain Related Data Home Medications ?Medication ?Instructions ?Recorded ?Confirmed tizanidine 4 mg capsule (Zanaflex) 4 mg PO Q6H PRN Spasms 06/15/20 01/13/25 hydrocodone 7.5 mg-acetaminophen 1 tab PO Q8H PRN pain 06/05/23 01/13/25 325 mg tablet linaclotide 145 mcg capsule 145 mcg PO QAM 06/05/23 01/13/25 (Linzess) hydroxychloroquine 200 mg tablet 200 mg PO BID 01/13/25 01/13/25 (Plaquenil) levofloxacin 500 mg tablet 500 mg PO DAILY 01/13/25 01/13/25 magnesium aspart,citrate,oxide mg PO DAILY 01/13/25 01/13/25 ondansetron 4 mg disintegrating 4 mg PO Q8H PRN 01/13/25 01/13/25 tablet riboflavin (vitamin B2) 400 mg 400 mg PO DAILY 01/13/25 01/13/25 tablet topiramate 25 mg tablet 25 mg PO DAILY 01/13/25 01/13/25 ubrogepant 100 mg tablet mg PO PRN 01/13/25 01/13/25 Previous Rx's ?Medication ?Instructions ?Recorded naloxone 4 mg/actuation nasal 4 mg intranasal Q2M PRN opioid 02/07/22 spray (Narcan) overdose #2 ea dicyclomine 20 mg tablet 20 mg PO QID PRN Abdominal 04/28/22 cramping #20 tabs methylprednisolone 4 mg tablets in See Rx Instructions PO .COMPLEX 10/07/24 a dose pack (Medrol (Daniel)) #21 ea hydroxyzine HCl 25 mg tablet 25 mg PO BID PRN anxiety/panic 11/16/24 attacks #60 tabs fluoxetine 20 mg capsule 20 mg PO .morning #30 caps 01/13/25 amoxicillin 875 mg-potassium 1 tab PO BID #14 tabs 01/24/25 clavulanate 125 mg tablet phenazopyridine 200 mg tablet 200 mg PO Q8H 6 doses #6 tabs 01/24/25 (Pyridium) Allergies Allergy/AdvReac Type Severity Reaction Status Date / Time cefaclor (From [facility]) Allergy Unknown Unknown--diagnosed Verified 01/13/25 10:48 with allergy testing Penicillins Allergy Unknown Hives---can Verified 01/13/25 10:48 take Keflex and amoxicillin Sulfa (Sulfonamide Allergy Unknown hives Verified 01/13/25 10:48 Antibiotics) Alpha-Gal Allergy Unknown Verified 01/13/25 10:48 (Atgviztac-Nqngg-2,3-Gala zolpidem (From Ambien) AdvReac hallucinations Verified 01/13/25 10:48 and nightmares Review of Systems Const: Denies: fever(s) or chills Card: Denies: chest pain Resp: Denies: dyspnea GI: Denies: abdominal pain : Denies: dysuria, urinary frequency or urinary urgency Musc: Denies: neck pain or back pain Skin/Breast: Denies: rash PFSH ED PFSH: Medical History Alpha-gal syndrome Major depressive disorder, recurrent episode, moderate with anxious distress Nicotine dependence, cigarettes, in remission last cigarette on 11/23/23 Acute bronchitis and bronchiolitis Acute blood loss anemia Uterine prolapse Grade 3 Abnormal uterine bleeding (AUB) No pertinent past medical history Denies diabetes, hypertension, seizures, DVT/PE PCP: Dr. Summers [facility] COVID-19 Intervertebral disc disorders with radiculopathy, lumbosacral region Recurrent UTI Nicotine dependence, cigarettes, with unspecified nicotine-induced disorders Gastritis and duodenitis History of eating disorder Nicotine dependence, cigarettes, uncomplicated Panic disorder Chronic post-traumatic stress disorder Surgical History History of bilateral salpingectomy History of hysterectomy S/P tonsillectomy S/P tubal ligation laparoscopic procedure, performed in 2014 History of back surgery 2020--T12 and L1 H/O ureter repair History of colonoscopy (~2015) History of laparoscopic cholecystectomy History of esophagogastroduodenoscopy (EGD) (~11/2019) Family History Mother Chronic kidney disease (CKD) Stroke Ovarian cancer diagnosed at age 32 or 32 Grandfather No problems noted. Grandmother Diabetes paternal Ovarian cancer maternal, age at diagnosis unknown Father Hyperlipidemia Stroke Family/Other Ovarian cancer maternal aunt, age age at diagnosis unknown Denies family history of Colon cancer Heart disease Hypertension Uterine cancer Thyroid disease Social History Smoking and tobacco/nicotine status: never used tobacco/nicotine Alcohol intake: never Substance/Drug Use: never Physical Exam Const: COMMON NORMALS: no acute distress GENERAL APPEARANCE: cooperative and comfortable ORIENTATION/CONSCIOUSNESS: Yes awake, Yes oriented to person, Yes oriented to place and Yes oriented to time HENMT: COMMON NORMALS: normocephalic, atraumatic and hearing grossly normal bilaterally HEAD & SCALP: normocephalic and atraumatic Resp: COMMON NORMALS: normal respiratory effort, No retractions, No use of accessory muscles and clear to auscultation bilaterally AUSCULTATION: clear to auscultation bilaterally Cardio: COMMON NORMALS: regular rate, regular rhythm and No murmurs present (Cardio) RATE: regular rate RHYTHM: regular rhythm GI: COMMON NORMALS: Soft to palpation and No hepatosplenomegaly present AUSCULTATION: Yes normoactive bowel sounds PALPATION: Yes Soft to palpation, No Tenderness to palpation present (GI), No Guarding due to palpation present (GI) and Yes No hepatosplenomegaly present : COMMON NORMALS: Yes no CVA tenderness BLADDER/KIDNEY EXAM: Yes no CVA tenderness Back/Pelvis: COMMON NORMALS: no CVA tenderness Extremity: COMMON NORMALS: normal to inspection, capillary refill normal, no clubbing, cyanosis or edema, no calf tenderness and no pedal edema Neuro: SENSORIUM/ORIENTATION: Yes oriented to person, Yes oriented to place and Yes oriented to time Skin: COMMON NORMALS: no rashes or lesions noted GENERAL SKIN EXAM: no rashes or lesions noted Course Vital Signs: Vital signs: Vital Signs Temperature 97.6 F 01/24/25 13:54 Pulse Rate 67 01/24/25 15:36 Respiratory Rate 17 01/24/25 13:54 Blood Pressure 99/61 01/24/25 15:36 Pulse Oximetry 98 01/24/25 15:36 Oxygen Delivery Me thod Room Air 01/24/25 13:54 MDM - Female Medical Decision Making Patient does have cystitis. Based on culture results she showed me it is susceptible to penicillin she had an Enterococcus faecalis on her urine. I could not see all of the sensitivities. She tells me she has taken Augmentin in the past without difficulties I will she list penicillin as an allergy she tolerated the Augmentin without a problem. Will go ahead and redo Augmentin for now also give her Pyridium to use as needed and have her follow-up with her primary care doctor Medical Records I reviewed the patient's medical records. Reviewed patient's outside records on her portal on patient's phone with her assistance. Lab Data I reviewed the patient's lab results. 01/24/25 14:09 01/24/25 14:09 Laboratory Results WBC 3.24 10^3/uL (3.29-11.43) L 01/24/25 14:09 RBC 4.30 10^6/uL (3.85-5.65) 01/24/25 14:09 Hgb 13.30 g/dL (11.27-16.99) 01/24/25 14:09 Hct 39.3 % (36-47) 01/24/25 14:09 MCV 91.4 fl (85-98) 01/24/25 14:09 MCH 30.9 pg (27-33) 01/24/25 14:09 MCHC 33.8 g/dL (30-55) 01/24/25 14:09 RDW 11.6 % (12.1-15.1) L 01/24/25 14:09 Plt Count 195 10^3/cmm (157-399) 01/24/25 14:09 MPV 9.5 fL (7.4-10.4) 01/24/25 14:09 Neut % (Auto) 47.2 % 01/24/25 14:09 Lymph % (Auto) 38.6 % 01/24/25 14:09 Wallace % (Auto) 9.0 % 01/24/25 14:09 Eos % (Auto) 4.3 % 01/24/25 14:09 Baso % (Auto) 0.9 % 01/24/25 14:09 Neut # (Auto) 1.53 10^3/uL (1.8-7.7) L 01/24/25 14:09 Lymph # (Auto) 1.3 10^3/uL (0.8-4.8) 01/24/25 14:09 Wallace # (Auto) 0.3 10^3/uL (0.2-0.9) 01/24/25 14:09 Eos # (Auto) 0.1 10^3/uL (0.0-0.8) 01/24/25 14:09 Baso # (Auto) 0.0 10^3/uL (0.0-0.1) 01/24/25 14:09 Nucleated RBC % (auto) 0 % 01/24/25 14:09 Nucleated RBCs # 0.0 /100WBC 01/24/25 14:09 Sodium 138 mmol/L (136-145) 01/24/25 14:09 Potassium 4.5 mmol/L (3.5-5.1) 01/24/25 14:09 Chloride 103 mmol/L (98-107) 01/24/25 14:09 Carbon Dioxide 27 mmol/L (22-29) 01/24/25 14:09 Anion Gap 12.5 (5-19) 01/24/25 14:09 BUN 11 mg/dL (6-20) 01/24/25 14:09 Creatinine 0.8 mg/dL (0.5-0.9) 01/24/25 14:09 GFR Calculation 81.6 mL/min (90-130) L 01/24/25 14:09 Glucose 85 mg/dL (65-115) 01/24/25 14:09 Calculated Osmolality 285 mOsm/kg (285-295) 01/24/25 14:09 Calcium 9.4 mg/dL (8.5-10.5) 01/24/25 14:09 Total Bilirubin 0.3 mg/dL (0.15-1.2) 01/24/25 14:09 AST 17 U/L (0-32) 01/24/25 14:09 ALT 12 U/L (0-33) 01/24/25 14:09 Alkaline Phosphatase 42 U/L (35-105) 01/24/25 14:09 Total Protein 7.0 g/dL (6.6-8.7) 01/24/25 14:09 Albumin 4.7 g/dL (3.5-5.2) 01/24/25 14:09 Globulin 2.3 g/dL (1.3-4.6) 01/24/25 14:09 HCG, Qual Negative (Negative) 01/24/25 14:09 Urine Color Dark yellow (Yellow) A 01/24/25 14:35 Urine Appearance Clear (CLEAR) 01/24/25 14:35 Urine pH 6.5 (5-7) 01/24/25 14:35 Ur Specific [place] 1.007 (1.005-1.030) 01/24/25 14:35 Urine Protein Negative (Negative) 01/24/25 14:35 Urine Glucose (UA) Negative (Normal) 01/24/25 14:35 Urine Ketones Negative (Negative) 01/24/25 14:35 Urine Blood Negative (Negative) 01/24/25 14:35 Urine Nitrate Positive (Negative) A 01/24/25 14:35 Urine Bilirubin 1+ (Negative) H 01/24/25 14:35 Urine Urobilinogen 1.0 mg/dL (Negative) 01/24/25 14:35 Ur Leukocyte Esterase Trace (Negative) A 01/24/25 14:35 Urine RBC 0-2 /hpf (0-2) 01/24/25 14:35 Urine WBC 0-5 /hpf (0-5) 01/24/25 14:35 Ur Squamous Epith Cells 0-5 /hpf (0-5) 01/24/25 14:35 Amorphous Sediment Not Reportable 01/24/25 14:35 Urine Bacteria None seen /hpf (NONE) 01/24/25 14:35 Hyaline Casts 0.40 /lpf 01/24/25 14:35 No radiology studies performed this visit Discharge Plan Discharge Patient Disposition: Home Clinical Impression: Urinary tract infection Condition: Stable Prescriptions: New amoxicillin-pot clavulanate 875-125 mg tablet 1 tab PO BID Qty: 14 0RF phenazopyridine [Pyridium] 200 mg tablet 200 mg PO Q8H Qty: 6 0RF No Action tizanidine [Zanaflex] 4 mg capsule 4 mg PO Q6H PRN (Reason: Spasms) topiramate 25 mg tablet 25 mg PO DAILY hydroxychloroquine [Plaquenil] 200 mg tablet 200 mg PO BID levofloxacin 500 mg tablet 500 mg PO DAILY ondansetron 4 mg tablet,disintegrating 4 mg PO Q8H PRN riboflavin (vitamin B2) 400 mg tablet 400 mg PO DAILY magnesium aspart,citrate,oxide 400 mg magnesium capsule PO DAILY ubrogepant 100 mg tablet PO PRN fluoxetine 20 mg capsule 20 mg PO .morning Qty: 30 3RF Rx Instructions: Take one capsule every morning naloxone [Narcan] 4 mg/actuation spray,non-aerosol 4 mg intranasal Q2M PRN (Reason: opioid overdose) Qty: 2 2RF Rx Instructions: spray 1 dose into 1 nostril alternate nostrils w ea dose until help arrive hydrocodone-acetaminophen 7.5-325 mg tablet 1 tab PO Q8H PRN (Reason: pain) Linzess 145 mcg capsule 145 mcg PO QAM hydroxyzine HCl 25 mg tablet 25 mg PO BID PRN (Reason: anxiety/panic attacks) Qty: 60 4RF Rx Instructions: May take one tablet twice per day as needed for anxiety/panic attacks dicyclomine 20 mg tablet 20 mg PO QID PRN (Reason: Abdominal cramping) Qty: 20 0RF methylprednisolone [Medrol (Daniel)] 4 mg tablets,dose pack See Rx Instructions .ROUTE .COMPLEX Qty: 21 0RF Rx Instructions: orally per package directions Discharge Orders: Discharge ED (Routine); Ordered 01/24/25 Ordered By: Huey Rolle Referrals: Mattie Summers DO [Primary Care Provider, Family Practice] Discharge Diet: Usual diet Discharge Activity: Increase activity as tolerated Patient Instructions: Urinary Tract Infection in Women (ED), Opioid Safety, Pain Management, Patient Portal & Dawna Instructions Activity Restrictions/Additional Instructions: Thank you for choosing [facility] for your healthcare needs today. It is very important that you follow up as instructed or that you return to the Emergency Department should you have concerns or if your condition changes or worsens in any way. Emergency department visits are focused on emergent conditions, in some cases you may require further evaluation on an outpatient basis. You were seen in the emergency room with complaints of urinary tract symptoms. Laboratory test did show you have a bladder infection. Based on the culture you have shown me from portal from your other physician would recommend Augmentin. You have a listed penicillin in your allergy list but in our discussion you stated you had taken Augmentin without difficulty before. We gave this to you in the tablet form 1 pill twice a day for 7 days. A culture will be done on today's urine sample as well. (Please note that included in your discharge packet is information concerning opioid safety and pain management. 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
[2025-01-24 14:35] LABS: HCG, Serum Qual Negative (Negative)
[2025-01-24 14:41] LABS: Alanine Aminotransferase 12 U/L (0-33); Albumin Level 4.7 g/dL (3.5-5.2); Alkaline Phosphatase 42 U/L (35-105); Aspartate Amino Transferase 17 U/L (0-32); Blood Urea Nitrogen 11 mg/dL (6-20); Calcium 9.4 mg/dL (8.5-10.5); Carbon Dioxide 27 mmol/L (22-29); Chloride 103 mmol/L (98-107); Globulin 2.3 g/dL (1.3-4.6); Glucose 85 mg/dL (65-115); Osmolality Calculated 285 mOsm/kg (285-295); Sodium 138 mmol/L (136-145); Total Protein 7.0 g/dL (6.6-8.7)
[2025-01-24 14:42] LABS: Anion Gap 12.5 (5-19); Potassium 4.5 mmol/L (3.5-5.1)
[2025-01-24 14:54] LABS: Glucose Urine UA Negative (Normal); Nitrate Urine Positive (Negative); Specific Gravity, Urine 1.007 (1.005-1.030)
[2025-01-24 14:57] LABS: Add Urine Microscopic? YES
[2025-01-24 15:10] LABS: UA Slide Review UA Slide Review Perf
[2025-01-24 15:36] VITALS: BP 99/61; PULSE 67; O2SAT 98
== END 2025-01-24 15:39 | disposition home or self-care (01) ==
PROVIDERS: Physician Assistant; Emergency Provider Family Medicine; PCP Family Medicine
DX: N39.0 Urinary tract infection, site not specified (principal)
CPT/HCPCS: 36415; 80053; 81001; 84703; 85025; 99283